=== PATIENT | female | born 1955 | race American Indian/Alaskan Native ===

== ENCOUNTER 2017-07-04 07:31 | Day surgery (SDC) | payer MEDICARE, OTHER ==
[2017-06-14 10:50] VITALS: BMI 24.9
[2017-07-04] MEDS ORDERED: Lidocaine 2% Inj (20ml) ONE (07:50)
[2017-07-04] MEDS ORDERED: Midazolam 2 MG/2 ML VIAL ONE ×2 (07:51→08:19)
[2017-07-04] MEDS ORDERED: Iodixanol 320 MG/ML 100 ML BOTTLE IV ONE (07:52)
[2017-07-04] MEDS ORDERED: Nitroglycerin 50mg in D5W 50 MG/250 ML BOTTLE IV ONE (07:52)
[2017-07-04] MEDS ORDERED: Iodixanol 320 MG/ML 200 ML BOTTLE IV ONE (07:52)
[2017-07-04 08:17] LABS: BASO # 0.03 K/mm3 (0.0-2.0); BASO % 0.8 % (0.0-3.0); EOS # 0.1 (0.0-0.7); GRAN # 2.16 (1.4-6.5); GRAN % 54.8 % (50.0-68.0); HEMOGLOBIN 16.7 g/dL (12.0-16.0); LYMPH # 1.3 (1.2-3.4); LYMPH % 32.5 % (22.0-35.0); MEAN CELL VOLUME 92.2 fl (80.0-105.0); MEAN CORPUSCULAR HGB CONC 33.6 g/dl (31.0-37.0); MEAN PLATELET VOLUME 11.1 fl (7.0-11.0); MONO # 0.4 (0.1-0.6); MONO % 8.9 % (1.0-6.0); RBC 5.39 10^6/uL (3.5-6.1); RED CELL DISTRIBUTION WIDTH 16.1 % (11.5-14.5); WHITE BLOOD COUNT 3.9 10^3/ul (4.5-11.0)
[2017-07-04] MEDS ORDERED: DiphenhydrAMINE 50 mg/ml Inj ONE (08:57)
[2017-07-04] MEDS ORDERED: Famotidine 20mg/50ml 20 MG/50 ML BAG IVPB ONE (08:58)
[2017-07-04 09:09] LABS: CALCIUM 9.9 mg/dL (8.4-10.5); INR 1.37 (0.93-1.08); PARTIAL THROMBOPLASTIN TIME 39.6 Seconds (25.1-36.5); PROTHROMBIN TIME 15.8 SECONDS (9.4-12.5)
[2017-07-04] MEDS ORDERED: Flumazenil 0.1 mg/ml Inj (5ml) IVP ONE (09:29)
[2017-07-04] MEDS ORDERED: Oxycodone/Acetaminophen 5/325 mg Tab PO PRN (10:22)
[2017-07-04 11:38] VITALS: RESP 18; TEMP 97.9
[2017-07-04 13:04] VITALS: O2SAT 92
[2017-07-04 14:11] VITALS: BP 102/68; PULSE 100
--- NOTE | 2017-07-04 18:18 | VASCULAR ---
PROCEDURE: Abdominal aortogram and bilateral lower extremity runoff with right selective views P HISTORY: End-stage renal disease. PVD with ischemic ulceration right lateral heel. HIV positive. PHYSICIAN(S): Richar Morales MD. TECHNIQUE: The relative risks and indications of the procedure were explained to the patient and consent obtained. The patient was placed supine on the arteriogram table and the left groin prepped and draped in the usual sterile fashion. Conscious sedation and monitoring were provided throughout the procedure by a nurse. Via a left common femoral artery approach, a 5 Icelandic sheath was placed in the left groin. Through the sheath and over a guidewire, a 5 Icelandic flush catheter was placed in the abdominal aorta at the level of the renal arteries and a PA DSA abdominal aortogram performed. The catheter was pulled down to the aortic bifurcation and bilateral oblique DSA pelvic arteriograms performed. Overlapping bilateral lower extremity DSA arteriograms were obtained from the inguinal ligaments to the ankles. The 5 [place]ic flush catheter was advanced over the bifurcation and placed in the proximal and mid right SFA. Additional imaging of the distal right lower extremity and lateral view of the foot was obtained. The sheath was removed and hemostasis obtained. The patient tolerated the procedure well. FINDINGS: The abdominal aorta is widely patent. The renal arteries are atretic, consistent with the patient's history for dialysis. Aortic bifurcation is normal. The common and external iliac arteries are normal and patent. An IVC filter is present. The internal iliac arteries are patent bilaterally. Right lower extremity: Smooth diffuse calcification is noted. The right common femoral artery is patent. The right profunda femoral artery is patent. The right superficial femoral artery is patent and continuous without a radiographically significant stenosis. The right popliteal artery and trifurcation are patent. The 3 right tibial vessels are patent and continuous to the foot. There is slow antegrade flow in the foot. The right dorsalis pedis artery and right plantar arch are patent. Left lower extremity: Left common femoral artery is patent. The left profunda femoral artery is patent. The left superficial femoral artery is patent and continuous without a radiographically significant stenosis. The left popliteal artery and trifurcation. The 3 left tibial vessels are patent and continuous to the ankle. IMPRESSION: 1. Calcified vessels. No significant occlusive disease is noted on the right. The ischemic changes are likely related to microvascular disease.
== END 2017-07-04 14:42 | disposition home or self-care (01) ==
LOC: SDSVAS 07:31
PROVIDERS: ATTEND Radiology Vascular & Interventional Radiology
DX: I73.9 Peripheral vascular disease, unspecified (principal); I12.0 Hypertensive chronic kidney disease with stage 5 chronic kidney disease or end stage renal disease; N18.6 End stage renal disease; L97.419 Non-pressure chronic ulcer of right heel and midfoot with unspecified severity; I48.91 Unspecified atrial fibrillation; Z21 Asymptomatic human immunodeficiency virus [HIV] infection status
CPT/HCPCS: 36247; 36415; 75625; 75716; 75774; 80048; 85025; 85610; 85730; 99152; C1760 ×2; C1769 ×2; C1887; C1894; J1200; J1644; J2250; J2405; J2930; J3010; Q9966; Q9967

== ENCOUNTER 2017-07-24 06:22 | Inpatient (IN) | payer MEDICARE, OTHER ==
--- NOTE | 2017-07-24 07:45 | ED PDOC ---
Arrival/HPI - General Historian: Patient - History of Present Illness Symptom Onset: Gradual Quality: Burning Severity Level: 10 <Jose Childers - Last Filed: 07/24/17 10:31> <YovanaLev Martínez - Last Filed: 07/24/17 12:13> - General Chief Complaint: Lower Extremity Problem/Injury Time Seen by Provider: 07/24/17 06:29 - History of Present Illness Narrative History of Present Illness (Text): 07/24/17 07:43 Patient is a 61 year old female with a past medical history of multiple myeloma s/p chemo/radiation, gangrenous cystitis, ESRD on HD, atrial fibrillation on warfarin, who presents to the Emergency department for evaluation and treatment of left lower extremity pain which began on 07/20/2017 with no specific provoking event. It is important to note that she was placed on warfarin within the past 3 weeks. The left lower extremity pain is characterized as being sharp and burning, remains localized to the left foot, and is quantified as a 10/10. Exacerbated with movement. Remits with rest. States similar symptoms were felt on the right lower extremity. States she recently underwent an angiogram for the right lower extremity with IR, Dr. Morales, which revealed no acute findings. PMD: January Bernard 07/24/17 08:25 07/24/17 09:37 (Jose Childers) Past Medical History - Provider Review Nursing Documentation Reviewed: Yes - Infectious Disease Hx of Infectious Diseases: None - Cardiac Hx Pacemaker: No - Neurological Hx Paralysis: No - Renal Hx Dialysis: Yes Type of Dialysis Access: L arm fistula - Hematological/Oncological Hx Blood Transfusions: No - Musculoskeletal/Rheumatological Hx Musculoskeletal Disorders: No - Psychiatric Hx Emotional Abuse: No Hx Physical Abuse: No Hx Substance Use: No - Anesthesia Hx Anesthesia Reactions: Yes (HIGH TOLERANCE) Hx Malignant Hyperthermia: No - Suicidal Assessment Feels Threatened In Home Enviroment: No <Jose Childers - Last Filed: 07/24/17 10:31> Family/Social History - Physician Review Nursing Documentation Reviewed: Yes Family/Social History: Unknown Family HX Smoking Status: Never Smoked Hx Alcohol Use: No Hx Substance Use: No <Jose Childers - Last Filed: 07/24/17 10:31> Allergies/Home Meds <Jose Childers - Last Filed: 07/24/17 10:31> <Lev Yen - Last Filed: 07/24/17 12:13> Allergies/Adverse Reactions: Allergies IV CONTRAST Allergy (Uncoded 07/24/17 07:23) RASH Home Medications: Home Meds Medication Instructions Recorded Confirmed Alendronate [Fosamax] 70 mg PO Q7D 06/14/17 07/04/17 Cinacalcet [Sensipar] 30 mg PO DAILY 06/14/17 07/04/17 Metoprolol Succinate [Toprol XL] 50 mg PO DAILY 06/14/17 07/04/17 Sevelamer Carbonate [Renvela] 4 tab PO ACTID 06/14/17 07/04/17 Warfarin [Coumadin] 2 mg PO DAILY 06/14/17 07/03/17 traMADol [Ultram] 50 mg PO DAILY 06/14/17 07/04/17 Review of Systems - Review of Systems Constitutional: Normal Eyes: Normal Respiratory: Normal Cardiovascular: Normal Gastrointestinal: Normal Skin: Other (left lower extremity discoloratoin) Neurological: Normal Endocrine: Normal Psychiatric: Normal <Jose Childers - Last Filed: 07/24/17 10:31> Physical Exam Temperature: Afebrile Blood Pressure: Normal Pulse: Regular Respiratory Rate: Normal Appearance: Positive for: Well-Appearing, Non-Toxic, Comfortable Pain Distress: None Mental Status: Positive for: Alert and Oriented X 3 - Systems Exam Head: Present: Atraumatic, Normocephalic Pupils: Present: PERRL Extroacular Muscles: Present: EOMI Conjunctiva: Present: Normal Respiratory/Chest: Present: Clear to Auscultation, Good Air Exchange. No: Respiratory Distress, Accessory Muscle Use Cardiovascular: Present: Normal S1, S2 Abdomen: Present: Normal Bowel Sounds. No: Tenderness, Distention, Rebound Lower Extremity: Present: Edema (left lower extremity), Normal ROM, Tenderness ( left lower extremity). No: Normal Inspection, NORMAL PULSES Neurological: Present: GCS=15, CN II-XII Intact, Motor Func Grossly Intact, Normal Sensory Function Skin: Present: Dry, Induration, Other (cool left foot). No: Normal Color Psychiatric: Present: Alert <Jose Childers - Last Filed: 07/24/17 10:31> Vital Signs Temp Pulse Resp BP Pulse Ox 07/24/17 10:10 105 H 20 90/65 L 95 07/24/17 08:00 104 H 20 95/51 L 96 07/24/17 07:36 107 H 07/24/17 07:10 98.7 F 17 97/60 L 98 Medical Decision Making - Lab Interpretations I have reviewed the lab results: Yes - EKG Interpretation Interpreted by ED Physician: Yes Type: 12 lead EKG <Jose Childers - Last Filed: 07/24/17 10:31> <Lev Yen - Last Filed: 07/24/17 12:13> ED Course and Treatment: Patient is a 61 year old female with a past medical history of multiple myeloma s/p chemo/radiation, gangrenous cystitis, ESRD on HD, atrial fibrillation on warfarin, who presents to the Emergency department for evaluation and treatment of left lower extremity pain. Assessments: 1. Left lower extremity pain 2. Atrial fibrillation with RVR 3. Hyperkalemia 4. Supratherapeutic INR 5. Hx of ESRD on HD 6. Hx of Multiple Myeloma Plan: - CBC, CMP, PT- INR, PTT - left foot xray - left lower extremity arterial and venous ultrasound - EKG - blood cultures x 2 - vancomycin x 1, zosyn x 1 both renally dosed - IVF NS 500cc bolus at 75cc/hr - kayexylate 30mg x 1 - no acute signs of bleed- no vitamin K or FFP indicated at this time - podiatry, nephrology, and interventional radiology consults placed - 07/24/17 09:56 podiatry resident arrived to Emergency department, MRI ordered to evaluate for osteomylelitis - 07/24/17 10:30, Dr. Morales contacted- no acute intervention required at this time - 07/24/17 10:[address] Ambrosio's Service who accepted patient to the service for further managment (Jose Childers) A 61 year old male with left lower extremity pain. In agreement with resident note, which includes further HPI details. Patient was seen and evaluated with resident, came up with plan and treatment together. EKG shows atrial fibrillation at [address] changes. Interpreted by me. Patient was seen by Podiatry Resident and consult was placed. Discussed case with Dr. Richar Morales who state she recently did a CT Angio on the right leg but also ran some images on the left. He will follow up with patient on admission for further plan of treatment. Case discussed with Dr. Ambrosio who will admit under her service. Dr. Schrader, renal, was also called to let her know her patient could benefit from dialysis today. Preparations are being made for dialysis. (Lev Yen) - Lab Interpretations Lab Results: 07/24/17 07:55 07/24/17 09:15 Lab Results 07/24/17 09:15: PT 73.2 H, INR 6.13 H*, APTT 63.1 H 07/24/17 09:15: Sodium 135, Potassium 6.3 H* D, Chloride 94 L, Carbon Dioxide 24 , Anion Gap 24 H, BUN 38 H, Creatinine 6.8 H, Est GFR ( Amer) 7, Est GFR (Non-Af Amer) 6, Random Glucose 74, Calcium 9.2, Total Bilirubin 1.5 H, AST 23, ALT 25, Alkaline Phosphatase 214 H, Total Protein 7.8, Albumin 4.2, Globulin 3.6 , Albumin/Globulin Ratio 1.2 07/24/17 07:55: WBC 18.6 H D, RBC 5.14, Hgb 15.9, Hct 47.6, MCV 92.6, MCH 30.9, MCHC 33.4, RDW 15.4 H, Plt Count 95 L, MPV 12.0 H, Gran % 90.0 H, Lymph % (Auto ) 4.8 L, [place] % (Auto) 5.1, Eos % (Auto) 0.0 L, Baso % (Auto) 0.1, Gran # 16.72 H, Lymph # (Auto) 0.9 L, [place] # (Auto) 0.9 H, Eos # (Auto) 0.0, Baso # (Auto) 0.01, Neutrophils % (Manual) 92 H, Lymphocytes % (Manual) 2 L, Monocytes % ( Manual) 6, Platelet Evaluation Low - RAD Interpretation Radiology Orders: 07/24/17 07:49 LOWER EXT ART NON-INV COMPL [US] Stat 07/24/17 07:53 DUPLEX LOWER EXTRM VEIN LEFT [US] Stat 07/24/17 07:56 FOOT LEFT 3 VIEWS ROUTINE [RAD] Stat 07/24/17 10:09 FOOT W/O CONTRAST LEFT [MRI] Routine - Medication Orders Current Medication Orders: Sodium Chloride (Sodium Chloride 0.9%) 500 mls @ 75 mls/hr IV .Q6H40M FINN Last Admin: 07/24/17 10:40 Dose: 75 mls/hr eMAR Start Stop Document 07/24/17 10:40 TYLER (Rec: 07/24/17 10:40 TYLER OLIVEIRA-PC) Intravenous Solution Start Date 07/24/17 Start Time 10:40 Discontinued Medications Vancomycin HCl (Vancomycin 500mg In Ns) 500 mg in 100 mls @ 200 mls/hr IVPB STAT STA PRN Reason: Protocol Stop: 07/24/17 09:41 Last Admin: 07/24/17 10:00 Dose: 200 mls/hr eMAR Start Stop Document 07/24/17 10:00 TYLER (Rec: 07/24/17 10:00 TYLER OLIVEIRA-PC) Intravenous Solution Start Date 07/24/17 Start Time 10:00 End Date 07/24/17 End time 11:00 Total Infusion Time 60 Piperacillin Sod/Tazobactam Sod (Zosyn 2.25 Gm In 0.9% 100 Ml) 2.25 gm in 100 mls @ 100 mls/hr IVPB STAT STA PRN Reason: Protocol Stop: 07/24/17 10:13 Last Admin: 07/24/17 09:28 Dose: 100 mls/hr eMAR Start Stop Document 07/24/17 09:28 TYLER (Rec: 07/24/17 09:30 TYLER OLIVEIRA-PC) Intravenous Solution Start Date 07/24/17 Start Time 09:29 End Date 07/24/17 End time 10:00 Total Infusion Time 31 Morphine Sulfate (Morphine) 2 mg IVP STAT STA Stop: 07/24/17 11:44 Sodium Polystyrene Sulfonate (Kayexalate Susp) 30 gm PO STAT STA Stop: 07/24/17 09:48 Last Admin: 07/24/17 10:01 Dose: 30 gm Tramadol HCl (Ultram) 50 mg PO STAT STA Stop: 07/24/17 09:33 Last Admin: 07/24/17 09:39 Dose: 50 mg MAR Pain Assessment Document 07/24/17 09:39 TYLER (Rec: 07/24/17 09:39 TYLER OLIVEIRA-PC) Pain Reassessment Is this a pain reassessment? No Sleep Is patient sleeping during reassessment? No Presence of Pain Presence of Pain Yes Pain Scale Used Pain Scale Used Numeric Description Description Intermittent Intensity of Pain at present 8 - PA / DISASTER DIRECTOR / Resident Statement MD/DO has reviewed & agrees with the documentation as recorded. /DO has examined the patient and agrees with the treatment plan. <Lev Yen - Last Filed: 07/24/17 12:13> Disposition/Present on Arrival - Present on Arrival Any Indicators Present on Arrival: Yes History of DVT/PE: No History of Uncontrolled Diabetes: No Urinary Catheter: No History of Decub. Ulcer: No History Surgical Site Infection Following: None - Disposition Have Diagnosis and Disposition been Completed?: Yes Disposition Time: 10:43 <Jose Childers - Last Filed: 07/24/17 10:31> - Present on Arrival Any Indicators Present on Arrival: Yes - Disposition Have Diagnosis and Disposition been Completed?: Yes Patient Plan: Admission <Lev Yen - Last Filed: 07/24/17 12:13> - Disposition Diagnosis: Left leg pain Patient Problems: Current Active Problems Problem Status Onset Left leg pain Acute Condition: GUARDED
[2017-07-24 08:15] LABS: BASO # 0.01 K/mm3 (0.0-2.0); BASO % 0.1 % (0.0-3.0); GRAN # 16.72 (1.4-6.5); HEMOGLOBIN 15.9 g/dL (12.0-16.0); LYMPH # 0.9 (1.2-3.4); LYMPH % 4.8 % (22.0-35.0); MEAN CELL VOLUME 92.6 fl (80.0-105.0); MEAN CORPUSCULAR HEMOGLOBIN 30.9 pg (25.0-35.0); MEAN CORPUSCULAR HGB CONC 33.4 g/dl (31.0-37.0); MONO # 0.9 (0.1-0.6); MONO % 5.1 % (1.0-6.0); PLATELET COUNT 95 10^3/uL (120.0-450.0); RBC 5.14 10^6/uL (3.5-6.1); RED CELL DISTRIBUTION WIDTH 15.4 % (11.5-14.5); WHITE BLOOD COUNT 18.6 10^3/ul (4.5-11.0)
[2017-07-24 09:04] LABS: LYMPHOCYTE 2 % (22.0-35.0); MONOCYTE 6 % (1.0-6.0); NEUTROPHIL 92 % (50.0-70.0); PLATELET ESTIMATE LOW (NORMAL)
[2017-07-24] MEDS ORDERED: Vancomycin 500mg in NS 500 MG/100 ML BAG IVPB STA (09:12)
[2017-07-24] MEDS ORDERED: Piperacillin/Tazobact 2.25gm 2.25 GM/100 ML BAG IVPB STA (09:14)
--- NOTE | 2017-07-24 09:39 | US ---
PROCEDURE: Lower extremity GRIS exam HISTORY: Peripheral vascular disease with ischemic pain left lower extremity. PHYSICIAN(S): Richar Morales MD. FINDINGS: The resting GRIS's inaccurate due to calcification. The resting ABIs are not obtainable. The brachial systolic pressures are symmetric. The high thigh pressures noncompressible. The high thigh PVR waveforms are relatively normal and symmetric. The calf PVR waveforms do not augment. This is consistent with bilateral SFA occlusive disease. The ankle and metatarsal waveforms severely blunted and nearly flat. This is consistent with bilateral popliteal, trifurcation, and/ or tibial disease. IMPRESSION: 1. Limited exam due to calcified vessels. 2. Bilateral SFA disease. 3. Bilateral popliteal, trifurcation, and/ or tibial disease. 4. If clinically indicated, further evaluation with MRA with gadolinium runoff, CTA runoff, or conventional arteriogram can be considered
--- NOTE | 2017-07-24 09:40 | US ---
PROCEDURE: Left lower extremity venous US HISTORY: Leg pain and swelling. Evaluate for DVT. PHYSICIAN(S): Richar Morales MD. TECHNIQUE: Duplex sonography and color-flow Doppler with graded compression were used to evaluate the deep venous system of the left lower extremity. The exam is limited by edema. FINDINGS: The visualized deep venous system of the left lower extremity is sonographically normal and compressible. Normal wave forms and augmentation are seen. There is no sonographic evidence for deep venous thrombosis in the visualized segments of the left lower extremity. IMPRESSION: 1. No sonographic evidence for deep venous thrombosis in the visualized segments of the left lower extremity.
[2017-07-24 09:44] LABS: PARTIAL THROMBOPLASTIN TIME 63.1 Seconds (25.1-36.5); PROTHROMBIN TIME 73.2 SECONDS (9.4-12.5)
[2017-07-24 09:45] LABS: ALB/GLOB RATIO 1.2 (1.1-1.8); ALBUMIN 4.2 g/dL (3.0-4.8); CALCIUM 9.2 mg/dL (8.4-10.5); INR 6.13 (0.93-1.08)
[2017-07-24] MEDS ORDERED: Sod Polystyrene Sulf 15 gm/60 ml Susp PO STA (09:47)
[2017-07-24] MEDS ORDERED: Sodium Chloride 0.9% 500 ML IV SCH ×2 (10:15→22:14)
--- NOTE | 2017-07-24 10:55 | RAD ---
PROCEDURE: Left Foot Radiographs. HISTORY: left lower extremity pain COMPARISON: None. FINDINGS: BONES: There is a well-defined cortical defect in the proximal 5th metatarsal that is most consistent with an old fracture. There is also periosteal thickening in the 3rd and 4th metatarsal JOINTS: Normal. SOFT TISSUES: Normal. OTHER FINDINGS: None. IMPRESSION: There is a well-defined cortical defect in the proximal 5th metatarsal that is most consistent with an old fracture. There is also periosteal thickening in the 3rd and 4th metatarsal
--- NOTE | 2017-07-24 11:33 | CP.PCM.CON ---
<Tab Seo - Last Filed: 07/24/17 11:41> History of Present Illness - History of Present Illness History of Present Illness: Podiatry Consult Note for Attending Dr. Love 61F with PMHx multiple myeloma s/p chemo/radiation, gangrenous cystitis, ESRD on HD, atrial fibrillation on warfarin seen in ED accompanied by her daughter complaining of new onset, diffuse pain to left foot. Patient states that she sees Dr. Love every in the wound care center for a small, uninfected ulceration on her right foot as well as a small ulceration to the nail bed of her left hallux. She states that last evening she began experiencing increased pain and swelling to her left foot and leg that got progressively worse as the weekend went on, prompting her to come to the ED. She can not pinpoint exactly where the pain is worst. She denies any new trauma to the foot. She also states that last week she was seen by Dr. Richar Morales. It was determined at that time that she has severe pedal disease but no occlusions to the left LE and no vascular intervention could be performed or recommended. Patient is AAO x 3 and NAD throughout the entirety of her examination. She denies any further pedal complaints at this time. Denies any recent N/V/F/C/CP/ SOB/D/posterior calf pain when squeezed. Meds: See MAR All: IV Contrast FHx: Non contributory Review of Systems - Review of Systems All systems: reviewed and no additional remarkable complaints except Review of Systems: as per HPI Past Patient History - Infectious Disease Hx of Infectious Diseases: None - Past Social History Smoking Status: Never Smoked - CARDIAC Hx Pacemaker: No - NEUROLOGICAL Hx Paralysis: No - RENAL Type of Dialysis Access: L arm fistula - HEMATOLOGICAL/ONCOLOGICAL Hx Blood Transfusions: No - MUSCULOSKELETAL/RHEUMATOLOGICAL Hx Musculoskeletal Disorders: No - PSYCHIATRIC Hx Emotional Abuse: No Hx Physical Abuse: No Hx Substance Use: No - SURGICAL HISTORY Hx Surgeries: Yes - ANESTHESIA Hx Anesthesia Reactions: Yes (HIGH TOLERANCE) Hx Malignant Hyperthermia: No Meds Allergies/Adverse Reactions: Allergies Allergy/AdvReac Type Severity Reaction Status Date / Time IV CONTRAST Allergy RASH Uncoded 07/24/17 07:23 - Medications Medications: Current Medications Sodium Chloride (Sodium Chloride 0.9%) 500 mls @ 75 mls/hr IV .Q6H40M [facility] Last Admin: 07/24/17 10:40 Dose: 75 mls/hr Physical Exam - Constitutional Appears: Well, Non-toxic, No Acute Distress - Head Exam Head Exam: ATRAUMATIC, NORMOCEPHALIC - Eye Exam Eye Exam: EOMI, PERRL - ENT Exam ENT Exam: Mucous Membranes Moist, Normal Exam - Neck Exam Neck exam: Positive for: Full Rom. Negative for: Tenderness - Respiratory Exam Respiratory Exam: NORMAL BREATHING PATTERN. absent: Respiratory Distress - Extremities Exam Additional comments: B/l LE focused exam Vasc: DP/PT pulses faintly palpable to b/l LE. CFT < 3 seconds to right digits; > 3 seconds to left digits secondary to 1+ pitting edema of entire LLE. Skin temperature warm to warm WNL of left LE an increased to RLE Neuro: Epicritic and protective sensation grossly intact b/l Derm: RLE - Approximately 0.2 cm x 0.2 cm x 0.1 cm ulceration noted to right lateral heel. Base mostly fibrotic. No erythema, malodor, drainage, probe to bone, tracking, tunneling or undermining noted. No other clinical signs of infection noted LLE- Approximately 2 cm x 1 cm bullae noted to left dorsal foot, most likely from surgical shoe that patient has been wearing. Hallux nail plate noted to be missing from digit with underlying laceration. Dried blood noted to base. MSK: Diffuse pain noted to left foot and leg with palpation, especially at site of blister and left hallux. No POP to right foot ulceration. No other gross deformities noted b/l - Neurological Exam Neurological exam: Alert, Oriented x3 - Psychiatric Exam Psychiatric exam: Normal Affect, Normal Mood - Skin Skin Exam: Normal Color, Warm Results - Vital Signs Recent Vital Signs: Last Vital Signs Temp 98.7 F 07/24/17 07:10 Pulse 105 H 07/24/17 10:10 Resp 20 07/24/17 10:10 BP 90/65 L 07/24/17 10:10 Pulse Ox 95 07/24/17 10:10 - Labs Result Diagrams: 07/24/17 07:55 07/24/17 09:15 Assessment & Plan - Assessment and Plan (Free Text) Assessment: 61F seen in ED for new onset, diffuse pain to left foot and leg Plan: Patient seen and evaluated Plan discussed with attending Dr. Love Afebrile WBC 18.6 LE arterial duplex: 1. Limited exam due to calcified vessels 2. B/l SFA disease 3. B/l popliteal, trifurcation, and/or tibial disease 4. If clinically indicated , further evaluation with MRA with gadolinium runoff, CTA runoff or conventional arteriogram can be considered LE venous duplex: No sonographic evidence of DVT L foot xray: There is a well defined cortical defect in the proximal fifth metatarsal that is most consistent with an old fracture. There is also periosteal thickening in the third and fourth metatarsal ID consult placed, Dr. Ochoa - corey appreciated MRI foot w/o contrast ordered; r/o OM Wound culture of left hallux wound taken; f/u results PT eval placed; patient to remain NWB to left side Dressing to right foot wound reapplied Left foot wound dressed with DSD Bullae left intact Patient to be admitted to floors No plan for surgical intervention at this time Podiatry will continue to follow while patient in house - Date & Time Date: 07/24/17 Time: 12:37 <Leesa Love - Last Filed: 07/30/17 20:17> Results - Vital Signs Recent Vital Signs: Last Vital Signs Temp 96.0 F L 07/28/17 06:00 Pulse 84 07/28/17 10:00 Resp 18 07/28/17 06:00 BP 87/41 L 07/28/17 06:00 Pulse Ox 89 L 07/28/17 06:00 - Labs Result Diagrams: 07/28/17 06:30 07/28/17 15:10 Attending/Attestation - Attestation I have personally seen and examined this patient.: Yes I have fully participated in the care of the patient.: Yes I have reviewed all pertinent clinical information: Yes
[2017-07-24] MEDS ORDERED: Morphine 4 mg/ml ISec IVP STA (11:43)
[2017-07-24] MEDS ORDERED: Barium Sulfate Susp 2.1% w/v, 2.0% w/w 450 mL Bottle PO ONE (12:20)
--- NOTE | 2017-07-24 12:48 | CARD ---
APPROVED REPORT EKG Measurement Heart [id number] <Conclusion> ARon Lim. RVCD ASMI, age unknown Low voltage NSSTW changes
--- NOTE | 2017-07-24 15:14 | CT ---
PROCEDURE: CT Abdomen and Pelvis without intravenous contrast HISTORY: weight loss, lack of appetite COMPARISON: None. TECHNIQUE: Without contrast. Contrast dose: Radiation dose: Total exam DLP = 505 mGy-cm. This CT exam was performed using one or more of the following dose reduction techniques: Automated exposure control, adjustment of the mA and/or kV according to patient size, and/or use of iterative reconstruction technique. FINDINGS: LOWER THORAX: Small right-sided pleural effusion LIVER: Unremarkable. No gross lesion or ductal dilatation. GALLBLADDER AND BILE DUCTS: Gallbladder removed PANCREAS: Unremarkable. No gross lesion or ductal dilatation. SPLEEN: Unremarkable. ADRENALS: Unremarkable. No mass. KIDNEYS AND URETERS: Kidneys are atrophic and contain multiple cysts. VASCULATURE: Caval filter. Multiple vascular calcifications BOWEL: Unremarkable. No obstruction. No gross mural thickening. There is absence of abdominal fat. There is also anasarca with subcutaneous edema and mesenteric edema. This makes it difficult to exclude inflammatory changes. APPENDIX: Unremarkable. Normal appendix. PERITONEUM: Unremarkable. No free fluid. No free air. LYMPH NODES: Unremarkable. No enlarged lymph nodes. BLADDER: Unremarkable. REPRODUCTIVE: Unremarkable. BONES: Surgical hardware in the lower thoracic spine OTHER FINDINGS: None. IMPRESSION: Anasarca with subcutaneous and mesenteric edema. Minimal abdominal fat. No evidence of malignancy.
[2017-07-24] MEDS ORDERED: DiphenhydrAMINE 50 mg/ml Inj IVP STA (15:57)
--- NOTE | 2017-07-24 21:05 | CON ---
DATE: 07/24/2017 REASON FOR CONSULTATION: Hyperkalemia, need for dialysis. HISTORY OF PRESENTING ILLNESS: A 61-year-old lady known to me from outpatient hemodialysis. The patient presented to the emergency room with complaints of pain in her left lower extremity. She is complaining of pain in her left foot. She reports that she has been having pain in her extremities. The pain in the left foot got worse over the last 1 week. She denies any fall. She denies any gait disturbance. She also reports that her appetite is very poor. She has lost a lot of weight. She denies any fevers, chills. She denies any nausea, vomiting or diarrhea. She denies any urinary complaints. PAST MEDICAL AND SURGICAL HISTORY: Multiple myeloma diagnosed in 2003, status post radiation, status post chemotherapy, ESRD, atrial fibrillation, peripheral vascular disease, anemia of chronic kidney disease, recent significant weight loss, history of cholecystectomy, left AV fistula. FAMILY HISTORY: Noncontributory. SOCIAL HISTORY: No smoking, no alcohol use, no IV drug abuse. ALLERGIES: IV CONTRAST. MEDICATIONS AT HOME: Tramadol, Coumadin, Renvela, Toprol-XL 50, cinacalcet 30, Fosamax. REVIEW OF SYSTEMS: All systems are reviewed, pertinent positives as mentioned in history of presenting illness, rest unremarkable. PHYSICAL EXAMINATION: GENERAL: Elderly lady lying in bed, with bitemporal wasting. VITAL SIGNS: Blood pressure 96/65, heart rate 108, respiratory rate 20, temperature 98.7. HEENT: Normocephalic, atraumatic, positive pallor. NECK: Supple, no JVD. LUNGS: Bilateral equal air entry, bilateral equal expansion. CARDIAC: S1 and S2, regular rate and rhythm, no murmur, no rub. ABDOMEN: Soft, nondistended, nontender, bowel sounds present. EXTREMITIES: Dressing of the left foot, no edema of the right foot. LABORATORY DATA: WBC 18.6, hemoglobin 15.9, hematocrit 47.6, platelets 95. Sodium 135, potassium 6.3, chloride 94, CO2 24, BUN 38, creatinine 6.8, glucose 74, calcium 9.2. Total bili 1.5, AST 23, ALT 25, albumin 4.2. Lower extremity Doppler, bilateral SFA disease. No DVT. X-ray of the foot, old fracture of the fifth metatarsal of the left foot. ASSESSMENT: 1. Hyperkalemia. 2. Ulcer left foot. 3. History of multiple myeloma. 4. Atrial fibrillation. 5. Recent history of significant weight loss and poor appetite. PLAN: 1. Urgent dialysis with a potassium [address] scan of the abdomen with p.o. contrast to evaluate for weight loss. 3. Multiple myeloma appears to be in remission, normal albumin, normal hemoglobin, normal calcium. 4. (?) [employer] evaluation. Breana Schrader MD
[2017-07-24] MEDS ORDERED: TraMADol/Apap 37.5/325 mg Tab PO PRN (22:12)
[2017-07-24 22:20] VITALS: BMI 22.7
[2017-07-24] MEDS ORDERED: Pneumococcal 23-Valent Vaccine IM ONE (22:21)
--- NOTE | 2017-07-24 22:49 | HP ---
HISTORY OF PRESENT ILLNESS: The patient is a 61-year-old, came to the emergency room because of left foot pain. The patient was accompanied by the daughter, states pain is diffuse and unbearable. The patient has been following with Dr. [facility] every Monday for ulcer that she has on her right foot as well as a small ulcer on to the nail bed of her left big toe. The patient states that she started to have left foot pain since last week but got worse, so she came to the emergency room for further evaluation. Denies any trauma to the foot. Denies any fever or chills. The patient was also evaluated by Dr. Richar Morales who evaluated her vascular status and no intervention was needed because she has small vessel disease. PAST MEDICAL HISTORY: She has significant past medical history for: 1. Multiple myelomas. She is on chemotherapy. 2. History of gangrenous cystitis. 3. End-stage renal disease, on hemodialysis. 4. Chronic AFib, on Coumadin. ALLERGIES: SHE IS ALLERGIC TO IV CONTRAST DYE. MEDICATION AT HOME: She is on tramadol 50 mg t.i.d. p.r.n., Coumadin 2 mg daily, Renvela 4 tablets before each meal, metoprolol 50 mg daily, Sensipar 30 mg daily, and Fosamax 70 mg once a week. SOCIAL HISTORY: Denies smoking, drinking, or alcohol use. PHYSICAL EXAMINATION: GENERAL: She is awake, alert, oriented, and communicative. VITAL SIGNS: She is afebrile, pulse 108, respirations 17, blood pressure 96/56. LUNGS: Bilateral fair air flow. No rhonchi or crackles. HEART: S1 and S2 audible. ABDOMEN: Soft, nontender. No rebound, no guarding. NEUROLOGICAL: She is awake, alert, oriented, able to communicative. EXTREMITIES: Right lower extremity, she has a small ulceration to the right lateral aspect of the heel. No erythema or discharge noted. Left lower extremity, she has small blisters to the left dorsal foot. LABORATORY DATA: X-ray of the foot shows well-defined cortical defect in the proximal 5th metatarsal that is most consistent with old fracture. There is also periosteal thickening in the 3rd and the 5th metatarsal. The patient had venous Doppler done that is negative for DVT. On 07/04/2017, she had angiography done, shows calcified vessel, significant occlusive disease on the right side. ASSESSMENT: 1. Left foot pain with bilateral foot ulcers. 2. Peripheral vascular disease, status post angiography showing calcification of vessels. 3. Chronic atrial fibrillation. 4. Hypertension. 5. End-stage renal disease, on hemodialysis. PLAN: The patient has been started on IV fluid. We will give her analgesic, IV antibiotics. Dr. Love for consult, Dr. Ochoa for consult, and Dr. Chang will be consulted also. Local wound care will be done by podiatry team. We will follow up the patient in a.m. Jessica Ambrosio MD
[2017-07-24] MEDS ORDERED: Sodium Chloride 0.9% 250 ML IV STA (22:58)
--- NOTE | 2017-07-24 23:59 | CP.PCM.PN ---
Subjective - Date & Time of Evaluation Date of Evaluation: 07/24/17 Time of Evaluation: 23:55 - Subjective Subjective: Nurse calls and tells that morphine is due for pain, she does not want to give morphine because systolic blood pressure is 84. Patient was seen at bedside. Complains of pain in left foot. Has no other complaints now. She had dialysis today, not known how much fluid was taken out. Medical record was reviewed. This 61 year old woman is admitted with left foot pain, ulcer. Has PMH of ESRD, on HD, multiple myeloma, HTN, chronic fibrillation, feet ulcers ,PVD, gangrenous cystitis. Objective - Vital Signs/Intake and Output Vital Signs (last 24 hours): Temp Pulse Resp BP Pulse Ox 98.2 F 106 H 20 97/56 L 97 07/24/17 22:01 07/24/17 22:01 07/24/17 22:01 07/24/17 22:01 07/24/17 14:30 Intake and Output: 07/24/17 07/25/17 18:59 06:59 Intake Total 240 Output Total 0 Balance 240 - Medications Medications: Current Medications Acetaminophen (Tylenol 325mg Tab) 650 mg PO Q6H PRN PRN Reason: Fever >100.4 F Cinacalcet (Sensipar) 30 mg PO DAILY [facility] Sodium Chloride (Sodium Chloride 0.9%) 500 mls @ 40 mls/hr IV .[id number] [facility] Last Admin: 07/24/17 23:12 Dose: 40 mls/hr Piperacillin Sod/Tazobactam Sod (Zosyn 2.25 Gm In 0.9% 100 Ml) 2.25 gm in 100 mls @ 100 mls/hr IVPB Q8 FINN PRN Reason: Protocol Stop: 08/01/17 06:01 Metoprolol Succinate (Toprol Xl) 50 mg PO DAILY [facility] Morphine Sulfate (Morphine) 2 mg IVP Q4H PRN PRN Reason: Pain, moderate (4-7) Non-Formulary Medication (Sevelamer Carbonate [Renvela]) 4 tab PO ACTID [facility] Ondansetron HCl (Zofran Inj) 4 mg IVP Q6H PRN PRN Reason: Nausea/Vomiting Tramadol/Acetaminophen (Ultracet 37.5/325 Mg) 1 tab PO Q6H PRN PRN Reason: Pain, Mild (1-3) - Labs Labs: PT 73.2 SECONDS (9.4-12.5) H 07/24/17 09:15 INR 6.13 (0.93-1.08) H* 07/24/17 09:15 APTT 63.1 Seconds (25.1-36.5) H 07/24/17 09:15 Micro Results 07/24/17 11:34 Toe Gram Stain - Final Most Recent Lab Values WBC 18.6 10^3/ul (4.5-11.0) H D 07/24/17 07:55 RBC 5.14 10^6/uL (3.5-6.1) 07/24/17 07:55 Hgb 15.9 g/dL (12.0-16.0) 07/24/17 07:55 Hct 47.6 % (36.0-48.0) 07/24/17 07:55 MCV 92.6 fl (80.0-105.0) 07/24/17 07:55 MCH 30.9 pg (25.0-35.0) 07/24/17 07:55 MCHC 33.4 g/dl (31.0-37.0) 07/24/17 07:55 RDW 15.4 % (11.5-14.5) H 07/24/17 07:55 Plt Count 95 10^3/uL (120.0-450.0) L 07/24/17 07:55 MPV 12.0 fl (7.0-11.0) H 07/24/17 07:55 Gran % 90.0 % (50.0-68.0) H 07/24/17 07:55 Lymph % (Auto) 4.8 % (22.0-35.0) L 07/24/17 07:55 Rankin % (Auto) 5.1 % (1.0-6.0) 07/24/17 07:55 Eos % (Auto) 0.0 % (1.5-5.0) L 07/24/17 07:55 Baso % (Auto) 0.1 % (0.0-3.0) 07/24/17 07:55 Gran # 16.72 (1.4-6.5) H 06/04/18 07:55 Lymph # (Auto) 0.9 (1.2-3.4) L 07/24/17 07:55 Rankin # (Auto) 0.9 (0.1-0.6) H 07/24/17 07:55 Eos # (Auto) 0.0 (0.0-0.7) 07/24/17 07:55 Baso # (Auto) 0.01 K/mm3 (0.0-2.0) 07/24/17 07:55 Neutrophils % (Manual) 92 % (50.0-70.0) H 07/24/17 07:55 Lymphocytes % (Manual) 2 % (22.0-35.0) L 07/24/17 07:55 Monocytes % (Manual) 6 % (1.0-6.0) 07/24/17 07:55 Platelet Evaluation Low (NORMAL) 07/24/17 07:55 PT 73.2 SECONDS (9.4-12.5) H 07/24/17 09:15 INR 6.13 (0.93-1.08) H* 07/24/17 09:15 APTT 63.1 Seconds (25.1-36.5) H 07/24/17 09:15 Sodium 135 mmol/L (132-148) 07/24/17 09:15 Potassium 6.3 mmol/L (3.6-5.0) H* D 07/24/17 09:15 Chloride 94 mmol/L (98-107) L 07/24/17 09:15 Carbon Dioxide 24 mmol/L (21-33) 07/24/17 09:15 Anion Gap 24 (10-20) H 07/24/17 09:15 BUN 38 mg/dL (7-21) H 07/24/17 09:15 Creatinine 6.8 mg/dl (0.7-1.2) H 07/24/17 09:15 Est GFR ( Amer) 7 07/24/17 09:15 Est GFR (Non-Af Amer) 6 07/24/17 09:15 Random Glucose 74 mg/dL (70-110) 07/24/17 09:15 Calcium 9.2 mg/dL (8.4-10.5) 07/24/17 09:15 Phosphorus 4.4 mg/dL (2.5-4.5) 07/24/17 09:15 Magnesium 2.1 mg/dL (1.7-2.2) 07/24/17 09:15 Total Bilirubin 1.5 mg/dL (0.2-1.3) H 07/24/17 09:15 AST 23 U/L (14-36) 07/24/17 09:15 ALT 25 U/L (7-56) 07/24/17 09:15 Alkaline Phosphatase 214 U/L (38-126) H 07/24/17 09:15 Total Protein 7.8 g/dL (5.8-8.3) 07/24/17 09:15 Albumin 4.2 g/dL (3.0-4.8) 07/24/17 09:15 Globulin 3.6 gm/dL 07/24/17 09:15 Albumin/Globulin Ratio 1.2 (1.1-1.8) 07/24/17 09:15 - Constitutional Appears: Well - Head Exam Head Exam: ATRAUMATIC, NORMAL INSPECTION, NORMOCEPHALIC - Eye Exam Eye Exam: Normal appearance - ENT Exam ENT Exam: Normal External Ear Exam - Neck Exam Neck Exam: Normal Inspection - Respiratory Exam Respiratory Exam: NORMAL BREATHING PATTERN - Cardiovascular Exam Cardiovascular Exam: absent: JVD - GI/Abdominal Exam GI & Abdominal Exam: absent: Distended - Rectal Exam Rectal Exam: Deferred - Exam Additional comments: Deferred. - Extremities Exam Additional comments: Left foot dressing dry. - Back Exam Back Exam: NORMAL INSPECTION - Neurological Exam Neurological Exam: Alert, Awake, Oriented x3 - Psychiatric Exam Psychiatric exam: Normal Affect, Normal Mood - Skin Skin Exam: Normal Color Assessment and Plan - Assessment and Plan (Free Text) Assessment: Low BP. Left foot pain. ESRD, S/P dialysis today. HTN. Chronic atrial fibrillation. Multiple myeloma. Plan: Toradol 30 mg IV x 1. Normal saline 250 CC IV x 1.
[2017-07-25] MEDS ORDERED: Sodium Chloride 0.9% 1,000 ML IV STA (00:43)
[2017-07-25 01:14] LABS: ARTERIAL BLOOD GAS HCO3 29.2 mmol/L (21-28); ARTERIAL BLOOD GAS HEMOGLOBIN 14.2 g/dL (11.7-17.4); ARTERIAL BLOOD GAS O2 CAPACITY 19.1 mL/dl (16-24); ARTERIAL BLOOD GAS O2 CONTENT 17.4 ML/dl (15-23); ARTERIAL BLOOD GAS O2 SAT 91.1 % (95-98); ARTERIAL BLOOD GAS PCO2 45 mm/Hg (35-45); ARTERIAL BLOOD GAS PH 7.42 (7.35-7.45); ARTERIAL BLOOD GAS TCO2 30.6 mmol.L (22-28)
--- NOTE | 2017-07-25 01:38 | CON ---
DATE: REASON FOR CONSULTATION: Left foot pain. HISTORY OF PRESENT ILLNESS: The patient is a 61-year-old woman who presented with left foot pain since last which is 5 days duration. The history is significant for the fact that the patient had multiple myeloma in 2003 resulting in chronic renal failure requiring dialysis. She also had a history of peripheral vascular disease. She had an angiogram on 07/04/2017 of the right foot for a heel ulcer by Dr. Morales which was shown to have no occlusion. No significant vascular disease. She also has a history of atrial fibrillation and is on anticoagulation. She denied any history of trauma. Five days ago, after dialysis, she experienced left foot pain which has increased in severity and today that she has to cancel her dialysis she presented at the emergency room with the above complaint. PAST MEDICAL HISTORY: Significant for multiple myeloma resulting in chronic renal failure requiring dialysis. She also had atrial fibrillation. SOCIAL HISTORY: She is a nonsmoker. REVIEW OF SYSTEMS: The rest of the review of systems other than what is stated in the past medical history is unremarkable. PHYSICAL EXAMINATION: GENERAL: Shows a slender woman in no distress. HEENT: Within normal limits. LUNGS: Clear. CARDIAC EXAM: Heart rate is irregularly irregular. There is no murmur. ABDOMEN: Soft. EXTREMITIES: Examination of the lower extremities revealed bilateral femoral and popliteal pulses. There is no palpable pedal pulses. The right foot has a 2 x 2 x 1 mm ulcer in the heel which is nontender on the left foot. There is a blister on the dorsum between the fourth and fifth toes. There is also was a missing nail in the first toe. The left foot was warm, swollen and tender in the dorsum. There is no palpable pulses. LABORATORY DATA: Reveals a WBC of 18.6, hemoglobin of 15.9. Chemistry is significant for a potassium of 6.3 which was hemolyzed. BUN of 38 and a creatinine of 6.8. The patient did admit to missing today's dialysis because she was in severe pain. IMPRESSION: The patient has cellulitis of the left foot with an old fracture in that foot. She is to be started on antibiotics. She does fail to improve, she might need an angiogram of the left leg. Chika Chang MD [facility] # [id number]
[2017-07-25] MEDS ORDERED: Sodium Chloride 0.9% 500 ML IV STA (02:20)
--- NOTE | 2017-07-25 04:40 | CP.PCM.CON ---
<Kan Arias - Last Filed: 07/25/17 05:21> History of Present Illness - History of Present Illness History of Present Illness: Critical Care Consult Note for Dr. Christopher Clemons Reason for consult: Hypotension This is a 61 year old female with PMHx multiple myeloma s/p chemotherapy, ESRD on HD, A-fib on Coumadin who had presented to the hospital with left foot pain. This was ongoing since the week prior to her admission. Patient was seen overnight by the house doctor as she was complaining of foot pain. Her opiate was held due to hypotension at the time. She received received dialysis yesterday. Blood pressure at the time of encounter was in the high 70s systolic. Patient states that her pressure fluctuates and that her baseline systolic BP is in the 90s. Patient denies any complaints at this time including subjective fever, chills, chest pain, abdominal pain, flank pain. Patient has history of multiple myeloma that was diagnosed in 2005 for which she had completed chemotherapy treatments many years ago. Patient states that she suffers from memory issues that began after chemotherapy treatments. PMHx: Multiple myeloma s/p chemotherapy and radiation treatments, ESRD on HD MWF , A-fib on Coumadin PSHx: portacath placement, AV fistula Allergies: IV contrast Social: Denies tobacco, alcohol, drugs. Family Hx: Non-contributory PMD: Dr. Wagner Atwood meds: reviewed as per [facility] Review of Systems - Constitutional Constitutional: absent: Chills, Fever - EENT Eyes: absent: Change in Vision Ears: absent: Decreased Hearing Nose/Mouth/Throat: absent: Nasal Congestion - Cardiovascular Cardiovascular: absent: Chest Pain - Respiratory Respiratory: absent: Cough, Dyspnea, Wheezing - Gastrointestinal Gastrointestinal: absent: Abdominal Pain, Nausea, Vomiting - Genitourinary Genitourinary: absent: Flank Pain - Musculoskeletal Musculoskeletal: absent: Back Pain - Integumentary Integumentary: absent: Rash - Neurological Neurological: absent: Weakness - Psychiatric Psychiatric: absent: Anxiety - Endocrine Endocrine: absent: Palpitations Past Patient History - Infectious Disease Hx of Infectious Diseases: None - Past Social History Smoking Status: Never Smoked - CARDIAC Hx Pacemaker: No Hx Peripheral Edema: Yes (ble +1 pitting dry leathery skin) Hx Peripheral Vascular Disease: Yes Other/Comment: left foot cool to touch - PULMONARY Other/Comment: pt had sleep study and was dx with sleep apnea by dr noel, could not tolerate cpap at home needs to follow up with dr noel but has not been feeling well - NEUROLOGICAL Hx Neurological Disorder: No - RENAL Date of Last Dialysis Treatment: 07/24/17 - ENDOCRINE/METABOLIC Hx Endocrine Disorders: No - HEMATOLOGICAL/ONCOLOGICAL Hx Cancer: Yes (multiple myeloma dx 2003) Hx Chemotherapy: Yes (and radiation currently in remission) Hx Human Immunodeficiency Virus (HIV): No (hiv history as per pt) - INTEGUMENTARY Hx Dermatological Problems: Yes Other/Comment: ble discolored +1 pitting edema leathery skin, generalized dry flakey skin over body, dry skin to buttocks no openings, left foot toes ardry flakey skin both feete dry hard 1/2 nail missing from great toe, closed blister to top of foot, ischemic ulceration to left foot, painful, dry skin and toes r ft - MUSCULOSKELETAL/RHEUMATOLOGICAL Hx Falls: No - GASTROINTESTINAL Hx Gastrointestinal Disorders: Yes (weight loss poor appetite) - GENITOURINARY/GYNECOLOGICAL Hx Genitourinary Disorders: Yes (gangrenous cystitis) - PSYCHIATRIC Hx Substance Use: No - SURGICAL HISTORY Hx Surgeries: Yes Hx Cholecystectomy: Yes (2007) Other/Comment: left arm av fistula, r arm port in and out post chemo when dx with multiple myeloma, angiogram rle 07/04/17 dr vale barakat, fistulagram - ANESTHESIA Hx Anesthesia Reactions: Yes (HIGH TOLERANCE) Hx Malignant Hyperthermia: No Meds Allergies/Adverse Reactions: Allergies Allergy/AdvReac Type Severity Reaction Status Date / Time IV CONTRAST Allergy RASH Uncoded 07/24/17 07:23 - Medications Medications: Current Medications Acetaminophen (Tylenol 325mg Tab) 650 mg PO Q6H PRN PRN Reason: Fever >100.4 F Cinacalcet (Sensipar) 30 mg PO DAILY [facility] Sodium Chloride (Sodium Chloride 0.9%) 500 mls @ 40 mls/hr IV .[id number] [facility] Last Admin: 07/24/17 23:12 Dose: 40 mls/hr Piperacillin Sod/Tazobactam Sod (Zosyn 2.25 Gm In 0.9% 100 Ml) 2.25 gm in 100 mls @ 100 mls/hr IVPB Q8 [facility] PRN Reason: Protocol Stop: 08/01/17 06:01 Metoprolol Succinate (Toprol Xl) 50 mg PO DAILY [facility] Morphine Sulfate (Morphine) 2 mg IVP Q4H PRN PRN Reason: Pain, moderate (4-7) Non-Formulary Medication (Sevelamer Carbonate [Renvela]) 4 tab PO ACTID [facility] Ondansetron HCl (Zofran Inj) 4 mg IVP Q6H PRN PRN Reason: Nausea/Vomiting Tramadol/Acetaminophen (Ultracet 37.5/325 Mg) 1 tab PO Q6H PRN PRN Reason: Pain, Mild (1-3) Physical Exam - Constitutional Appears: No Acute Distress - Head Exam Head Exam: ATRAUMATIC, NORMOCEPHALIC - Eye Exam Eye Exam: EOMI, PERRL - ENT Exam ENT Exam: Mucous Membranes Dry - Respiratory Exam Respiratory Exam: Rales (right lower lung field), NORMAL BREATHING PATTERN. absent: Rhonchi, Wheezes - Cardiovascular Exam Cardiovascular Exam: Tachycardia, +S1, +S2 - GI/Abdominal Exam GI & Abdominal Exam: Normal Bowel Sounds, Soft. absent: Distended, Tenderness - Extremities Exam Additional comments: AV fistula on left arm with bruits Right foot heel ulcer Left foot cellulitic changes and hallux ulceration - Neurological Exam Neurological exam: Alert, CN II-XII Intact, Oriented x3 - Psychiatric Exam Psychiatric exam: Normal Affect, Normal Mood - Skin Skin Exam: Dry, Warm Results - Vital Signs Recent Vital Signs: Last Vital Signs Temp 100.6 F H 07/25/17 00:30 Pulse 113 H 07/25/17 03:00 Resp 18 07/25/17 03:00 BP 88/52 L 07/25/17 03:00 Pulse Ox 95 07/25/17 03:00 - Labs Result Diagrams: 07/24/17 07:55 07/24/17 09:15 Labs: Laboratory Results - last 24 hr 07/25/17 07/25/17 01:08 01:40 pCO2 45 pO2 51.0 L HCO3 29.2 H ABG pH 7.42 ABG Total CO2 30.6 H ABG O2 Saturation 91.1 L ABG O2 Content 17.4 ABG Base Excess 4.0 H ABG Hemoglobin 14.2 ABG Carboxyhemoglobin 2.7 H POC ABG HHb (Measured) 8.6 H ABG Methemoglobin 1.2 ABG O2 Capacity 19.1 Hgb O2 Saturation 87.5 L FiO2 21.0 Lactic Acid 2.5 H Assessment & Plan - Assessment and Plan (Free Text) Assessment: This is a 61 year old female with PMHx multiple myeloma s/p chemotherapy, ESRD on HD, A-fib on Coumadin who had presented to the hospital with left foot pain. Critical care consulted for hypotension. Patient asymptomatic at this time. Plan: Labs and echocardiogram ordered. At this time, patient may remain in the current setting as she is currently asymptomatic. Continue IV antibiotics. Continue to monitor blood pressure. Please re-consult as needed. Discussed with Dr. Christopher Arias PGY-1 <Christopher Clemons N - Last Filed: 07/28/17 05:24> Meds - Medications Medications: Current Medications Acetaminophen (Tylenol 325mg Tab) 650 mg PO Q6H PRN PRN Reason: Fever >100.4 F Aspirin (Ecotrin) 81 mg PO DAILY [facility] Last Admin: 07/27/17 09:55 Dose: 81 mg Cinacalcet (Sensipar) 30 mg PO DAILY [facility] Last Admin: 07/27/17 09:55 Dose: 30 mg Digoxin (Digoxin) 0.125 mg PO 1400 [facility] Cefepime HCl (Maxipime 1gm) 1 gm in 100 mls @ 100 mls/hr IVPB Q24H [facility] PRN Reason: Protocol Last Admin: 07/27/17 13:13 Dose: 100 mls/hr Sodium Chloride (Sodium Chloride 0.9%) 250 mls @ 250 mls/hr IV .Q1H [facility] Sodium Chloride (Sodium Chloride 0.9%) 1,000 mls @ 60 mls/hr IV .[id number] [facility] Last Admin: 07/27/17 22:59 Dose: 60 mls/hr Midodrine (Proamatine) 5 mg PO TID [facility] Last Admin: 07/27/17 17:02 Dose: 5 mg Morphine Sulfate (Morphine) 2 mg IVP Q4H PRN PRN Reason: Pain, moderate (4-7) Last Admin: 07/27/17 13:54 Dose: 2 mg Sevelamer Carbonate ([Renvela]) 4 tab PO ACTID [facility] Last Admin: 07/27/17 16:31 Dose: Not Given Ondansetron HCl (Zofran Inj) 4 mg IVP Q6H PRN PRN Reason: Nausea/Vomiting Tramadol/Acetaminophen (Ultracet 37.5/325 Mg) 1 tab PO Q6H PRN PRN Reason: Pain, Mild (1-3) Verapamil HCl (Verapamil Inj) 2.5 mg IVP Q6 PRN PRN Reason: Heart rate Last Admin: 07/26/17 23:28 Dose: 2.5 mg Verapamil HCl (Calan Tab) 40 mg PO TID [facility] Last Admin: 07/27/17 17:03 Dose: 40 mg Results - Vital Signs Recent Vital Signs: Last Vital Signs Temp 97.3 F L 07/27/17 18:00 Pulse 58 L 07/27/17 22:00 Resp 18 07/27/17 18:00 BP 62/48 L 07/27/17 18:00 Pulse Ox 99 07/27/17 18:00 - Labs Result Diagrams: 07/27/17 06:00 07/27/17 22:56 Labs: Laboratory Results - last 24 hr 07/26/17 07/27/17 07/27/17 15:30 06:00 06:00 WBC 12.4 H RBC 5.36 Hgb 16.2 H Hct 49.2 H MCV 91.8 MCH 30.2 MCHC 32.9 RDW 15.6 H Plt Count 120 MPV 11.6 H Gran % 87.9 H Lymph % (Auto) 5.4 L [place] % (Auto) 4.3 Eos % (Auto) 2.2 Baso % (Auto) 0.2 Gran # 10.94 H Lymph # (Auto) 0.7 L [place] # (Auto) 0.5 Eos # (Auto) 0.3 Baso # (Auto) 0.02 PT 28.5 H INR 2.43 H Sodium Potassium Chloride Carbon Dioxide Anion Gap BUN Creatinine Est GFR ( Amer) Est GFR (Non-Af Amer) POC Glucose (mg/dL) Random Glucose Hemoglobin A1c Calcium Phosphorus Magnesium Total Bilirubin AST ALT Alkaline Phosphatase Total Protein Albumin Globulin Albumin/Globulin Ratio Triglycerides Cholesterol LDL Cholesterol Direct HDL Cholesterol CA 19-9 Antigen < 1.4 CA 125 Antigen 47.1 H TSH 3rd Generation Digoxin 07/27/17 07/27/17 07/27/17 06:00 06:00 06:30 WBC RBC Hgb Hct MCV MCH MCHC RDW Plt Count MPV Gran % Lymph % (Auto) [place] % (Auto) Eos % (Auto) Baso % (Auto) Gran # Lymph # (Auto) [place] # (Auto) Eos # (Auto) Baso # (Auto) PT INR Sodium 141 Potassium 4.4 Chloride 97 L Carbon Dioxide 26 Anion Gap 22 H BUN 33 H Creatinine 4.5 H Est GFR ( Amer) 12 Est GFR (Non-Af Amer) 10 POC Glucose (mg/dL) Random Glucose 43 L* D Hemoglobin A1c 5.2 Calcium 8.5 Phosphorus 4.7 H Magnesium 2.0 Total Bilirubin 1.6 H AST 169 H D ALT 88 H Alkaline Phosphatase 207 H Total Protein 6.7 Albumin 3.3 Globulin 3.4 Albumin/Globulin Ratio 1.0 L Triglycerides 111 Cholesterol 118 L LDL Cholesterol Direct < 30 HDL Cholesterol 47 CA 19-9 Antigen CA 125 Antigen TSH 3rd Generation 6.88 H Digoxin 07/27/17 07/27/17 07/27/17 07:29 16:06 21:52 WBC RBC Hgb Hct MCV MCH MCHC RDW Plt Count MPV Gran % Lymph % (Auto) [place] % (Auto) Eos % (Auto) Baso % (Auto) Gran # Lymph # (Auto) [place] # (Auto) Eos # (Auto) Baso # (Auto) PT INR Sodium Potassium Chloride Carbon Dioxide Anion Gap BUN Creatinine Est GFR ( Amer) Est GFR (Non-Af Amer) POC Glucose (mg/dL) 61 L 94 99 Random Glucose Hemoglobin A1c Calcium Phosphorus Magnesium Total Bilirubin AST ALT Alkaline Phosphatase Total Protein Albumin Globulin Albumin/Globulin Ratio Triglycerides Cholesterol LDL Cholesterol Direct HDL Cholesterol CA 19-9 Antigen CA 125 Antigen TSH 3rd Generation Digoxin 07/27/17 07/27/17 22:56 22:56 WBC RBC Hgb Hct MCV MCH MCHC RDW Plt Count MPV Gran % Lymph % (Auto) [place] % (Auto) Eos % (Auto) Baso % (Auto) Gran # Lymph # (Auto) [place] # (Auto) Eos # (Auto) Baso # (Auto) PT INR Sodium 139 Potassium 4.1 Chloride 97 L Carbon Dioxide 28 Anion Gap 18 BUN 44 H Creatinine 5.0 H Est GFR ( Amer) 11 Est GFR (Non-Af Amer) 9 POC Glucose (mg/dL) Random Glucose 97 Hemoglobin A1c Calcium 7.7 L Phosphorus Magnesium 2.1 Total Bilirubin AST ALT Alkaline Phosphatase Total Protein Albumin Globulin Albumin/Globulin Ratio Triglycerides Cholesterol LDL Cholesterol Direct HDL Cholesterol CA 19-9 Antigen CA 125 Antigen TSH 3rd Generation Digoxin 1.2
[2017-07-25 04:56] LABS: BASO # 0.02 K/mm3 (0.0-2.0); BASO % 0.1 % (0.0-3.0); GRAN # 14.93 (1.4-6.5); GRAN % 89.6 % (50.0-68.0); LYMPH # 0.5 (1.2-3.4); LYMPH % 3.2 % (22.0-35.0); MEAN CELL VOLUME 92.7 fl (80.0-105.0); MEAN CORPUSCULAR HEMOGLOBIN 30.2 pg (25.0-35.0); MEAN CORPUSCULAR HGB CONC 32.6 g/dl (31.0-37.0); MEAN PLATELET VOLUME 11.5 fl (7.0-11.0); MONO # 1.2 (0.1-0.6); MONO % 7.1 % (1.0-6.0); RBC 4.63 10^6/uL (3.5-6.1); RED CELL DISTRIBUTION WIDTH 15.8 % (11.5-14.5); WHITE BLOOD COUNT 16.7 10^3/ul (4.5-11.0)
[2017-07-25 05:02] LABS: INR 10.04 (0.93-1.08)
[2017-07-25 05:05] LABS: TROPONIN I 0.08 ng/mL
[2017-07-25] MEDS ORDERED: Phytonadione 5 MG in Sodium Chloride 0.9% 50 ML IV ONE (05:21)
[2017-07-25 05:23] LABS: ALBUMIN 3.6 g/dL (3.0-4.8); CALCIUM 8.5 mg/dL (8.4-10.5)
[2017-07-25] MEDS ORDERED: Dextrose 50% SYRINGE Inj (50 ml) IVP ONE (05:25)
[2017-07-25] MEDS: Piperacillin/Tazobact 2.25gm 2.25 GM/100 ML BAG IVPB SCH ×3 (05:26→21:38)
--- NOTE | 2017-07-25 07:52 | RAD ---
HISTORY: low oxygen saturation COMPARISON: 12/02/2015 FINDINGS: LUNGS: There is chronic calcification and scarring in the right lung apex. There is also scarring in the right middle lobe. Findings are unchanged. There is widening of the mediastinum. This is a new finding. A mediastinal mass cannot be excluded. CT is recommended PLEURA: No significant pleural effusion identified, no pneumothorax apparent. CARDIOVASCULAR: Normal. OSSEOUS STRUCTURES: No significant abnormalities. VISUALIZED UPPER ABDOMEN: Normal. OTHER FINDINGS: None. IMPRESSION: There is chronic calcification and scarring in the right lung apex. There is also scarring in the right middle lobe. Findings are unchanged. There is widening of the mediastinum. This is a new finding. A mediastinal mass cannot be excluded. CT is recommended
[2017-07-25] MEDS: SEVELAMER CARBONATE PO SCH ×3 (08:00→16:24)
[2017-07-25] MEDS ORDERED: Piperacillin/Tazobact 2.25gm 2.25 GM/100 ML BAG IVPB SCH (10:00)
[2017-07-25] MEDS: Metoprolol Succinate 50 mg XL Tab PO SCH (11:05)
[2017-07-25] MEDS: Morphine 2 mg/2 mL syringe IVP PRN (12:38)
--- NOTE | 2017-07-25 13:31 | PN ---
DATE: 07/25/2017 SUBJECTIVE: The patient is 61 years old, seen and examined, looks better than yesterday. More awake and alert. Last night, she has episode of hypotension. She was given fluid bolus with some improvement. The patient states her blood pressure is always chronically low, it runs between 85 to 90 since she is on dialysis. Denies any nausea or vomiting. No diarrhea. PHYSICAL EXAMINATION: VITAL SIGNS: She is afebrile, pulse 116, respirations 18, blood pressure 88/52. LUNGS: Bilateral fair airflow. No rhonchi or crackle. HEART: S1 and S2 audible. ABDOMEN: Soft. Nontender. No rebound. No guarding. NEUROLOGIC: She is awake, alert, oriented, communicative. EXTREMITIES: Bilateral legs, no edema. LABORATORY EXAM: WBC is 16.7, hemoglobin 14, hematocrit 42, platelet 109. PT is 120, INR 10.04. Chemistry: Sodium 142, potassium 4.6, chloride 97, CO2 of 28, BUN 26, creatinine 4.8, blood sugar of 90. Her toe cultures are growing gram-negative chyna. Blood cultures are negative. CT scan of the abdomen and pelvis was done that is unremarkable other than mesenteric edema. ASSESSMENT: 1. Left foot painful ulcer. 2. Peripheral vascular disease, status post angiography by Dr. Richar Morales and heavy calcification of peripheral blood vessels. 3. Chronic atrial fibrillation. 4. Hypertension. 5. Hypotension. 6. End-stage renal disease, on hemodialysis. 7. Leukocytosis. 8. Supratherapeutic Coumadin level. PLAN: She was given vitamin K 5 mg this morning. The patient is on Lidoderm. We will continue on Sensipar, Sevelamer. She is on IV fluid, we will continue that also. Continue her on metoprolol and she is on vancomycin and Zosyn. We will follow up CBC, CMP and PT/INR in the a.m. Jessica Ambrosio MD
--- NOTE | 2017-07-25 15:07 | CP.PCM.CON ---
History of Present Illness - History of Present Illness History of Present Illness: 61 year old female with PMH of ESRD on HD, multiple myeloma S/P chemotherapy and radiation therapy, atrial fibrillation on anticoagulation came in to [facility] because of worsening pain in the left foot which started about 4-5 days ago. She has had a small ulceration on her left hallux since last year and has been seeing a Overhead Distribution Engineer for this. She does not recall specific trauma to the foot, denies animal contacts, no soaking of feet in water. She denies fever or chills , no nausea or vomiting, no headache or dizziness, no sore throat, no cough or rhinorrhea, no abdominal pain, no diarrhea, no dysuria, no chest pain, no SOB. Xray of the left foot shows possible fracture. Infectious Diseases consult is requested to see if the patient has a foot infection. Review of Systems - Review of Systems All systems: reviewed and no additional remarkable complaints except Past Patient History - Infectious Disease Hx of Infectious Diseases: None - Past Social History Smoking Status: Never Smoked - CARDIAC Hx Pacemaker: No Hx Peripheral Edema: Yes (ble +1 pitting dry leathery skin) Hx Peripheral Vascular Disease: Yes Other/Comment: left foot cool to touch - PULMONARY Other/Comment: pt had sleep study and was dx with sleep apnea by dr noel, could not tolerate cpap at home needs to follow up with dr noel but has not been feeling well - NEUROLOGICAL Hx Neurological Disorder: No - RENAL Date of Last Dialysis Treatment: 07/24/17 - ENDOCRINE/METABOLIC Hx Endocrine Disorders: No - HEMATOLOGICAL/ONCOLOGICAL Hx Cancer: Yes (multiple myeloma dx 2003) Hx Chemotherapy: Yes (and radiation currently in remission) Hx Human Immunodeficiency Virus (HIV): No (hiv history as per pt) - INTEGUMENTARY Hx Dermatological Problems: Yes Other/Comment: ble discolored +1 pitting edema leathery skin, generalized dry flakey skin over body, dry skin to buttocks no openings, left foot toes ardry flakey skin both feete dry hard 1/2 nail missing from great toe, closed blister to top of foot, ischemic ulceration to left foot, painful, dry skin and toes r ft - MUSCULOSKELETAL/RHEUMATOLOGICAL Hx Falls: No - GASTROINTESTINAL Hx Gastrointestinal Disorders: Yes (weight loss poor appetite) - GENITOURINARY/GYNECOLOGICAL Hx Genitourinary Disorders: Yes (gangrenous cystitis) - PSYCHIATRIC Hx Substance Use: No - SURGICAL HISTORY Hx Surgeries: Yes Hx Cholecystectomy: Yes (2007) Other/Comment: left arm av fistula, r arm port in and out post chemo when dx with multiple myeloma, angiogram rle 07/04/17 dr vale barakat, fistulagram - ANESTHESIA Hx Anesthesia Reactions: Yes (HIGH TOLERANCE) Hx Malignant Hyperthermia: No Meds Allergies/Adverse Reactions: Allergies Allergy/AdvReac Type Severity Reaction Status Date / Time IV CONTRAST Allergy RASH Uncoded 07/24/17 07:23 - Medications Medications: Current Medications Acetaminophen (Tylenol 325mg Tab) 650 mg PO Q6H PRN PRN Reason: Fever >100.4 F Cinacalcet (Sensipar) 30 mg PO DAILY [facility] Piperacillin Sod/Tazobactam Sod (Zosyn 2.25 Gm In 0.9% 100 Ml) 2.25 gm in 100 mls @ 100 mls/hr IVPB Q12 [facility] PRN Reason: Protocol Stop: 07/25/17 22:59 Sodium Chloride (Sodium Chloride 0.9%) 500 mls @ 40 mls/hr IV .[id number] [facility] Metoprolol Succinate (Toprol Xl) 50 mg PO DAILY [facility] Morphine Sulfate (Morphine) 2 mg IVP Q4H PRN PRN Reason: Pain, moderate (4-7) Non-Formulary Medication (Sevelamer Carbonate [Renvela]) 4 tab PO ACTID [facility] Ondansetron HCl (Zofran Inj) 4 mg IVP Q6H PRN PRN Reason: Nausea/Vomiting Tramadol/Acetaminophen (Ultracet 37.5/325 Mg) 1 tab PO Q6H PRN PRN Reason: Pain, Mild (1-3) Physical Exam - Constitutional Appears: Non-toxic, Chronically Ill - Head Exam Head Exam: NORMAL INSPECTION - ENT Exam ENT Exam: Mucous Membranes Moist - Neck Exam Neck exam: Negative for: Lymphadenopathy, Meningismus - Respiratory Exam Respiratory Exam: Decreased Breath Sounds - Cardiovascular Exam Cardiovascular Exam: +S1, +S2 - GI/Abdominal Exam GI & Abdominal Exam: Soft. absent: Tenderness - Extremities Exam Additional comments: left foot with dressings in place Results - Vital Signs Recent Vital Signs: Last Vital Signs Temp 98.2 F 07/24/17 22:01 Pulse 106 H 07/24/17 22:01 Resp 20 07/24/17 22:01 BP 97/56 L 07/24/17 22:01 Pulse Ox 97 07/24/17 14:30 - Labs Result Diagrams: 07/25/17 04:35 07/25/17 04:35 Assessment & Plan - Assessment and Plan (Free Text) Plan: Assessment Consider left hallux infected ulcer with skin and skin structure infection in a patient with left foot fracture, R/O osteomyelitis ESRD on HD multiple myeloma S/P chemotherapy and radiation therapy atrial fibrillation on anticoagulation Plan Started the patient on a dose of IV Vancomycin and started cefepime pending wound cx; follow up MRI of the left foot follow up further Podiatry recommendations will monitor clinically
--- NOTE | 2017-07-25 15:20 | CP.PCM.PN ---
<Tab Seo - Last Filed: 07/25/17 15:14> Subjective - Date & Time of Evaluation Date of Evaluation: 07/25/17 Time of Evaluation: 15:14 - Subjective Subjective: Podiatry Progress Note for Dr. Saunders 61F seen at bedside for wound to right lateral heel, left hallux wound and left foot blister as well as chronic Calles fracture of left foot. Patient is AAO x 3 and NAD, resting comfortably in bed. Denies any acute overnight events. States that pain is improved over yesterday. Denies any recent N/V/F/C/CP/SOB/D Objective - Vital Signs/Intake and Output Vital Signs (last 24 hours): Temp Pulse Resp BP Pulse Ox 98.1 F 116 H 20 88/52 L 97 07/25/17 08:32 07/25/17 08:32 07/25/17 08:32 07/25/17 03:00 07/25/17 08:32 Intake and Output: 07/25/17 07/25/17 06:59 18:59 Intake Total 240 2600 Output Total 0 300 Balance 240 2300 - Medications Medications: Current Medications Acetaminophen (Tylenol 325mg Tab) 650 mg PO Q6H PRN PRN Reason: Fever >100.4 F Cinacalcet (Sensipar) 30 mg PO DAILY [facility] Last Admin: 07/25/17 12:38 Dose: 30 mg Sodium Chloride (Sodium Chloride 0.9%) 500 mls @ 40 mls/hr IV .[id number] [facility] Last Admin: 07/24/17 23:12 Dose: 40 mls/hr Piperacillin Sod/Tazobactam Sod (Zosyn 2.25 Gm In 0.9% 100 Ml) 2.25 gm in 100 mls @ 100 mls/hr IVPB Q8 [facility] PRN Reason: Protocol Stop: 08/01/17 06:01 Last Admin: 07/25/17 13:52 Dose: 100 mls/hr Metoprolol Succinate (Toprol Xl) 50 mg PO DAILY [facility] Last Admin: 07/25/17 11:05 Dose: Not Given Morphine Sulfate (Morphine) 2 mg IVP Q4H PRN PRN Reason: Pain, moderate (4-7) Last Admin: 07/25/17 12:38 Dose: 2 mg Sevelamer Carbonate ([Renvela]) 4 tab PO ACTID [facility] Last Admin: 07/25/17 11:44 Dose: Not Given Ondansetron HCl (Zofran Inj) 4 mg IVP Q6H PRN PRN Reason: Nausea/Vomiting Tramadol/Acetaminophen (Ultracet 37.5/325 Mg) 1 tab PO Q6H PRN PRN Reason: Pain, Mild (1-3) - Labs Labs: 07/25/17 04:35 07/25/17 04:35 PT 120.0 SECONDS (9.4-12.5) H 07/25/17 04:35 INR 10.04 (0.93-1.08) H* 07/25/17 04:35 APTT 63.1 Seconds (25.1-36.5) H 07/24/17 09:15 - Constitutional Appears: Well, Non-toxic, No Acute Distress - Head Exam Head Exam: ATRAUMATIC, NORMOCEPHALIC - Extremities Exam Additional comments: B/l LE focused exam Vasc: DP/PT pulses faintly palpable to b/l LE. CFT < 3 seconds to right digits; > 3 seconds to left digits secondary to 1+ pitting edema of entire LLE. Skin temperature warm to warm WNL of left LE and increased to RLE, improved over yesterday Neuro: Epicritic and protective sensation grossly intact b/l Derm: RLE - Approximately 0.2 cm x 0.2 cm x 0.1 cm ulceration noted to right lateral heel. Base mostly fibrotic. No erythema, malodor, drainage, probe to bone, tracking, tunneling or undermining noted. No other clinical signs of infection noted LLE- Approximately 2 cm x 1 cm bullae noted to left dorsal foot, most likely from surgical shoe that patient has been wearing. Hallux nail plate noted to be missing from digit with underlying laceration. Dried blood noted to base. MSK: Diffuse pain noted to left foot and leg with palpation, especially at site of blister and left hallux, improved since yesterday. No POP to right foot ulceration. No other gross deformities noted b/l - Neurological Exam Neurological Exam: Alert, Awake, Oriented x3 - Psychiatric Exam Psychiatric exam: Normal Affect, Normal Mood Assessment and Plan - Assessment and Plan (Free Text) Assessment: 61F seen at bedside for wound to right lateral heel, left hallux wound and left foot blister as well as chronic Calles fracture of left foot Plan: Patient seen and evaluated with attending Dr. Saunders Afebrile WBC 16.7 from 18.6 yesterday Continue IV abx and pain meds Wound cx left hallux prelim - GNR LE arterial duplex: 1. Limited exam due to calcified vessels 2. B/l SFA disease 3. B/l popliteal, trifurcation, and/or tibial disease 4. If clinically indicated , further evaluation with MRA with gadolinium runoff, CTA runoff or conventional arteriogram can be considered LE venous duplex: No sonographic evidence of DVT L foot xray: There is a well defined cortical defect in the proximal fifth metatarsal that is most consistent with an old fracture. There is also periosteal thickening in the third and fourth metatarsal F/u MRI results PT ordered with walker for gait training NWB to left foot B/l wounds dressed with hydrogel, xeroform, DSD No plan for surgical intervention at this time Podiatry will continue to follow while patient in house <Mukesh Saunders - Last Filed: 07/25/17 15:37> Objective - Vital Signs/Intake and Output Vital Signs (last 24 hours): Temp Pulse Resp BP Pulse Ox 98.1 F 116 H 20 88/52 L 97 07/25/17 08:32 07/25/17 08:32 07/25/17 08:32 07/25/17 03:00 07/25/17 08:32 Intake and Output: 07/25/17 07/25/17 06:59 18:59 Intake Total 240 2600 Output Total 0 300 Balance 240 2300 - Medications Medications: Current Medications Acetaminophen (Tylenol 325mg Tab) 650 mg PO Q6H PRN PRN Reason: Fever >100.4 F Cinacalcet (Sensipar) 30 mg PO DAILY [facility] Last Admin: 07/25/17 12:38 Dose: 30 mg Sodium Chloride (Sodium Chloride 0.9%) 500 mls @ 40 mls/hr IV .[id number] [facility] Last Admin: 07/24/17 23:12 Dose: 40 mls/hr Piperacillin Sod/Tazobactam Sod (Zosyn 2.25 Gm In 0.9% 100 Ml) 2.25 gm in 100 mls @ 100 mls/hr IVPB Q8 FINN PRN Reason: Protocol Stop: 08/01/17 06:01 Last Admin: 07/25/17 13:52 Dose: 100 mls/hr Metoprolol Succinate (Toprol Xl) 50 mg PO DAILY [facility] Last Admin: 07/25/17 11:05 Dose: Not Given Morphine Sulfate (Morphine) 2 mg IVP Q4H PRN PRN Reason: Pain, moderate (4-7) Last Admin: 07/25/17 12:38 Dose: 2 mg Sevelamer Carbonate ([Renvela]) 4 tab PO ACTID [facility] Last Admin: 07/25/17 11:44 Dose: Not Given Ondansetron HCl (Zofran Inj) 4 mg IVP Q6H PRN PRN Reason: Nausea/Vomiting Tramadol/Acetaminophen (Ultracet 37.5/325 Mg) 1 tab PO Q6H PRN PRN Reason: Pain, Mild (1-3) - Labs Labs: 07/25/17 04:35 07/25/17 04:35 PT 120.0 SECONDS (9.4-12.5) H 07/25/17 04:35 INR 10.04 (0.93-1.08) H* 07/25/17 04:35 APTT 63.1 Seconds (25.1-36.5) H 07/24/17 09:15 Attending/Attestation - Attestation I have personally seen and examined this patient.: Yes I have fully participated in the care of the patient.: Yes I have reviewed all pertinent clinical information, including history, physical exam and plan: Yes
--- NOTE | 2017-07-25 19:03 | CARD ---
APPROVED REPORT EXAM: Two-dimensional and M-mode echocardiogram with Doppler and color Doppler. INDICATION LV Function:SystolicDiastolic 2D DIMENSIONS Left Atrium (2D)3.7 (1.6-4.0cm)IVSd1.5 (0.7-1.1cm) LVDd3.3 (3.9-5.9cm)PWd1.4 (0.7-1.1cm) LVDs2.1 (2.5-4.0cm)FS (%) 37.3 % LVEF (%)68.5 (>50%) M-Mode DIMENSIONS Aortic Root2.70 (2.2-3.7cm)Aortic Cusp Exc.1.70 (1.5-2.0cm) Aortic Valve AoV Peak [id number]/Caryn Peak GR.4mmHg Mitral Valve E/A ratio0.0 TDI E/Lateral E'0.0E/Medial E'0.0 Tricuspid Valve TR Peak [id number] [id number] Peak Gr.29mmHg [id number] LEFT VENTRICLE The left ventricle is normal size. There is mild concentric left ventricular hypertrophy. The left ventricular function is normal. The left ventricular ejection fraction is within the normal range. Paradoxic septum consistent right ventricle volume overload. RIGHT VENTRICLE The right ventricle is moderately dilated. Systolic function is moderately reduced. ATRIA The left atrium size is normal. The right atrium is moderately dilated. The interatrial septum is intact with no evidence for an atrial septal defect. AORTIC VALVE The aortic valve is normal in structure. No aortic regurgitation is present. There is no aortic valvular stenosis. MITRAL VALVE The mitral valve is normal in structure. Mitral regurgitation is trace. TRICUSPID VALVE The tricuspid valve leaflets are thickened , but open well. There is severe tricuspid regurgitation. There is moderate pulmonary hypertension. GREAT VESSELS The aortic root is normal in size. Dilated IVC with poor inspiration collapse is consistent with elevated right atrial pressure. PERICARDIAL EFFUSION There is no pleural effusion. There is no pericardial effusion. <Conclusion> Dilated RV and RA. Normal LV size and systolic function. Paradoxical septal motion consistent with RV volume overload. Mild concentric LVH. Severe tricuspid regurgitation. Moderate pulmonary hypertension.
--- NOTE | 2017-07-25 21:15 | PN ---
DATE: 07/25/2017 SUBJECTIVE: The patient is currently seen lying comfortable in bed on 3R. She has bandages over both feet. She is being treated for a left foot blister and ulcer. She is going to be going down for an MRI to rule out osteomyelitis. She does have an old left foot fracture. The patient had an uneventful dialysis yesterday and is scheduled for dialysis tomorrow. MEDICATIONS: List reviewed. The patient is on morphine p.r.n., Sensipar, Renvela, normal saline which will be discontinued, Toprol, Tylenol p.r.n., Ultracet, Zofran p.r.n., and Zosyn. PHYSICAL EXAMINATION: INTAKE/OUTPUT: Intake 2600, output 300 mL urine plus dialysis. VITAL SIGNS: Blood pressure is 88/52, pulse 116, temperature is 98.1, respiratory rate is 20. Oxygen saturation is 97%. HEENT: Shows her to be normocephalic, atraumatic. Conjunctivae are pink. Sclerae are nonicteric. NECK: Supple. No neck vein distention. CHEST: Clear to auscultation and percussion with no rales, rhonchi, or wheezing. CARDIOVASCULAR: Shows an irregular S1, S2. No S3. No S4. No audible murmurs. No rub. ABDOMEN: Soft. Bowel sounds normal. No rebound. No guarding. No masses. EXTREMITIES: Show bilateral dressings over her feet. No lower extremity edema. Diminished lower extremity pulses bilaterally. Positive left upper extremity AV fistula. Positive thrill. Positive bruit. LABORATORY DATA AND IMAGING STUDIES: CBC: White blood cell count down to 16.7 from 18.6, hemoglobin 14 with a platelet count of 109,000. Coag showed a PT of 120 with an INR of 10.04. Coumadin is on hold. PTT was 63.1. Chemistries show a potassium which has fallen to 4.6 from 6.3, BUN 26 with creatinine of 4.8 on the day post dialysis. Last glucose level was 90. Calcium 8.5, phosphorus 4.4 with a magnesium level of 2.1. Liver enzymes are normal. Mild elevation of alkaline phosphatase of 186. Albumin level is 3.6. Microbiology: Toe culture positive for gram-negative rods. Blood cultures are negative at 24 hours. MRI of her left foot is pending to rule out osteomyelitis. Echocardiogram was done, results are pending. ASSESSMENT: 1. End-stage renal disease with hyperkalemia. The patient will continue Monday, Monday, and Monday dialysis. The patient will eventually return back to [facility] in [place] for outpatient dialysis. 2. History of blister an ulcer of her left foot. MRI is pending to rule out osteomyelitis. She remains on IV antibiotic therapy. Local wound care through podiatry. 3. History of multiple myeloma, in remission. 4. History of atrial fibrillation. The patient had been on Coumadin therapy. This is now on hold because of an elevated PT/INR. 5. History of recent weight loss and poor appetite. Abdominopelvic CT scan is negative for malignancy. 6. History of peripheral vascular disease of lower extremity, stable. 7. Secondary hyperparathyroidism. Phosphorus level is controlled. The patient will continue binder therapy and Sensipar along with vitamin D supplements. PLAN: 1. Continue Monday, Monday, and Monday dialysis. 2. Continue local podiatric wound care. 3. Await results of MRI of her left foot. 4. May discontinue IV fluid hydration in light of the fact that she has end-stage renal disease. Her blood pressure in present range is close to her baseline levels. Bharathi Sloan MD
[2017-07-26] MEDS: Digoxin 500 mcg/2ml (0.5 mg/2ml) Inj IVP ONE ×2 (02:30→03:26)
[2017-07-26] MEDS ORDERED: Digoxin 500 mcg/2ml (0.5 mg/2ml) Inj IVP ONE ×2 (03:13→18:00)
[2017-07-26] MEDS: Piperacillin/Tazobact 2.25gm 2.25 GM/100 ML BAG IVPB SCH (05:35)
[2017-07-26] MEDS: SEVELAMER CARBONATE PO SCH ×3 (07:47→15:59)
[2017-07-26] MEDS: Metoprolol Succinate 50 mg XL Tab PO SCH (09:04)
--- NOTE | 2017-07-26 11:47 | MRI ---
PROCEDURE: MRI of the left foot without contrast HISTORY: r/o OM left hallux COMPARISON: Plain film dated 07/24/2017 TECHNIQUE: MRI of the left foot was performed in multiple planes using multiple pulse sequences. FINDINGS: There is some increased marrow signal intensity in all of the toes on fat-suppressed T2 imaging. It is unlikely that this represents osteomyelitis in each of the toes and is most likely artifactual. There is slightly more marrow edema in the 1st distal phalanx which correlates with the clinical history of suspected osteomyelitis. There also appears to be a cortical defect as seen on image 10 series 3. There is a chronic nonunion transverse fracture of the proximal 5th metatarsal seen best on image 21 series 2. There is diffuse subcutaneous edema over the dorsum of the foot IMPRESSION: Probable osteomyelitis of the 1st distal phalanx. See comments
[2017-07-26] MEDS: Morphine 2 mg/2 mL syringe IVP PRN (12:01)
[2017-07-26] MEDS: Cefepime 1gm in NS 100ml 1 GM/100 ML BAG IVPB SCH (13:05)
[2017-07-26] MEDS ORDERED: DiphenhydrAMINE 50 mg/ml Inj IVP ONE (14:22)
[2017-07-26 14:38] LABS: BASO # 0.02 K/mm3 (0.0-2.0); BASO % 0.1 % (0.0-3.0); EOS # 0.1 (0.0-0.7); EOS % 0.9 % (1.5-5.0); GRAN # 13.41 (1.4-6.5); GRAN % 90.4 % (50.0-68.0); HEMOGLOBIN 14.8 g/dL (12.0-16.0); LYMPH # 0.6 (1.2-3.4); LYMPH % 4.1 % (22.0-35.0); MEAN CELL VOLUME 90.6 fl (80.0-105.0); MEAN CORPUSCULAR HEMOGLOBIN 30.8 pg (25.0-35.0); MEAN PLATELET VOLUME 11.4 fl (7.0-11.0); MONO # 0.7 (0.1-0.6); MONO % 4.5 % (1.0-6.0); RBC 4.8 10^6/uL (3.5-6.1); RED CELL DISTRIBUTION WIDTH 15.2 % (11.5-14.5); WHITE BLOOD COUNT 14.8 10^3/ul (4.5-11.0)
[2017-07-26 14:52] LABS: ALB/GLOB RATIO 0.9 (1.1-1.8); ALBUMIN 3.3 g/dL (3.0-4.8); CALCIUM 8.5 mg/dL (8.4-10.5)
[2017-07-26 15:02] LABS: INR 1.98 (0.93-1.08); PROTHROMBIN TIME 22.9 SECONDS (9.4-12.5)
--- NOTE | 2017-07-26 16:34 | PN ---
DATE: 07/26/2017 SUBJECTIVE: The patient is 61 years old, seen and examined, was admitted because of worsening of her left foot wound. Just went for MRI; when came back, she is complaining of pain in her foot. She seems to be tachycardic. No chest pain. Mild shortness of breath. OBJECTIVE: VITAL SIGNS: She is afebrile, pulse 132, respirations 18, blood pressure 80/51. LUNGS: Bilateral fair airflow. No rhonchi or crackle. HEART: S1 and S2, audible. ABDOMEN: Soft, nontender. No rebound, no guarding. NEUROLOGIC: The patient is awake, alert, oriented, communicative. LABORATORY EXAM: Troponin is 0.18. Toe is having Serratia marcescens. ASSESSMENT: 1. Left foot ulcer. 2. Peripheral vascular disease. 3. History of atrial fibrillation. 4. Leukocytosis. 5. Hypotension. 6. Chronic atrial fibrillation. 7. Supra-therapeutic Coumadin level. PLAN: We will start her on atenolol. Get Cardiology consult by Dr. Martin and start her on baby aspirin and start her on midodrine since she has been running hypotensive. We will give her extra dose of metoprolol. We will follow up MRI. Jessica Ambrosio MD
--- NOTE | 2017-07-26 16:44 | PN ---
DATE: 07/26/2017 SUBJECTIVE: The patient is seen in the dialysis unit. She is awake, she is alert. She is in better spirits. She complains of some pain in her foot. PHYSICAL EXAMINATION: GENERAL: Elderly lady lying in bed in the dialysis unit. VITAL SIGNS: Blood pressure 80/51, heart rate 118, respiratory rate 18, temperature 97.8. HEENT: Normocephalic, atraumatic, positive pallor. NECK: Supple, no JVD. LUNGS: Bilateral equal air entry, bilateral equal expansion, no rales. CARDIAC: S1 and S2, regular rate and rhythm, no murmur, no rub. ABDOMEN: Obese, distended, soft, bowel sounds present. EXTREMITIES: Dressing of the left foot. INTAKE AND OUTPUT: Not charted. LABORATORY DATA: WBC 14.8, hemoglobin 14.8, hematocrit 43.5, platelets 112. Sodium 139, potassium 4.6, chloride 97, CO2 of 23, BUN 45, creatinine 6.1, glucose 77, calcium 8.5, phosphorus 5.3, magnesium 2. Total bilirubin 1.7. Troponin 0.1, second set 0.18. Albumin 3.3. Wound cultures, Serratia. Blood cultures, no growth. MRI of the foot: Probable osteomyelitis of the first distal pharynx, chronic nonunion transverse fracture of the proximal fifth metatarsal. CURRENT MEDICATIONS: Ecotrin, cefepime 1 g daily, morphine, ProAmatine, Sensipar 30, Renvela, Toprol-XL, Tylenol, Ultram, verapamil, and Zofran. ASSESSMENT: 1. Hyperkalemia, resolved. 2. Osteomyelitis of the distal first phalanx. 3. Non-healed fracture of the fifth metatarsal. 4. Atrial fibrillation. 5. End-stage renal disease. 6. Multiple myeloma, in remission. 7. Peripheral vascular disease. 8. Secondary hyperparathyroidism. PLAN: 1. Continue dialysis, stable treatment today. 2. Local wound care with podiatry. 3. Duration of antibiotics to be determined by ID. 4. Continue phosphate binder and Sensipar. 5. Outpatient evaluation. Breana Schrader MD [facility] # [id number]
--- NOTE | 2017-07-26 16:57 | CP.PCM.PN ---
Subjective - Date & Time of Evaluation Date of Evaluation: 07/26/17 Time of Evaluation: 11:45 - Subjective Subjective: Still with some pain in the left foot, no fevers. Objective - Vital Signs/Intake and Output Vital Signs (last 24 hours): Temp Pulse Resp BP Pulse Ox 97.8 F 125 H 18 80/51 L 95 07/26/17 06:00 07/26/17 10:00 07/26/17 06:00 07/26/17 06:00 07/26/17 06:00 Intake and Output: 07/26/17 07/26/17 06:59 18:59 Intake Total 560 240 Balance 560 240 - Medications Medications: Current Medications Acetaminophen (Tylenol 325mg Tab) 650 mg PO Q6H PRN PRN Reason: Fever >100.4 F Cinacalcet (Sensipar) 30 mg PO DAILY [facility] Last Admin: 07/25/17 12:38 Dose: 30 mg Cefepime HCl (Maxipime 1gm) 1 gm in 100 mls @ 100 mls/hr IVPB Q24H [facility] PRN Reason: Protocol Metoprolol Succinate (Toprol Xl) 50 mg PO DAILY [facility] Last Admin: 07/26/17 09:04 Dose: Not Given Morphine Sulfate (Morphine) 2 mg IVP Q4H PRN PRN Reason: Pain, moderate (4-7) Last Admin: 07/25/17 12:38 Dose: 2 mg Sevelamer Carbonate ([Renvela]) 4 tab PO ACTID [facility] Last Admin: 07/26/17 11:32 Dose: Not Given Ondansetron HCl (Zofran Inj) 4 mg IVP Q6H PRN PRN Reason: Nausea/Vomiting Tramadol/Acetaminophen (Ultracet 37.5/325 Mg) 1 tab PO Q6H PRN PRN Reason: Pain, Mild (1-3) Verapamil HCl (Verapamil Inj) 2.5 mg IVP Q6 PRN PRN Reason: Heart rate - Labs Labs: 07/25/17 04:35 07/25/17 04:35 PT 120.0 SECONDS (9.4-12.5) H 07/25/17 04:35 INR 10.04 (0.93-1.08) H* 07/25/17 04:35 APTT 63.1 Seconds (25.1-36.5) H 07/24/17 09:15 - Constitutional Appears: Non-toxic, Chronically Ill - Head Exam Head Exam: NORMAL INSPECTION - Respiratory Exam Respiratory Exam: Decreased Breath Sounds - Cardiovascular Exam Cardiovascular Exam: +S1, +S2 - GI/Abdominal Exam GI & Abdominal Exam: Soft. absent: Tenderness Assessment and Plan - Assessment and Plan (Free Text) Plan: Assessment Consider left hallux infected ulcer with skin and skin structure infection with osteomyelitis, growing Serratia from the wound ESRD on HD multiple myeloma S/P chemotherapy and radiation therapy atrial fibrillation on anticoagulation Plan continue cefepime; reviewed MRI of the foot- would recommend 4-6 weeks of antibiotics with weekly ESR, CRP, CBC, CMP while on antibiotics with outpatient follow up with Podiatry
[2017-07-27] MEDS ORDERED: Digoxin 500 mcg/2ml (0.5 mg/2ml) Inj IVP ONE (03:45)
--- NOTE | 2017-07-27 03:48 | CP.PCM.PN ---
Subjective - Date & Time of Evaluation Date of Evaluation: 07/27/17 Time of Evaluation: 03:45 Objective - Vital Signs/Intake and Output Vital Signs (last 24 hours): Temp Pulse Resp BP Pulse Ox 97.8 F 140 H 18 83/51 L 95 07/26/17 06:00 07/27/17 02:00 07/26/17 06:00 07/26/17 23:28 07/26/17 06:00 Intake and Output: 07/26/17 07/27/17 18:59 06:59 Intake Total 840 360 Output Total 0 Balance 840 360 - Medications Medications: Current Medications Acetaminophen (Tylenol 325mg Tab) 650 mg PO Q6H PRN PRN Reason: Fever >100.4 F Aspirin (Ecotrin) 81 mg PO DAILY [facility] Last Admin: 07/26/17 18:27 Dose: 81 mg Cinacalcet (Sensipar) 30 mg PO DAILY [facility] Last Admin: 07/26/17 18:26 Dose: 30 mg Digoxin (Lanoxin) 0.25 mg IVP ONCE ONE Stop: 07/27/17 03:46 Cefepime HCl (Maxipime 1gm) 1 gm in 100 mls @ 100 mls/hr IVPB Q24H [facility] PRN Reason: Protocol Last Admin: 07/26/17 13:05 Dose: Not Given Midodrine (Proamatine) 5 mg PO TID [facility] Last Admin: 07/26/17 18:27 Dose: 5 mg Morphine Sulfate (Morphine) 2 mg IVP Q4H PRN PRN Reason: Pain, moderate (4-7) Last Admin: 07/26/17 12:01 Dose: 2 mg Sevelamer Carbonate ([Renvela]) 4 tab PO ACTID [facility] Last Admin: 07/26/17 15:59 Dose: Not Given Ondansetron HCl (Zofran Inj) 4 mg IVP Q6H PRN PRN Reason: Nausea/Vomiting Tramadol/Acetaminophen (Ultracet 37.5/325 Mg) 1 tab PO Q6H PRN PRN Reason: Pain, Mild (1-3) Verapamil HCl (Verapamil Inj) 2.5 mg IVP Q6 PRN PRN Reason: Heart rate Last Admin: 07/26/17 23:28 Dose: 2.5 mg Verapamil HCl (Calan Tab) 40 mg PO TID [facility] Last Admin: 07/26/17 18:26 Dose: 40 mg - Labs Labs: 07/26/17 14:10 07/26/17 14:10 PT 22.9 SECONDS (9.4-12.5) H 07/26/17 14:10 INR 1.98 (0.93-1.08) H 07/26/17 14:10 APTT 63.1 Seconds (25.1-36.5) H 07/24/17 09:15
--- NOTE | 2017-07-27 03:52 | CON ---
DATE: REASON FOR CONSULTATION: Cardiac evaluation, history of chronic atrial fibrillation, now patient is in AFib with rapid ventricular rate, sepsis. BRIEF CLINICAL HISTORY: This is a 61-year-old female with past medical history significant for end-stage renal disease on dialysis, history of chronic atrial fibrillation on anticoagulation, history of multiple myeloma on chemotherapy leading to kidney failure on dialysis. Patient used to be in [place] and recently, a year or two years ago, moved to [place]. 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 Denies any chest pain, shortness of breath, any palpitation. Admitted with cellulitis of lower extremity. Being evaluated by intervention radiologist, and medical treatment recommended because of small vessel disease of the foot. Was this morning with AFib with rapid ventricular rate, heart rate 110, and Cardiology consult was called. Patient denies any chest pain, shortness of breath, or any palpitation. PAST MEDICAL HISTORY: Significant for chronic atrial fibrillation for more than 5 years on anticoagulation, history of end-stage renal disease on 2001 secondary to multiple myeloma, history of gangrenous cystitis, history of peripheral arterial disease. SOCIAL HISTORY: Denies any smoking. Denies any history of alcohol abuse. CURRENT MEDICATIONS: Patient is taking tramadol, Coumadin 2 mg daily, Renagel 4 tablets daily, metoprolol 50 mg daily, Sensipar 30 mg daily, and Fosamax 70 mg once a week. ALLERGIES: TO IV CONTRAST, GETS PEELING OF THE SKIN OF THE HAND. REVIEW OF SYSTEMS: Rest of the review of systems as per HPI. PHYSICAL EXAMINATION: As follows; VITAL SIGNS: Height of the patient 5 feet 8 inch, weight of the patient is 149, body mass index 24 kg/m2. Rest of the examination as follows; temperature afebrile, heart rate 130, blood pressure 80/51. HEENT: PERRLA. Extraocular muscles intact. NECK: Supple. No carotid bruit or thyromegaly. CHEST: Clear to auscultation. HEART: S1 and S2 regular. ABDOMEN: Soft. EXTREMITIES: Clubbing and cyanosis negative. LABORATORY DATA: Blood workup as follows; WBC 14.8, hemoglobin 14.8, hematocrit 43.5, platelet count 112. Chemistry shows sodium 139, potassium 4.6, chloride 97, carbon dioxide 23, anion gap of 24, BUN 45, creatinine 6.1. Troponin 0.1. IMPRESSION: History of chronic atrial fibrillation on anticoagulation, admitting INR was supratherapeutic, INR was 10.4, now it is 1.98, history of peripheral arterial disease, history of multiple myeloma, end-stage renal disease secondary to multiple myeloma, on dialysis [id number] since 2001, history of multiple myeloma and chemotherapy, according to patient leads to the kidney failure. Patient being followed by Dr. Jared Villalta. Called Dr. Jared Villalta to see the patient. He wanted me to see the patient till the patient gets discharged. He will follow as outpatient. RECOMMENDATION: We will resume back anticoagulation because of INR subtherapeutic. Verapamil 2.5 mg every 6 hours p.r.n. for heart rate more than 130. We will start low dose of verapamil as well if patient tolerated. We will follow with you. We will get the lipid profile, TSH, hemoglobin A1c, and review if echo is done. If the echo is not done in the last 6 months, we will do the echo. Thank you Dr. Ambrosio, for providing us the opportunity in taking care of patient, Ada Lang. Mile Martin MD
[2017-07-27] MEDS ORDERED: Digoxin 500 mcg/2ml (0.5 mg/2ml) Inj ONE (03:57)
[2017-07-27 04:21] VITALS: PULSE 144
[2017-07-27] MEDS ORDERED: Sodium Chloride 0.9% 1,000 ML IV STA (04:47)
[2017-07-27 07:12] LABS: BASO # 0.02 K/mm3 (0.0-2.0); BASO % 0.2 % (0.0-3.0); EOS # 0.3 (0.0-0.7); EOS % 2.2 % (1.5-5.0); GRAN # 10.94 (1.4-6.5); GRAN % 87.9 % (50.0-68.0); HEMOGLOBIN 16.2 g/dL (12.0-16.0); LYMPH # 0.7 (1.2-3.4); LYMPH % 5.4 % (22.0-35.0); MEAN CELL VOLUME 91.8 fl (80.0-105.0); MEAN CORPUSCULAR HEMOGLOBIN 30.2 pg (25.0-35.0); MEAN CORPUSCULAR HGB CONC 32.9 g/dl (31.0-37.0); MEAN PLATELET VOLUME 11.6 fl (7.0-11.0); MONO # 0.5 (0.1-0.6); MONO % 4.3 % (1.0-6.0); RBC 5.36 10^6/uL (3.5-6.1); RED CELL DISTRIBUTION WIDTH 15.6 % (11.5-14.5); WHITE BLOOD COUNT 12.4 10^3/ul (4.5-11.0)
[2017-07-27 07:24] LABS: INR 2.43 (0.93-1.08); PROTHROMBIN TIME 28.5 SECONDS (9.4-12.5)
[2017-07-27 07:27] LABS: ALBUMIN 3.3 g/dL (3.0-4.8); ALT/SGPT 88 U/L (7-56); AST/SGOT 169 U/L (14-36); BLOOD UREA NITROGEN 33 mg/dL (7-21); CALCIUM 8.5 mg/dL (8.4-10.5); GFR AFRICAN-AMERICAN 12; GFR NON-AFRICAN AMERICAN 10; HDL CHOLESTEROL 47 mg/dL (29-60)
[2017-07-27] MEDS: SEVELAMER CARBONATE PO SCH ×3 (07:48→16:31)
--- NOTE | 2017-07-27 08:21 | CP.PCM.PN ---
Subjective - Date & Time of Evaluation Date of Evaluation: 07/27/17 Time of Evaluation: 06:35 - Subjective Subjective: Awake,lying in bed, denies shortness of breath,denies chest pain, per RN had rapid Afib (telemetry) 140's and 150's. Reason for consultation and follow up: Cardiac evaluation, Rapid atrial fibrillation, on coumadin,history of multiple myeloma s/p chemo/radiation, gangrenous cystitis, ESRD on HD,left foot ulcer Seen and examined by me and Dr. Martin Objective - Vital Signs/Intake and Output Vital Signs (last 24 hours): Temp Pulse Resp BP Pulse Ox 98.0 F 100 H 20 81/45 L 98 07/27/17 06:00 07/27/17 06:00 07/27/17 06:00 07/27/17 06:00 07/27/17 06:00 Intake and Output: 07/27/17 07/27/17 06:59 18:59 Intake Total 480 Output Total 2 Balance 478 - Medications Medications: Current Medications Acetaminophen (Tylenol 325mg Tab) 650 mg PO Q6H PRN PRN Reason: Fever >100.4 F Aspirin (Ecotrin) 81 mg PO DAILY [facility] Last Admin: 07/26/17 18:27 Dose: 81 mg Cinacalcet (Sensipar) 30 mg PO DAILY [facility] Last Admin: 07/26/17 18:26 Dose: 30 mg Cefepime HCl (Maxipime 1gm) 1 gm in 100 mls @ 100 mls/hr IVPB Q24H [facility] PRN Reason: Protocol Last Admin: 07/26/17 13:05 Dose: Not Given Midodrine (Proamatine) 5 mg PO TID [facility] Last Admin: 07/26/17 18:27 Dose: 5 mg Morphine Sulfate (Morphine) 2 mg IVP Q4H PRN PRN Reason: Pain, moderate (4-7) Last Admin: 07/26/17 12:01 Dose: 2 mg Sevelamer Carbonate ([Renvela]) 4 tab PO ACTID [facility] Last Admin: 07/27/17 07:48 Dose: Not Given Ondansetron HCl (Zofran Inj) 4 mg IVP Q6H PRN PRN Reason: Nausea/Vomiting Tramadol/Acetaminophen (Ultracet 37.5/325 Mg) 1 tab PO Q6H PRN PRN Reason: Pain, Mild (1-3) Verapamil HCl (Verapamil Inj) 2.5 mg IVP Q6 PRN PRN Reason: Heart rate Last Admin: 07/26/17 23:28 Dose: 2.5 mg Verapamil HCl (Calan Tab) 40 mg PO TID [facility] Last Admin: 07/26/17 18:26 Dose: 40 mg - Labs Labs: 07/27/17 06:00 07/27/17 06:00 PT 28.5 SECONDS (9.4-12.5) H 07/27/17 06:00 INR 2.43 (0.93-1.08) H 07/27/17 06:00 APTT 63.1 Seconds (25.1-36.5) H 07/24/17 09:15 - Constitutional Appears: No Acute Distress - Head Exam Head Exam: NORMOCEPHALIC - Eye Exam Eye Exam: Normal appearance - ENT Exam ENT Exam: Mucous Membranes Moist - Respiratory Exam Respiratory Exam: Decreased Breath Sounds, NORMAL BREATHING PATTERN - Cardiovascular Exam Cardiovascular Exam: Irregular Rhythm, +S1, +S2 Additional comments: Telemetry 100-140's Afib - GI/Abdominal Exam GI & Abdominal Exam: Soft, Normal Bowel Sounds - Extremities Exam Additional comments: left foot ulcer - Neurological Exam Neurological Exam: Alert, Awake, Oriented x3 - Psychiatric Exam Psychiatric exam: Normal Affect, Normal Mood - Skin Skin Exam: Normal Color, Warm Assessment and Plan - Assessment and Plan (Free Text) Assessment: A 61 year old female who came in to the ER due to left foot ulcer causin pain and unable to walk.Culture of wound positive for serratia. She had episode of tachycardia/rapid afib thus cardiolofy consulted. History of atrial fibrillation and on coumadin, multiple myeloma s/p chemo/radiation, gangrenous cystitis, ESRD on HD. Plan: Had rapid Afib last night about 140's. PRN Verapamil given and digoxin 0.25 mg given, heart rate holding on about 110-120's Will start Digoxin 0.125 mg 3x a week (MWF) Can not increase Verapamil as she has borderline low BP Antibiotics for foot ulcer, positive for serratia MRI of left foot suggest osteomyelitis Continue current treatment Continue current medications Will follow up Plan and treatment discussed with Dr. Martin
[2017-07-27 09:04] LABS: LDL CHOLESTEROL < 30 mg/dL (0-129)
--- NOTE | 2017-07-27 09:04 | CP.PCM.PN ---
<Tab Seo - Last Filed: 07/27/17 08:50> Subjective - Date & Time of Evaluation Date of Evaluation: 07/27/17 Time of Evaluation: 08:50 - Subjective Subjective: Podiatry Progress Note for Attending, Dr. Love 61F seen at bedside for wound to right lateral heel, left hallux wound and left foot blister as well as chronic Calles fracture of left foot. Patient is AAO x 3 and NAD at time of visit. Patient states that she underwent dialysis yesterday without incident. Denies any acute overnight events or new pedal complaints. States that she is still having pain at the sight of the blister to her left foot. Denies any recent N/V/F/C/CP/SOB/D Objective - Vital Signs/Intake and Output Vital Signs (last 24 hours): Temp Pulse Resp BP Pulse Ox 98.0 F 100 H 20 81/45 L 98 07/27/17 06:00 07/27/17 06:00 07/27/17 06:00 07/27/17 06:00 07/27/17 06:00 Intake and Output: 07/27/17 07/27/17 06:59 18:59 Intake Total 480 Output Total 2 Balance 478 - Medications Medications: Current Medications Acetaminophen (Tylenol 325mg Tab) 650 mg PO Q6H PRN PRN Reason: Fever >100.4 F Aspirin (Ecotrin) 81 mg PO DAILY [facility] Last Admin: 07/26/17 18:27 Dose: 81 mg Cinacalcet (Sensipar) 30 mg PO DAILY [facility] Last Admin: 07/26/17 18:26 Dose: 30 mg Digoxin (Digoxin) 0.125 mg PO 1400 [facility] Cefepime HCl (Maxipime 1gm) 1 gm in 100 mls @ 100 mls/hr IVPB Q24H [facility] PRN Reason: Protocol Last Admin: 07/26/17 13:05 Dose: Not Given Midodrine (Proamatine) 5 mg PO TID [facility] Last Admin: 07/26/17 18:27 Dose: 5 mg Morphine Sulfate (Morphine) 2 mg IVP Q4H PRN PRN Reason: Pain, moderate (4-7) Last Admin: 07/26/17 12:01 Dose: 2 mg Sevelamer Carbonate ([Renvela]) 4 tab PO ACTID [facility] Last Admin: 07/27/17 07:48 Dose: Not Given Ondansetron HCl (Zofran Inj) 4 mg IVP Q6H PRN PRN Reason: Nausea/Vomiting Tramadol/Acetaminophen (Ultracet 37.5/325 Mg) 1 tab PO Q6H PRN PRN Reason: Pain, Mild (1-3) Verapamil HCl (Verapamil Inj) 2.5 mg IVP Q6 PRN PRN Reason: Heart rate Last Admin: 07/26/17 23:28 Dose: 2.5 mg Verapamil HCl (Calan Tab) 40 mg PO TID [facility] Last Admin: 07/26/17 18:26 Dose: 40 mg - Labs Labs: 07/27/17 06:00 07/27/17 06:00 PT 28.5 SECONDS (9.4-12.5) H 07/27/17 06:00 INR 2.43 (0.93-1.08) H 07/27/17 06:00 APTT 63.1 Seconds (25.1-36.5) H 07/24/17 09:15 - Constitutional Appears: Well, Non-toxic, No Acute Distress - Head Exam Head Exam: ATRAUMATIC, NORMOCEPHALIC - Extremities Exam Additional comments: B/l LE focused exam Vasc: DP/PT pulses faintly palpable to b/l LE. CFT < 3 seconds to all digits. Improved left foot pedal edema. Skin temperature warm to warm from proximal to distal WNL b/l Neuro: Epicritic and protective sensation grossly intact b/l Derm: RLE - Approximately 0.2 cm x 0.2 cm x 0.1 cm ulceration noted to right lateral heel. Base fibrogranual and improving. No erythema, malodor, drainage, probe to bone, tracking, tunneling or undermining noted. No other clinical signs of infection noted LLE- Approximately 5 cm x 2 cm bullae noted to left dorsal foot, most likely from surgical shoe that patient was wearing. Hallux nail plate noted to be missing from digit with underlying laceration. Dried blood noted to base with no signs of clinical infection including erythema, malodor, or drainage. MSK: Diffuse pain noted to left foot and leg with palpation, especially at site of blister and left hallux, improved since yesterday. No POP to right foot ulceration. No other gross deformities noted b/l - Neurological Exam Neurological Exam: Alert, Awake, Oriented x3 - Psychiatric Exam Psychiatric exam: Normal Affect, Normal Mood Assessment and Plan - Assessment and Plan (Free Text) Assessment: 61F seen at bedside for wound to right lateral heel, left hallux wound and left foot blister as well as chronic Calles fracture of left foot Plan: Patient seen and evaluated with attending Dr. Love Afebrile WBC 12.4 from 14.8 Wound cx left hallux 06/23/17: Serratia Marcescens Continue IV abx per ID Continue pain medication L foot MRI 07/26: Probable OM of first distal phalanx LE arterial duplex: 1. Limited exam due to calcified vessels 2. B/l SFA disease 3. B/l popliteal, trifurcation, and/or tibial disease 4. If clinically indicated , further evaluation with MRA with gadolinium runoff, CTA runoff or conventional arteriogram can be considered LE venous duplex: No sonographic evidence of DVT L foot xray: There is a well defined cortical defect in the proximal fifth metatarsal that is most consistent with an old fracture. There is also periosteal thickening in the third and fourth metatarsal Continue PT L foot blister lanced but not deroofed using pick-ups and suture removal scissors. Approximately 3 cc of serosanguinous drainage expressed. No malodor, no purulence noted Wound sites to both feet dressed with xeroform, DSD Pt stable from podiatric standpoint for DC home on 4-6 weeks IV abx per ID recs , ideally with dialysis Pt to follow up with Dr. Love in wound care center following discharge Podiatry will continue to follow while patient in house <Leesa Love - Last Filed: 07/30/17 20:19> Objective - Vital Signs/Intake and Output Vital Signs (last 24 hours): Temp Pulse Resp BP Pulse Ox 96.0 F L 84 18 87/41 L 89 L 07/28/17 06:00 07/28/17 10:00 07/28/17 06:00 07/28/17 06:00 07/28/17 06:00 - Labs Labs: 07/28/17 06:30 07/28/17 15:10 PT 40.3 SECONDS (9.4-12.5) H 07/28/17 06:30 INR 3.42 (0.93-1.08) H 07/28/17 06:30 APTT 63.1 Seconds (25.1-36.5) H 07/24/17 09:15 Attending/Attestation - Attestation I have personally seen and examined this patient.: Yes I have fully participated in the care of the patient.: Yes I have reviewed all pertinent clinical information, including history, physical exam and plan: Yes
--- NOTE | 2017-07-27 13:06 | CARD ---
APPROVED REPORT EKG Measurement Heart [id number] <Conclusion> Devon Lim. PRWP ASMI, age unknown Low voltage NSSTW changes No change
[2017-07-27] MEDS: Cefepime 1gm in NS 100ml 1 GM/100 ML BAG IVPB SCH (13:13)
[2017-07-27] MEDS: Morphine 2 mg/2 mL syringe IVP PRN (13:54)
--- NOTE | 2017-07-27 16:17 | CP.PCM.PN ---
Subjective - Date & Time of Evaluation Date of Evaluation: 07/27/17 Time of Evaluation: 10:25 - Subjective Subjective: Less pain in the left foot, no fevers. Objective - Vital Signs/Intake and Output Vital Signs (last 24 hours): Temp Pulse Resp BP Pulse Ox 98.0 F 100 H 20 81/45 L 98 07/27/17 06:00 07/27/17 10:00 07/27/17 06:00 07/27/17 06:00 07/27/17 06:00 Intake and Output: 07/27/17 07/27/17 06:59 18:59 Intake Total 480 480 Output Total 2 Balance 478 480 - Medications Medications: Current Medications Acetaminophen (Tylenol 325mg Tab) 650 mg PO Q6H PRN PRN Reason: Fever >100.4 F Aspirin (Ecotrin) 81 mg PO DAILY [facility] Last Admin: 07/27/17 09:55 Dose: 81 mg Cinacalcet (Sensipar) 30 mg PO DAILY [facility] Last Admin: 07/27/17 09:55 Dose: 30 mg Digoxin (Digoxin) 0.125 mg PO 1400 [facility] Cefepime HCl (Maxipime 1gm) 1 gm in 100 mls @ 100 mls/hr IVPB Q24H [facility] PRN Reason: Protocol Last Admin: 07/27/17 13:13 Dose: 100 mls/hr Midodrine (Proamatine) 5 mg PO TID [facility] Last Admin: 07/27/17 13:12 Dose: 5 mg Morphine Sulfate (Morphine) 2 mg IVP Q4H PRN PRN Reason: Pain, moderate (4-7) Last Admin: 07/27/17 13:54 Dose: 2 mg Sevelamer Carbonate ([Renvela]) 4 tab PO ACTID [facility] Last Admin: 07/27/17 11:38 Dose: Not Given Ondansetron HCl (Zofran Inj) 4 mg IVP Q6H PRN PRN Reason: Nausea/Vomiting Tramadol/Acetaminophen (Ultracet 37.5/325 Mg) 1 tab PO Q6H PRN PRN Reason: Pain, Mild (1-3) Verapamil HCl (Verapamil Inj) 2.5 mg IVP Q6 PRN PRN Reason: Heart rate Last Admin: 07/26/17 23:28 Dose: 2.5 mg Verapamil HCl (Calan Tab) 40 mg PO TID [facility] Last Admin: 07/27/17 13:12 Dose: 40 mg - Labs Labs: 07/27/17 06:00 07/27/17 06:00 PT 28.5 SECONDS (9.4-12.5) H 07/27/17 06:00 INR 2.43 (0.93-1.08) H 07/27/17 06:00 APTT 63.1 Seconds (25.1-36.5) H 07/24/17 09:15 - Constitutional Appears: Chronically Ill - Head Exam Head Exam: NORMAL INSPECTION - Respiratory Exam Respiratory Exam: Decreased Breath Sounds - Cardiovascular Exam Cardiovascular Exam: +S1, +S2 - GI/Abdominal Exam GI & Abdominal Exam: Soft. absent: Tenderness - Extremities Exam Additional comments: left foot with dressings in place Assessment and Plan - Assessment and Plan (Free Text) Plan: Assessment Consider left hallux infected ulcer with skin and skin structure infection with osteomyelitis, growing Serratia from the wound ESRD on HD multiple myeloma S/P chemotherapy and radiation therapy atrial fibrillation on anticoagulation Plan continue cefepime; reviewed MRI of the foot- would recommend 4-6 weeks of antibiotics with weekly ESR, CRP, CBC, CMP while on antibiotics with outpatient follow up with Podiatry
--- NOTE | 2017-07-27 16:56 | PN ---
DATE: 07/27/2017 SUBJECTIVE: Patient is 61 years old, seen and examined, lying in bed, seems to be comfortable. Just had dressing down on her left foot, blister was drained by Podiatry team. No nausea or vomiting. PHYSICAL EXAMINATION VITAL SIGNS: She is afebrile, pulse 100, respirations 20, blood pressure . LUNGS: Bilateral fair air flow. No rhonchi or crackle. HEART: S1 and S2 audible. ABDOMEN: Soft, nontender. No rebound, no guarding. NEUROLOGICAL: Patient is awake, alert, oriented, communicative, LABORATORY DATA: WBC 12.4, hemoglobin 16, hematocrit 49, platelet 120. PT 28.5, INR 2.43. Chemistry: Sodium 141, potassium 4.4, chloride 97, CO2 26, BUN 33, creatinine 4.5, blood sugar of 43. Total bilirubin 1.6, AST 169, ALT 88, alkaline phosphatase is 207. TSH is 6.88, CEA is 4.8. Toe culture is positive for Serratia marcescens. Had MRI of the left foot done shows probable osteomyelitis of the first distal phalanx. ASSESSMENT AND PLAN: 1. Left foot diabetic ulcer. 2. Right heel ulcer. 3. Possible osteomyelitis of first distal phalanx. 4. Hypotension. 5. Tachycardia, multifactorial. 6. Chronic atrial fibrillation. PLAN: We will continue verapamil 40 mg 3 times, digoxin 0.125 daily, aspirin 81 daily, Maxipime 1 g every 24 hour. We will continue on midodrine, continue on Sensipar. Probably she is going to need PICC line to complete her course of antibiotics for osteomyelitis. We will discuss with ID. Jessica Ambrosio MD
[2017-07-27] MEDS ORDERED: Sodium Chloride 0.9% 250 ML IV SCH (17:45)
[2017-07-27 19:43] VITALS: RESP 18
[2017-07-27] MEDS: Sodium Chloride 0.9% 1,000 ML IV SCH (22:59)
[2017-07-27 23:13] LABS: CALCIUM 7.7 mg/dL (8.4-10.5)
--- NOTE | 2017-07-28 01:43 | PN ---
DATE: 07/27/2017 SUBJECTIVE: The patient is seen lying in bed. She is awake; she is alert. She reports she is feeling better. She denies any nausea, vomiting. She still has pain in her left foot. She reports that her blister on the left foot was drained. PHYSICAL EXAMINATION: GENERAL: An elderly lady lying in bed. VITAL SIGNS: Blood pressure 85/50, heart rate 68, respiratory rate 18, temperature 97.3. HEENT: Normocephalic, atraumatic, positive pallor. NECK: Supple, no JVD. LUNGS: Bilateral equal air entry, bilateral equal expansion. CARDIAC: S1, S2. Regular rate and rhythm. No murmur, no rub. ABDOMEN: Obese, distended, soft, nontender, bowel sounds present. EXTREMITIES: No lower extremity edema. INTAKE AND OUTPUT: Not charted. LABORATORY DATA: WBC 12.4, hemoglobin 16, hematocrit 49 and platelets 120. Sodium 141, potassium 4.4, chloride 97, CO2 of 26, BUN 33, creatinine 4.5, glucose 43. Hemoglobin A1c 5.2. Calcium 8.5, phosphorus 4.7, magnesium 2. AST 169, ALT 88. Albumin 3.3, globulin 3.4. Total cholesterol 118, LDL less than 30. CA 125 CEA 4.8. CURRENT MEDICATIONS: Calan 40 mg t.i.d., digoxin 0.125, aspirin 81, cefepime 1 g daily, morphine 2 p.r.n., ProAmatine 5 t.i.d., cinacalcet 30 mg daily, sevelamer, sodium chloride, Tylenol, tramadol, verapamil, Zofran. ASSESSMENT: 1. Osteomyelitis of the left foot. 2. History of multiple myeloma. 3. Severe hypotension. 4. Weight loss. 5. End-stage renal disease. PLAN: 1. Hematology/Onychology evaluation. 2. Continue antibiotics for osteomyelitis. 3. Continue ProAmatine. 4. Start normal saline at 60. 5. Next dialysis tomorrow. Breana Schrader MD
[2017-07-28 07:07] LABS: HEMOGLOBIN 15.1 g/dL (12.0-16.0); MEAN CELL VOLUME 93.5 fl (80.0-105.0); MEAN CORPUSCULAR HEMOGLOBIN 29.9 pg (25.0-35.0); MEAN PLATELET VOLUME 10.7 fl (7.0-11.0); RBC 5.05 10^6/uL (3.5-6.1); RED CELL DISTRIBUTION WIDTH 15.9 % (11.5-14.5); WHITE BLOOD COUNT 14.1 10^3/ul (4.5-11.0)
[2017-07-28 07:19] LABS: INR 3.42 (0.93-1.08); PROTHROMBIN TIME 40.3 SECONDS (9.4-12.5)
[2017-07-28] MEDS: SEVELAMER CARBONATE PO SCH ×3 (07:20→16:40)
--- NOTE | 2017-07-28 07:29 | CP.PCM.PN ---
Subjective - Date & Time of Evaluation Date of Evaluation: 07/28/17 Time of Evaluation: 06:30 - Subjective Subjective: Awake,lying in bed, denies shortness of breath,denies chest pain, per RN had rapid Afib (telemetry) 140's and 150's. Reason for consultation and follow up: Cardiac evaluation, Rapid atrial fibrillation, on coumadin,history of multiple myeloma s/p chemo/radiation, gangrenous cystitis, ESRD on HD,left foot ulcer Seen and examined by me and Dr. Martin Objective - Vital Signs/Intake and Output Vital Signs (last 24 hours): Temp Pulse Resp BP Pulse Ox 97.3 F L 79 18 62/48 L 99 07/27/17 18:00 07/28/17 06:00 07/27/17 18:00 07/27/17 18:00 07/27/17 18:00 Intake and Output: 07/28/17 07/28/17 06:59 18:59 Intake Total 720 120 Balance 720 120 - Medications Medications: Current Medications Acetaminophen (Tylenol 325mg Tab) 650 mg PO Q6H PRN PRN Reason: Fever >100.4 F Aspirin (Ecotrin) 81 mg PO DAILY [facility] Last Admin: 07/27/17 09:55 Dose: 81 mg Cinacalcet (Sensipar) 30 mg PO DAILY [facility] Last Admin: 07/27/17 09:55 Dose: 30 mg Digoxin (Digoxin) 0.125 mg PO 1400 [facility] Cefepime HCl (Maxipime 1gm) 1 gm in 100 mls @ 100 mls/hr IVPB Q24H [facility] PRN Reason: Protocol Last Admin: 07/27/17 13:13 Dose: 100 mls/hr Sodium Chloride (Sodium Chloride 0.9%) 1,000 mls @ 60 mls/hr IV .[id number] [facility] Last Admin: 07/27/17 22:59 Dose: 60 mls/hr Midodrine (Proamatine) 5 mg PO TID [facility] Last Admin: 07/27/17 17:02 Dose: 5 mg Morphine Sulfate (Morphine) 2 mg IVP Q4H PRN PRN Reason: Pain, moderate (4-7) Last Admin: 07/27/17 13:54 Dose: 2 mg Sevelamer Carbonate ([Renvela]) 4 tab PO ACTID [facility] Last Admin: 07/28/17 07:20 Dose: Not Given Ondansetron HCl (Zofran Inj) 4 mg IVP Q6H PRN PRN Reason: Nausea/Vomiting Tramadol/Acetaminophen (Ultracet 37.5/325 Mg) 1 tab PO Q6H PRN PRN Reason: Pain, Mild (1-3) Verapamil HCl (Verapamil Inj) 2.5 mg IVP Q6 PRN PRN Reason: Heart rate Last Admin: 07/26/17 23:28 Dose: 2.5 mg Verapamil HCl (Calan Tab) 40 mg PO TID [facility] Last Admin: 07/27/17 17:03 Dose: 40 mg - Labs Labs: 07/28/17 06:30 07/27/17 22:56 PT 40.3 SECONDS (9.4-12.5) H 07/28/17 06:30 INR 3.42 (0.93-1.08) H 07/28/17 06:30 APTT 63.1 Seconds (25.1-36.5) H 07/24/17 09:15 - Constitutional Appears: No Acute Distress - Head Exam Head Exam: NORMOCEPHALIC - Eye Exam Eye Exam: Normal appearance - ENT Exam ENT Exam: Mucous Membranes Moist - Respiratory Exam Respiratory Exam: Decreased Breath Sounds, NORMAL BREATHING PATTERN - Cardiovascular Exam Cardiovascular Exam: Irregular Rhythm, +S1, +S2 Additional comments: Afib 70's - GI/Abdominal Exam GI & Abdominal Exam: Soft, Normal Bowel Sounds - Extremities Exam Extremities Exam: Normal Capillary Refill Additional comments: Left AV shunt +bruit/thrill left foot ulcer - Neurological Exam Neurological Exam: Alert, Awake, Oriented x3 - Psychiatric Exam Psychiatric exam: Normal Affect, Normal Mood - Skin Skin Exam: Intact, Normal Color, Warm Assessment and Plan - Assessment and Plan (Free Text) Assessment: A 61 year old female who came in to the ER due to left foot ulcer causin pain and unable to walk.Culture of wound positive for serratia. She had episode of tachycardia/rapid afib thus cardiolofy consulted. History of atrial fibrillation and on coumadin, multiple myeloma s/p chemo/radiation, gangrenous cystitis, ESRD on HD. Plan: Verbalized feels better Controlled heart rate Afib, started on Digoxin yesterday Digoxin 0.125 mg 3x a week (MWF) On ASA 81 mg daily,Midodrine 5 mg TID, Calan 40 mg TID Had hemodialysis yesterday Antibiotics for foot ulcer, positive for serratia MRI of left foot suggest osteomyelitis Continue current treatment Continue current medications Will follow up Plan and treatment discussed with Dr. Martin
[2017-07-28 07:34] VITALS: BP 87/41; TEMP 96; O2SAT 89
[2017-07-28 10:42] VITALS: PULSE 84
--- NOTE | 2017-07-28 13:02 | CP.PCM.PN ---
<Tab Seo - Last Filed: 07/28/17 12:58> Subjective - Date & Time of Evaluation Date of Evaluation: 07/28/17 Time of Evaluation: 12:58 - Subjective Subjective: Podiatry Progress Note for Dr. Saunders 61F seen at bedside for wound to right lateral heel, left hallux wound and lanced left foot blister as well as chronic Calles fracture of left foot. Patient is AAO x 3 and NAD at time of visit. Patient states that she has not yet received her dialysis today. States that the pain to her left foot is drastically improved since yesterday. Also states that she has noticed some bloody drainage from the lanced blister site draining through her bandage. Denies any acute overnight events or new pedal complaints. Denies any recent N/V /F/C/CP/SOB/D Objective - Vital Signs/Intake and Output Vital Signs (last 24 hours): Temp Pulse Resp BP Pulse Ox 96.0 F L 84 18 87/41 L 89 L 07/28/17 06:00 07/28/17 10:00 07/28/17 06:00 07/28/17 06:00 07/28/17 06:00 Intake and Output: 07/28/17 07/28/17 06:59 18:59 Intake Total 720 120 Balance 720 120 - Medications Medications: Current Medications Acetaminophen (Tylenol 325mg Tab) 650 mg PO Q6H PRN PRN Reason: Fever >100.4 F Aspirin (Ecotrin) 81 mg PO DAILY [facility] Last Admin: 07/27/17 09:55 Dose: 81 mg Cinacalcet (Sensipar) 30 mg PO DAILY [facility] Last Admin: 07/27/17 09:55 Dose: 30 mg Digoxin (Digoxin) 0.125 mg PO 1400 [facility] Cefepime HCl (Maxipime 1gm) 1 gm in 100 mls @ 100 mls/hr IVPB Q24H FINN PRN Reason: Protocol Last Admin: 07/27/17 13:13 Dose: 100 mls/hr Sodium Chloride (Sodium Chloride 0.9%) 1,000 mls @ 60 mls/hr IV .[id number] [facility] Last Admin: 07/27/17 22:59 Dose: 60 mls/hr Levothyroxine Sodium (Synthroid) 25 mcg PO 0600 [facility] Midodrine (Proamatine) 5 mg PO TID [facility] Last Admin: 07/28/17 09:58 Dose: Not Given Morphine Sulfate (Morphine) 2 mg IVP Q4H PRN PRN Reason: Pain, moderate (4-7) Last Admin: 07/27/17 13:54 Dose: 2 mg Sevelamer Carbonate ([Renvela]) 4 tab PO ACTID [facility] Last Admin: 07/28/17 11:30 Dose: Not Given Ondansetron HCl (Zofran Inj) 4 mg IVP Q6H PRN PRN Reason: Nausea/Vomiting Tramadol/Acetaminophen (Ultracet 37.5/325 Mg) 1 tab PO Q6H PRN PRN Reason: Pain, Mild (1-3) Verapamil HCl (Verapamil Inj) 2.5 mg IVP Q6 PRN PRN Reason: Heart rate Last Admin: 07/26/17 23:28 Dose: 2.5 mg Verapamil HCl (Calan Tab) 40 mg PO TID [facility] Last Admin: 07/28/17 09:58 Dose: Not Given - Labs Labs: 07/28/17 06:30 07/27/17 22:56 PT 40.3 SECONDS (9.4-12.5) H 07/28/17 06:30 INR 3.42 (0.93-1.08) H 07/28/17 06:30 APTT 63.1 Seconds (25.1-36.5) H 07/24/17 09:15 - Constitutional Appears: Well, Non-toxic, No Acute Distress - Head Exam Head Exam: ATRAUMATIC, NORMOCEPHALIC - Extremities Exam Additional comments: B/l LE focused exam Vasc: DP/PT pulses faintly palpable to b/l LE. CFT < 3 seconds to all digits. Improved left foot pedal edema. Skin temperature warm to warm from proximal to distal WNL b/l Neuro: Epicritic and protective sensation grossly intact b/l Derm: RLE - Approximately 0.2 cm x 0.2 cm x 0.1 cm ulceration noted to right lateral heel. Base fibrogranular and improving. No erythema, malodor, drainage, probe to bone, tracking, tunneling or undermining noted. No other clinical signs of infection noted LLE- Small incision site of lanced bullae noted with no active drainage, malodor , erythema or other clinical signs of infection. No signs of recurrence of blister. Hallux nail plate noted to be missing from digit with underlying laceration. Dried blood noted to base with no signs of clinical infection including erythema, malodor, or drainage. MSK: Diffuse pain noted to left foot and leg with palpation, especially at site of blister and left hallux, improved since yesterday. No POP to right foot ulceration. No other gross deformities noted b/l - Neurological Exam Neurological Exam: Alert, Awake, Oriented x3 - Psychiatric Exam Psychiatric exam: Normal Affect, Normal Mood Assessment and Plan - Assessment and Plan (Free Text) Assessment: 61F seen at bedside for wound to right lateral heel, left hallux wound and lanced left foot blister as well as chronic Calles fracture of left foot Plan: Patient seen and evaluated at bedside Plan discussed with attending Dr. Saunders Afebrile, WBC 14.1 from 12. 4 yesterday 07/24/17 Wound Cx left toe: Serratia Marcescens Continue IV abx per ID Continue pain meds L foot MRI 07/26: Probable OM of first distal phalanx LE arterial duplex: 1. Limited exam due to calcified vessels 2. B/l SFA disease 3. B/l popliteal, trifurcation, and/or tibial disease 4. If clinically indicated , further evaluation with MRA with gadolinium runoff, CTA runoff or conventional arteriogram can be considered LE venous duplex: No sonographic evidence of DVT L foot xray: There is a well defined cortical defect in the proximal fifth metatarsal that is most consistent with an old fracture. There is also periosteal thickening in the third and fourth metatarsal Right foot ulceration dressed with xeroform, Optifoam Left foot lanced blister site dressed with ABD, DSD. Left hallux wound site dressed with xeroform, DSD No plan for surgical intervention at this time; 4-6 weeks IV abx per ID recs Podiatry will continue to follow while patient in house Patient to remain NWB to left foot due to chronic Calles fracture Upon discharge, patient to follow up in wound care center <Mukesh Saunders - Last Filed: 07/28/17 16:22> Objective - Vital Signs/Intake and Output Vital Signs (last 24 hours): Temp Pulse Resp BP Pulse Ox 96.0 F L 84 18 87/41 L 89 L 07/28/17 06:00 07/28/17 10:00 07/28/17 06:00 07/28/17 06:00 07/28/17 06:00 Intake and Output: 07/28/17 07/28/17 06:59 18:59 Intake Total 720 660 Output Total 0 Balance 720 660 - Medications Medications: Current Medications Acetaminophen (Tylenol 325mg Tab) 650 mg PO Q6H PRN PRN Reason: Fever >100.4 F Aspirin (Ecotrin) 81 mg PO DAILY [facility] Last Admin: 07/27/17 09:55 Dose: 81 mg Digoxin (Digoxin) 0.125 mg PO 1400 [facility] Last Admin: 07/28/17 15:17 Dose: Not Given Diphenhydramine HCl (Benadryl) 25 mg IVP MOWEFR [facility] Last Admin: 07/28/17 15:59 Dose: 25 mg Cefepime HCl (Maxipime 1gm) 1 gm in 100 mls @ 100 mls/hr IVPB Q24H FINN PRN Reason: Protocol Last Admin: 07/27/17 13:13 Dose: 100 mls/hr Sodium Chloride (Sodium Chloride 0.9%) 1,000 mls @ 60 mls/hr IV .[id number] [facility] Last Admin: 07/27/17 22:59 Dose: 60 mls/hr Levothyroxine Sodium (Synthroid) 25 mcg PO 0600 [facility] Midodrine (Proamatine) 10 mg PO TID [facility] Morphine Sulfate (Morphine) 2 mg IVP Q4H PRN PRN Reason: Pain, moderate (4-7) Last Admin: 07/27/17 13:54 Dose: 2 mg Sevelamer Carbonate ([Renvela]) 4 tab PO ACTID [facility] Last Admin: 07/28/17 11:30 Dose: Not Given Ondansetron HCl (Zofran Inj) 4 mg IVP Q6H PRN PRN Reason: Nausea/Vomiting Tramadol/Acetaminophen (Ultracet 37.5/325 Mg) 1 tab PO Q6H PRN PRN Reason: Pain, Mild (1-3) Verapamil HCl (Verapamil Inj) 2.5 mg IVP Q6 PRN PRN Reason: Heart rate Last Admin: 07/26/17 23:28 Dose: 2.5 mg Verapamil HCl (Calan Tab) 40 mg PO TID [facility] Last Admin: 07/28/17 15:17 Dose: Not Given - Labs Labs: 07/28/17 06:30 07/28/17 15:10 PT 40.3 SECONDS (9.4-12.5) H 07/28/17 06:30 INR 3.42 (0.93-1.08) H 07/28/17 06:30 APTT 63.1 Seconds (25.1-36.5) H 07/24/17 09:15 Attending/Attestation - Attestation I have personally seen and examined this patient.: Yes I have fully participated in the care of the patient.: Yes I have reviewed all pertinent clinical information, including history, physical exam and plan: Yes
--- NOTE | 2017-07-28 13:58 | CP.PCM.PN ---
Subjective - Date & Time of Evaluation Date of Evaluation: 07/28/17 Time of Evaluation: 11:20 - Subjective Subjective: Comfortable in bed, no fevers. Objective - Vital Signs/Intake and Output Vital Signs (last 24 hours): Temp Pulse Resp BP Pulse Ox 96.0 F L 84 18 87/41 L 89 L 07/28/17 06:00 07/28/17 10:00 07/28/17 06:00 07/28/17 06:00 07/28/17 06:00 Intake and Output: 07/28/17 07/28/17 06:59 18:59 Intake Total 720 120 Balance 720 120 - Medications Medications: Current Medications Acetaminophen (Tylenol 325mg Tab) 650 mg PO Q6H PRN PRN Reason: Fever >100.4 F Aspirin (Ecotrin) 81 mg PO DAILY [facility] Last Admin: 07/27/17 09:55 Dose: 81 mg Cinacalcet (Sensipar) 30 mg PO DAILY [facility] Last Admin: 07/27/17 09:55 Dose: 30 mg Digoxin (Digoxin) 0.125 mg PO 1400 [facility] Cefepime HCl (Maxipime 1gm) 1 gm in 100 mls @ 100 mls/hr IVPB Q24H [facility] PRN Reason: Protocol Last Admin: 07/27/17 13:13 Dose: 100 mls/hr Sodium Chloride (Sodium Chloride 0.9%) 1,000 mls @ 60 mls/hr IV .[id number] [facility] Last Admin: 07/27/17 22:59 Dose: 60 mls/hr Levothyroxine Sodium (Synthroid) 25 mcg PO 0600 [facility] Midodrine (Proamatine) 5 mg PO TID [facility] Last Admin: 07/28/17 09:58 Dose: Not Given Morphine Sulfate (Morphine) 2 mg IVP Q4H PRN PRN Reason: Pain, moderate (4-7) Last Admin: 07/27/17 13:54 Dose: 2 mg Sevelamer Carbonate ([Renvela]) 4 tab PO ACTID [facility] Last Admin: 07/28/17 11:30 Dose: Not Given Ondansetron HCl (Zofran Inj) 4 mg IVP Q6H PRN PRN Reason: Nausea/Vomiting Tramadol/Acetaminophen (Ultracet 37.5/325 Mg) 1 tab PO Q6H PRN PRN Reason: Pain, Mild (1-3) Verapamil HCl (Verapamil Inj) 2.5 mg IVP Q6 PRN PRN Reason: Heart rate Last Admin: 07/26/17 23:28 Dose: 2.5 mg Verapamil HCl (Calan Tab) 40 mg PO TID [facility] Last Admin: 07/28/17 09:58 Dose: Not Given - Labs Labs: 07/28/17 06:30 07/27/17 22:56 PT 40.3 SECONDS (9.4-12.5) H 07/28/17 06:30 INR 3.42 (0.93-1.08) H 07/28/17 06:30 APTT 63.1 Seconds (25.1-36.5) H 07/24/17 09:15 - Constitutional Appears: Chronically Ill - Head Exam Head Exam: NORMAL INSPECTION - ENT Exam ENT Exam: Mucous Membranes Moist - Neck Exam Neck Exam: absent: Meningismus - Respiratory Exam Respiratory Exam: Decreased Breath Sounds - Cardiovascular Exam Cardiovascular Exam: +S1, +S2 - GI/Abdominal Exam GI & Abdominal Exam: Soft. absent: Tenderness - Extremities Exam Additional comments: left foot with dressings in place Assessment and Plan - Assessment and Plan (Free Text) Plan: Assessment Consider left hallux infected ulcer with skin and skin structure infection with osteomyelitis, growing Serratia from the wound ESRD on HD multiple myeloma S/P chemotherapy and radiation therapy atrial fibrillation on anticoagulation Plan continue cefepime; reviewed MRI of the foot- recommend 4-6 weeks of antibiotics with weekly ESR, CRP, CBC, CMP while on antibiotics with outpatient follow up with Podiatry
[2017-07-28] MEDS ORDERED: Digoxin 125 mcg (0.125 mg) Tab PO SCH (14:00)
--- NOTE | 2017-07-28 15:17 | PN ---
DATE: 07/28/2017 SUBJECTIVE: The patient is seen lying in bed. She is awake. She is alert. She is comfortable. She denies any pain at present. PHYSICAL EXAMINATION: GENERAL: Elderly lady, lying in bed. VITAL SIGNS: Blood pressure 87/41, heart rate 82, respiratory rate 18, temperature 96. HEENT: Normocephalic, atraumatic, positive pallor. NECK: Supple. No JVD. LUNGS: Bilateral equal air entry, bilateral equal expansion, no rales. CARDIAC: S1 and S2, regular rate and rhythm, no murmur, no rub. ABDOMEN: Soft, nondistended, nontender, bowel sounds present. EXTREMITIES: Dressing of the left foot, dressing of the right heel. INTAKE AND OUTPUT: 1200/not charted. LABORATORY DATA: WBC 14, hemoglobin 15, hematocrit 47, platelets 93. Sodium 139, potassium 4.1, chloride 97, CO2 of 28, BUN 44, creatinine 5, glucose 97, calcium 7.7, albumin 3.3. Corrected calcium is 8.2. Digoxin 1.2. Wound culture, Serratia. CURRENT MEDICATIONS: Verapamil 40 t.i.d., digoxin 0.125, aspirin 81, cefepime 1 g every 24, morphine, midodrine 5 t.i.d., cinacalcet 30 mg daily, sevelamer, normal saline at 60, Synthroid, Tylenol, Zofran. ASSESSMENT: 1. Osteomyelitis of the left foot. 2. Severe hypotension. 3. Atrial fibrillation. 4. History of multiple myeloma. 5. Severe secondary hyperparathyroidism, but now hypocalcemic. 6. End-stage renal disease. 7. Weight loss, failure to thrive. PLAN: 1. Continue low-dose IV fluids. 2. Hold Sensipar. 3. Increase ProAmatine to 10 t.i.d. 4. Hematology evaluation. Breana Schrader MD
[2017-07-28] MEDS ORDERED: DiphenhydrAMINE 50 mg/ml Inj IVP SCH (15:30)
[2017-07-28 16:01] LABS: ALB/GLOB RATIO 0.9 (1.1-1.8); CALCIUM 7.9 mg/dL (8.4-10.5)
[2017-07-28] MEDS: Sodium Chloride 0.9% 1,000 ML IV SCH (18:47)
[2017-07-28 21:41] LABS: HEPATITIS B SURFACE AG Negative (NEGATIVE)
[2017-07-28 21:47] LABS: HEPATITIS A IGM NEGATIVE (NEGATIVE); HEPATITIS B CORE AB NEGATIVE (NEGATIVE)
[2017-07-28 21:59] LABS: HEPATITIS C ANTIBODY NEGATIVE (NEGATIVE)
[2017-07-29] MEDS ORDERED: Levothyroxine 25 MCG TAB PO SCH (06:00)
--- NOTE | 2017-07-29 10:52 | DS ---
HISTORY OF PRESENT ILLNESS: The patient is a 61-year-old, seen and examined, lying in bed, seems to be comfortable. Denies any nausea or vomiting. Had dressing done. Went for dialysis and states she needs left foot dressing to be changed. The patient was admitted. She was seen in wound center by Dr. Love because of increasing left foot pain, so she was referred to emergency room for further evaluation. Patient was evaluated by Dr. Chang and states she has angiogram done earlier by Dr. Richar Morales and revealed heavy calcifications of her distal blood vessel. After the evaluation by Dr. Chang, she is not a candidate for any bypass surgery. Patient underwent MRI of left foot that shows possible osteomyelitis of first distal phalanx. She also has blood culture done that was negative. Wound culture shows Serratia marcescens. So, patient is being transferred to [facility] for local wound care and continuation of her antibiotics. PAST MEDICAL HISTORY: Significant for: 1. Multiple myeloma status post chemotherapy. 2. Chronic AFib. 3. End-stage renal disease, on hemodialysis. 4. Hypertension. PHYSICAL EXAMINATION: GENERAL: Today, she is awake, alert, oriented, and communicative. VITAL SIGNS: She is afebrile, pulse 82, respirations 18, and blood pressure 97/41. LUNGS: Bilateral good airflow. No rhonchi or crackles. HEART: S1 and S2 audible. No murmur. ABDOMEN: Soft, nontender. No rebound. No guarding. NEUROLOGIC: She is awake, alert, oriented, communicative. EXTREMITIES: Left foot is in the dressing. Right heel is also in the dressing. LABORATORY EXAM: WBC is 14.1, hemoglobin 15, hematocrit 47, platelets are 93. PT 40.3, INR 3.42. Chemistry: Sodium 139, potassium 3.9, chloride 97, CO2 of 27, BUN 51, creatinine 5.5, blood sugar of 101. Wound culture positive for Serratia marcescens. ASSESSMENT: 1. Left foot osteomyelitis. 2. Severe peripheral vascular disease. 3. End-stage renal disease on hemodialysis. 4. Hypotension. 5. Hypothyroidism. PLAN: Patient is being transferred to [facility]. She will be discharged on verapamil 40 mg three times a day, digoxin 0.125 on Monday, Monday and Monday. Patient will also continue cefepime for 4 to 6 weeks and we will continue her on midodrine since her blood pressure is running low. Continue her tramadol as needed. Patient will be followed by Dr. Saunders and [facility] doctors upon arrival to [facility]. Jessica Ambrosio MD
== END 2017-07-28 20:19 | DRG 592 ==
LOC: ED 06:22 → ERH 10:36 → 3RSO 19:12
PROVIDERS: ADMIT Internal Medicine; ATTEND Internal Medicine
PROC: 5A1D70Z Performance of Urinary Filtration, Intermittent, Less than 6 Hours Per Day (ICD-10-PCS; principal; 2017-07-24)
PROC: 5A1D70Z Performance of Urinary Filtration, Intermittent, Less than 6 Hours Per Day (ICD-10-PCS; 2017-07-26)
PROC: 5A1D70Z Performance of Urinary Filtration, Intermittent, Less than 6 Hours Per Day (ICD-10-PCS; 2017-07-28)
DX: L97.529 Non-pressure chronic ulcer of other part of left foot with unspecified severity (principal); N18.6 End stage renal disease; M86.9 Osteomyelitis, unspecified; C90.01 Multiple myeloma in remission; I12.0 Hypertensive chronic kidney disease with stage 5 chronic kidney disease or end stage renal disease; L03.116 Cellulitis of left lower limb; N25.81 Secondary hyperparathyroidism of renal origin; I48.2 Chronic atrial fibrillation; E03.9 Hypothyroidism, unspecified; D63.1 Anemia in chronic kidney disease; E87.5 Hyperkalemia; S90.822A Blister (nonthermal), left foot, initial encounter; R62.7 Adult failure to thrive; I73.9 Peripheral vascular disease, unspecified; L97.419 Non-pressure chronic ulcer of right heel and midfoot with unspecified severity; Z99.2 Dependence on renal dialysis; Z79.01 Long term (current) use of anticoagulants; Z92.21 Personal history of antineoplastic chemotherapy; Z92.3 Personal history of irradiation

== ENCOUNTER 2017-08-02 17:01 | Inpatient (IN) | payer MEDICARE, OTHER ==
[2017-08-02 17:01] VITALS: PULSE 144; BMI 22.7
[2017-08-02 18:38] LABS: VENOUS BLOOD GAS BASE EXCESS -1.4 mmol/L (0.0-2.0); VENOUS BLOOD GAS PO2 89 mm/Hg (30-55)
[2017-08-02 18:44] LABS: BASO # 0.06 K/mm3 (0.0-2.0); BASO % 0.4 % (0.0-3.0); EOS # 0.2 (0.0-0.7); EOS % 1.3 % (1.5-5.0); GRAN # 11.65 (1.4-6.5); GRAN % 79.6 % (50.0-68.0); HEMOGLOBIN 8.7 g/dL (12.0-16.0); LYMPH # 2.2 (1.2-3.4); LYMPH % 14.9 % (22.0-35.0); MEAN CELL VOLUME 93.9 fl (80.0-105.0); MEAN CORPUSCULAR HEMOGLOBIN 29.7 pg (25.0-35.0); MEAN CORPUSCULAR HGB CONC 31.6 g/dl (31.0-37.0); MEAN PLATELET VOLUME 11.7 fl (7.0-11.0); MONO # 0.6 (0.1-0.6); MONO % 3.8 % (1.0-6.0); RBC 2.93 10^6/uL (3.5-6.1); RED CELL DISTRIBUTION WIDTH 15.7 % (11.5-14.5); WHITE BLOOD COUNT 14.6 10^3/ul (4.5-11.0)
--- NOTE | 2017-08-02 18:49 | ED PDOC ---
Arrival/HPI - General Chief Complaint: GI Problem Time Seen by Provider: 08/02/17 17:07 Historian: Patient, Family, Other - History of Present Illness Narrative History of Present Illness (Text): 08/02/17 18:42 Patient is a 61 yo female, past medical history of osteomyelitis, past medical history of ESRD on dialysis Monday, Monday, Monday, hx of atrial fibrillation on Coumadin, history of multiple myeloma with PAST chemotherapy and radiation, presents to the Emergency Department from [facility] with history of "high INR" and "vomiting blood and bloody bowel movements". Patient states that she has had one episode of vomiting today, reported as bloody. Nursing staff also reported single bloody bowel movement earlier today as well. Patient reports feeling weak for several days and short of breath for past two days. She has persistent discomfort to left foot with dressing changes. Past Medical History - Infectious Disease Hx of Infectious Diseases: None - Reproductive Menopause: Yes - Cardiac Hx Atrial Fibrillation: Yes Hx Pacemaker: No Hx Peripheral Edema: Yes (ble +1 pitting dry leathery skin) Hx Peripheral Vascular Disease: Yes Other/Comment: left foot cool to touch - Pulmonary Other/Comment: pt had sleep study and was dx with sleep apnea by dr noel, could not tolerate cpap at home needs to follow up with dr noel but has not been feeling well - Neurological Hx Neurological Disorder: No - Renal Date of Last Dialysis Treatment: 08/01/17 Hx Renal Failure: Yes - Endocrine/Metabolic Hx Endocrine Disorders: No - Hematological/Oncological Hx Cancer: Yes Other/Comment: myeloma, osteomyelitis - Integumentary Hx Dermatological Disorder: Yes Other/Comment: ble discolored +1 pitting edema leathery skin, generalized dry flakey skin over body, dry skin to buttocks no openings, left foot toes ardry flakey skin both feete dry hard 1/2 nail missing from great toe, closed blister to top of foot, ischemic ulceration to left foot, painful, dry skin and toes r ft - Musculoskeletal/Rheumatological Hx Falls: No - Gastrointestinal Hx Gastrointestinal Disorders: Yes (weight loss poor appetite) - Genitourinary/Gynecological Hx Genitourinary Disorders: Yes (gangrenous cystitis) - Psychiatric Hx Anxiety: Yes Hx Emotional Abuse: No Hx Physical Abuse: No Hx Substance Use: No - Surgical History Hx Cholecystectomy: Yes (2007) Other/Comment: left arm av fistula, r arm port in and out post chemo when dx with multiple myeloma, angiogram rle 07/04/17 dr vale barakat, fistulagram - Anesthesia Hx Anesthesia Reactions: Yes (HIGH TOLERANCE) Hx Malignant Hyperthermia: No - Suicidal Assessment Feels Threatened In Home Enviroment: No Family/Social History Family/Social History: Unknown Family HX Smoking Status: Never Smoked Hx Alcohol Use: No Hx Substance Use: No Allergies/Home Meds Allergies/Adverse Reactions: Allergies IV CONTRAST Allergy (Uncoded 07/24/17 07:23) RASH Home Medications: Home Meds Medication Instructions Recorded Confirmed Cinacalcet [Sensipar] 30 mg PO DAILY 06/14/17 08/02/17 Sevelamer Carbonate [Renvela] 4 tab PO ACTID 06/14/17 08/02/17 Amino Acid/Protein/Vit C/Zinc 30 ml PO BID 08/02/17 08/02/17 [Prosource Tyshawn Protein Liquid] Midodrine [Proamatine] 5 mg PO TID 08/02/17 08/02/17 Silver Sulfadiazine 1% [Silver 1 appl TP DAILY 08/02/17 08/02/17 Sulfadiazine] Vitamin B Complex/Vit C/Folic 1 tab PO DAILY 08/02/17 08/02/17 [Nephro-Heraclio] traMADol [Ultram] 50 mg PO PRN PRN 08/02/17 08/02/17 Review of Systems - Review of Systems Constitutional: Fatigue. absent: Fevers Eyes: absent: Vision Changes ENT: absent: Hearing Changes Respiratory: SOB. absent: Cough, Sputum, Wheezing Cardiovascular: ST, Orthopnea. absent: Chest Pain, Syncope Gastrointestinal: Vomiting, Hematochezia, Hematemesis. absent: Abdominal Pain, Diarrhea, Nausea Genitourinary Female: absent: Vaginal Bleeding Musculoskeletal: Other (left foot pain, buttock sacral pain). absent: Back Pain Skin: Skin Lesions Neurological: absent: Dizziness, Focal Weakness Hemo/Lymphatic: Easy Bleeding Psychiatric: absent: Depression Physical Exam Vital Signs Reviewed: Yes Vital Signs Temp Pulse Resp BP Pulse Ox 08/02/17 20:44 98 F 91 H 19 95/51 L 08/02/17 20:23 97.5 F L 100 H 22 70/31 L 08/02/17 20:01 102 H 21 74/41 L 95 08/02/17 19:52 98 H 22 80/41 L 96 08/02/17 19:39 95 H 20 80/43 L 97 08/02/17 19:24 100 H 23 79/32 L 97 08/02/17 19:14 90 19 88/48 L 98 08/02/17 17:54 72 20 97 08/02/17 17:41 98.1 F 99 H 22 96 08/02/17 17:12 98 H 20 116/47 L 98 Temperature: Afebrile Blood Pressure: Hypotensive Pulse: Irregular Respiratory Rate: Tachypneic Appearance: Positive for: Ill-Appearing Pain Distress: Mild Mental Status: Positive for: Alert and Oriented X 3 - Systems Exam Head: Present: Atraumatic Pupils: Present: PERRL Conjunctiva: Present: Other (pale) Mouth: Present: Dry, Other (dried blood in oropharynx, no lacerations or lesions noted) Pharnyx: No: ERYTHEMA, Strider Nose (Internal): Present: No Active Bleeding Neck: Present: Normal Range of Motion. No: Meningeal Signs Respiratory/Chest: Present: Rales. No: Respiratory Distress, Accessory Muscle Use Cardiovascular: Present: Murmurs, Irregular Rhythm Abdomen: No: Tenderness, Distention Rectal: Present: Occult Blood. No: Gross Blood, Melena Back: Present: Decubitus Ulcer Upper Extremity: Present: NORMAL PULSES, Other (dialysis site to left upper extremity clean and intact). No: Edema Lower Extremity: Present: Edema (edema noted to left foot, pulses not palpable, there is serosanguionuos drainage from dorsum of foot), Other Neurological: Present: Motor Func Grossly Intact, Normal Sensory Function Skin: Present: Erythematous (to left foot as noted above) Psychiatric: Present: Alert Medical Decision Making ED Course and Treatment: 08/02/17 18:59 Patient is a 61 yo female presents from [facility] with history of elevated INR and vomiting blood (single episode). She also reported has large bloody bowel movement this morning. Patient on exam has SBP 86. Heart rate afib controlled rate of 90. Patient also noted to have left foot pain and swelling, has prior history of osteomyelitis reportedly [facility] at [facility]. Patient reportedly given Vitamin K at [facility] for elevated INR of 6 prior to arrival. Labs drawn here. IV established. Will administer protonix. Plan to transfuse prbc given hx of elevated INR and gastrointestinal bleeding. FFP ordered as well. I communicated with patient's PMD Dr. Branham, who supplements history from [facility]. I have also communicated with nephrology consult Dr. Barbosa, who will be consulted from nephrology standpoint pending disposition and possible transfer for dialysis needs when deemed stable. Family updated with current treatment plan. Patient endorsed to Dr. Lambert pending labs and final dispostion. Hgb noted to be significantly lower than recent discharge labs. At 18:45 patient noted to have large bowel movement, melena. Blood pressure 84/40. Heart rate irregular 90. No respiratory distress. Based on active bleeding, have obtained consent from patient with explanation of risks/benefits and indications for transfusion. Patient also requires further follow-up of lactate, abx treatment for osteomyelitis. I have updated patient's daughter via phone of current treatment plan, critical nature of patient's condition, and endorsement of care handed off to Dr. Lambert at 1900. At time of handoff, K pending, further consultations endorsed to oncoming physician, management of blood transfusions and reassessment and disposition endorsed. - Critical Care Critical Care Minutes: 45 minutes - Lab Interpretations Lab Results: 08/02/17 18:12 08/02/17 18:12 Lab Results 08/02/17 19:00: Blood Type O POSITIVE, Antibody Screen Negative, Crossmatch See Detail, BBK History Checked No verified bt 08/02/17 18:12: Digoxin 1.3 08/02/17 18:12: Sodium 142, Chloride 99, Potassium 5.5 H, Carbon Dioxide 28, Anion Gap 21 H, BUN 117 H, Creatinine 4.4 H, Est GFR ( Amer) 12, Est GFR (Non-Af Amer) 10, Random Glucose 81, Calcium 8.0 L, Magnesium 2.1, Total Bilirubin 1.0, AST 31, ALT 45, Alkaline Phosphatase 122, Lactate Dehydrogenase 543, Total Creatine Kinase 48, Troponin I 0.14 H* D, NT-Pro-B Natriuret Pep 407000 H, Total Protein 5.6 L, Albumin 2.5 L, Globulin 3.0, Albumin/Globulin Ratio 0.8 L 08/02/17 18:12: PT 21.9 H, INR 1.90 H, APTT 45.1 H 08/02/17 18:12: WBC 14.6 H, RBC 2.93 L, Hgb 8.7 L D, Hct 27.5 L, MCV 93.9, MCH 29.7, MCHC 31.6, RDW 15.7 H, Plt Count 103 L, MPV 11.7 H, Gran % 79.6 H, Lymph % (Auto) 14.9 L, Divide % (Auto) 3.8, Eos % (Auto) 1.3 L, Baso % (Auto) 0.4, Gran # 11.65 H, Lymph # (Auto) 2.2, Divide # (Auto) 0.6, Eos # (Auto) 0.2, Baso # (Auto ) 0.06 08/02/17 18:12: pO2 89 H, VBG pH 7.20 L, VBG pCO2 73.0 H*, VBG HCO3 28.5 H, VBG Total CO2 30.7 H, VBG O2 Sat (Calc) 98.4 H, VBG Base Excess -1.4 L, VBG Potassium 9.3 H*, Sodium 133.0, Chloride 104.0, Glucose 80, Lactate 2.7 H, FiO2 21.0, Venous Blood Potassium 9.3 H* - RAD Interpretation Radiology Orders: 08/02/17 17:27 CHEST PORTABLE [RAD] Stat - EKG Interpretation EKG Interpretation (Text): 08/02/17 18:58 EKG at 17:22 atrial fibrillation rate of 98 with low voltage qrs, septal infarct , age undetermined, lateral infarct, age undetermined. Interpreted by ED Physician: Yes Type: 12 lead EKG - Medication Orders Current Medication Orders: Digoxin (Digoxin) 0.125 mg PO 1400 FINN Pantoprazole Sodium (Protonix 40mg Ivpb) 40 mg in 100 mls @ 20 mls/hr IVPB .Q5H FINN Last Admin: 08/02/17 19:54 Dose: 20 mls/hr eMAR Start Stop Document 08/02/17 19:54 RD (Rec: 08/02/17 19:54 RD [id number]) Intravenous Solution Start Date 08/02/17 Start Time 19:54 Norepinephrine Bitartrate 8 mg (/ Sodium Chloride) 508 mls @ 15.24 mls/hr IV .Q24H PRN; Protocol; 4 MCG/MIN PRN Reason: TITRATE PER MD ORDER Last Admin: 08/02/17 20:20 Dose: 4 mcg/min, 15.24 mls/hr eMAR Start Stop Document 08/02/17 20:20 RD (Rec: 08/02/17 20:44 RD [id number]) Intravenous Solution Start Date 08/02/17 Start Time 20:20 Titration Intervention Document 08/02/17 20:20 RD (Rec: 08/02/17 20:44 RD [id number]) Titration Intake Waste Amount 0 Container Volume 508 Titration Dosing Titration Dose 4 IV Rate 15.24 Intake/Decrease Started Midodrine (Proamatine) 5 mg PO TID FINN Discontinued Medications Sodium Chloride 1,000 ml/ IV (SUPPLIES) 1,000 mls @ 4,202.1 mls/hr IV ONCE ONE PRN Reason: 60 ML/KG/HR Stop: 08/02/17 19:31 Last Admin: 08/02/17 19:30 Dose: 4,202.1 mls/hr eMAR Start Stop Document 08/02/17 19:30 RD (Rec: 08/02/17 19:47 RD [id number]) Intravenous Solution Start Date 08/02/17 Start Time 19:30 End Date 08/02/17 End time 20:00 Total Infusion Time 30 Vancomycin HCl (Vancomycin 1gm) 1 gm in 250 mls @ 167 mls/hr IVPB STAT STA PRN Reason: Protocol Stop: 08/02/17 21:12 NOREPINEPHRINE BIT/0.9 % NACL (Levophed 4 Mg/ 250 Ml Ns Premixed) 4 mg in 250 mls @ 15 mls/hr IV .[id number] PRN; Protocol; 4 MCG/MIN PRN Reason: TITRATE PER MD ORDER Phytonadione 10 mg/ Sodium (Chloride) 51 mls @ 100 mls/hr IV ONCE ONE Stop: 08/02/17 20:35 Pantoprazole Sodium (Protonix Inj) 40 mg IVP ONCE STA Stop: 08/02/17 19:06 Last Admin: 08/02/17 19:46 Dose: 40 mg IVP Administration Document 08/02/17 19:46 RD (Rec: 08/02/17 19:46 RD [id number]) Charges for Administration # of IVP Administrations 1 Sodium Polystyrene Sulfonate (Kayexalate Susp) 30 gm PO STAT STA Stop: 08/02/17 20:05 Last Admin: 08/02/17 20:47 Dose: 30 gm Disposition/Present on Arrival - Present on Arrival Any Indicators Present on Arrival: Yes History of DVT/PE: No History of Uncontrolled Diabetes: No Urinary Catheter: No History of Decub. Ulcer: Yes History Surgical Site Infection Following: None - Disposition Have Diagnosis and Disposition been Completed?: Yes Diagnosis: GI bleed, ESRD (end stage renal disease), Hx of osteomyelitis, Anemia, Elevated INR Disposition: HOSPITALIZED Disposition Time: 19:00 Patient Plan: Admission Patient Problems: Current Active Problems Problem Status Onset GI bleed Acute Condition: CRITICAL
[2017-08-02 18:55] LABS: INR 1.9 (0.93-1.08); PARTIAL THROMBOPLASTIN TIME 45.1 Seconds (25.1-36.5); PROTHROMBIN TIME 21.9 SECONDS (9.4-12.5)
[2017-08-02 19:04] LABS: ALB/GLOB RATIO 0.8 (1.1-1.8); ALBUMIN 2.5 g/dL (3.0-4.8)
[2017-08-02 19:33] LABS: TROPONIN I 0.14 ng/mL
[2017-08-02] MEDS ORDERED: Vancomycin 1gm in NS 250ml 1 GM/250 ML BAG IVPB STA (19:43)
--- NOTE | 2017-08-02 19:44 | ED PDOC ---
Physical Exam Vital Signs Temp Pulse Resp BP Pulse Ox 08/02/17 20:44 98 F 91 H 19 95/51 L 08/02/17 20:23 97.5 F L 100 H 22 70/31 L 08/02/17 20:01 102 H 21 74/41 L 95 08/02/17 19:52 98 H 22 80/41 L 96 08/02/17 19:39 95 H 20 80/43 L 97 08/02/17 19:24 100 H 23 79/32 L 97 08/02/17 19:14 90 19 88/48 L 98 08/02/17 17:54 72 20 97 08/02/17 17:41 98.1 F 99 H 22 96 08/02/17 17:12 98 H 20 116/47 L 98 Medical Decision Making ED Course and Treatment: 08/02/17 19:33 Case endorsed to me by . Patient has a history of ESRD, atrial fibrillation, and multiple myeloma. Patient also has history of high INR and recent vomiting of blood and bloody bowel movement. Patient has elevated INR here in the emergency department with low hemoglobin. She is hypotensive requiring blood transfusion, and correction of INR with FFP. Patient also noted to be possibly septic.Pt.given IV fluids,iv antibiotics,pressors in addition to stabilize. It was decided that patient will be admitted to ICU until patient is stable enough for transfer to [facility] for D when needed. 08/02/17 19:33 Code Sepsis called. 08/02/17 19:37 Case discussed with (laborer syrup machine), who accepts the patient to the intensive care unit. 08/02/17 20:14 Discussed case with , who accepts the patient to her service. Requests and for consult. 08/02/17 21:45 Discussed case with (electron beam welding machine operator), who agrees with the aforementioned treatment and states that he will consult with the laborer syrup machine . - Critical Care Critical Care Minutes: 30 minutes - Lab Interpretations Lab Results: 08/02/17 18:12 08/02/17 18:12 Lab Results 08/02/17 19:00: Blood Type O POSITIVE, Antibody Screen Negative, Crossmatch See Detail, BBK History Checked No verified bt 08/02/17 18:12: Digoxin 1.3 08/02/17 18:12: Sodium 142, Chloride 99, Potassium 5.5 H, Carbon Dioxide 28, Anion Gap 21 H, BUN 117 H, Creatinine 4.4 H, Est GFR ( Amer) 12, Est GFR (Non-Af Amer) 10, Random Glucose 81, Calcium 8.0 L, Magnesium 2.1, Total Bilirubin 1.0, AST 31, ALT 45, Alkaline Phosphatase 122, Lactate Dehydrogenase 543, Total Creatine Kinase 48, Troponin I 0.14 H* D, NT-Pro-B Natriuret Pep 695153 H, Total Protein 5.6 L, Albumin 2.5 L, Globulin 3.0, Albumin/Globulin Ratio 0.8 L 08/02/17 18:12: PT 21.9 H, INR 1.90 H, APTT 45.1 H 08/02/17 18:12: WBC 14.6 H, RBC 2.93 L, Hgb 8.7 L D, Hct 27.5 L, MCV 93.9, MCH 29.7, MCHC 31.6, RDW 15.7 H, Plt Count 103 L, MPV 11.7 H, Gran % 79.6 H, Lymph % (Auto) 14.9 L, Bond % (Auto) 3.8, Eos % (Auto) 1.3 L, Baso % (Auto) 0.4, Gran # 11.65 H, Lymph # (Auto) 2.2, Bond # (Auto) 0.6, Eos # (Auto) 0.2, Baso # (Auto ) 0.06 08/02/17 18:12: pO2 89 H, VBG pH 7.20 L, VBG pCO2 73.0 H*, VBG HCO3 28.5 H, VBG Total CO2 30.7 H, VBG O2 Sat (Calc) 98.4 H, VBG Base Excess -1.4 L, VBG Potassium 9.3 H*, Sodium 133.0, Chloride 104.0, Glucose 80, Lactate 2.7 H, FiO2 21.0, Venous Blood Potassium 9.3 H* - RAD Interpretation Radiology Orders: 08/02/17 17:27 CHEST PORTABLE [RAD] Stat - Medication Orders Current Medication Orders: Digoxin (Digoxin) 0.125 mg PO 1400 FINN Pantoprazole Sodium (Protonix 40mg Ivpb) 40 mg in 100 mls @ 20 mls/hr IVPB .Q5H FINN Last Admin: 08/02/17 19:54 Dose: 20 mls/hr eMAR Start Stop Document 08/02/17 19:54 RD (Rec: 08/02/17 19:54 RD [id number]) Intravenous Solution Start Date 08/02/17 Start Time 19:54 Norepinephrine Bitartrate 8 mg (/ Sodium Chloride) 508 mls @ 15.24 mls/hr IV .Q24H PRN; Protocol; 4 MCG/MIN PRN Reason: TITRATE PER MD ORDER Last Admin: 08/02/17 20:20 Dose: 4 mcg/min, 15.24 mls/hr eMAR Start Stop Document 08/02/17 20:20 RD (Rec: 08/02/17 20:44 RD [id number]) Intravenous Solution Start Date 08/02/17 Start Time 20:20 Titration Intervention Document 08/02/17 20:20 RD (Rec: 08/02/17 20:44 RD [id number]) Titration Intake Waste Amount 0 Container Volume 508 Titration Dosing Titration Dose 4 IV Rate 15.24 Intake/Decrease Started Cefepime HCl (Maxipime 1gm) 1 gm in 100 mls @ 100 mls/hr IVPB STAT STA PRN Reason: Protocol Stop: 08/02/17 22:10 Cefepime HCl (Maxipime 1gm) 1 gm in 100 mls @ 100 mls/hr IVPB Q24H FINN PRN Reason: Protocol Midodrine (Proamatine) 5 mg PO TID FINN Discontinued Medications Sodium Chloride 1,000 ml/ IV (SUPPLIES) 1,000 mls @ 4,202.1 mls/hr IV ONCE ONE PRN Reason: 60 ML/KG/HR Stop: 08/02/17 19:31 Last Admin: 08/02/17 19:30 Dose: 4,202.1 mls/hr eMAR Start Stop Document 08/02/17 19:30 RD (Rec: 08/02/17 19:47 RD [id number]) Intravenous Solution Start Date 08/02/17 Start Time 19:30 End Date 08/02/17 End time 20:00 Total Infusion Time 30 Vancomycin HCl (Vancomycin 1gm) 1 gm in 250 mls @ 167 mls/hr IVPB STAT STA PRN Reason: Protocol Stop: 08/02/17 21:12 NOREPINEPHRINE BIT/0.9 % NACL (Levophed 4 Mg/ 250 Ml Ns Premixed) 4 mg in 250 mls @ 15 mls/hr IV .[id number] PRN; Protocol; 4 MCG/MIN PRN Reason: TITRATE PER MD ORDER Phytonadione 10 mg/ Sodium (Chloride) 51 mls @ 100 mls/hr IV ONCE ONE Stop: 08/02/17 20:35 Pantoprazole Sodium (Protonix Inj) 40 mg IVP ONCE STA Stop: 08/02/17 19:06 Last Admin: 08/02/17 19:46 Dose: 40 mg IVP Administration Document 08/02/17 19:46 RD (Rec: 08/02/17 19:46 RD [id number]) Charges for Administration # of IVP Administrations 1 Sodium Polystyrene Sulfonate (Kayexalate Susp) 30 gm PO STAT STA Stop: 08/02/17 20:05 Last Admin: 08/02/17 20:47 Dose: 30 gm - Scribe Statement The provider has reviewed the documentation as recorded by the Shayan Jack Provider Scribe Attestation: All medical record entries made by the Susuibcharisse were at my direction and personally dictated by me. I have reviewed the chart and agree that the record accurately reflects my personal performance of the history, physical exam, medical decision making, and the department course for this patient. I have also personally directed, reviewed, and agree with the discharge instructions and disposition. Disposition/Present on Arrival - Present on Arrival Any Indicators Present on Arrival: Yes History of DVT/PE: No History of Uncontrolled Diabetes: No Urinary Catheter: No History of Decub. Ulcer: Yes History Surgical Site Infection Following: None - Disposition Have Diagnosis and Disposition been Completed?: Yes Diagnosis: GI bleed, ESRD (end stage renal disease), Hx of osteomyelitis, Anemia, Elevated INR Disposition: HOSPITALIZED Disposition Time: 20:00 Patient Plan: Admission Patient Problems: Current Active Problems Problem Status Onset GI bleed Acute Condition: CRITICAL
[2017-08-02] MEDS: Pantoprazole 40mg/100mL NS 40 MG/100 ML BAG IVPB SCH (19:54)
[2017-08-02] MEDS ORDERED: NOREPINEPHRINE BIT/0.9 % NACL 4 MG/250 ML BAG IV PRN (20:02)
[2017-08-02] MEDS ORDERED: Sod Polystyrene Sulf 15 gm/60 ml Susp PO STA (20:04)
[2017-08-02] MEDS ORDERED: Phytonadione 10 MG in Sodium Chloride 0.9% 50 ML IV ONE (20:05)
[2017-08-02] MEDS: Norepinephrine 8 MG in Sodium Chloride 0.9% 500 ML IV PRN (20:20)
[2017-08-02] MEDS ORDERED: Cefepime 1gm in NS 100ml 1 GM/100 ML BAG IVPB STA (21:11)
--- NOTE | 2017-08-02 21:13 | CP.PCM.CON ---
Addendum entered and electronically signed by Kan Arias DO 08/03/17 01:47: Patient has refused further blood draws including CBC, VBG shock panel this morning despite explaining the benefits. Patient currently hemodynamically stable. Will attempt once again later. Original Note: <Kan Arias - Last Filed: 08/02/17 23:23> History of Present Illness - History of Present Illness History of Present Illness: PGY-1 H&P for Dr. Deng This is a 61 year old female with PMHx multiple myeloma s/p chemotherapy and radiation treatments, ESRD on HD TTS, A-fib on Coumadin who presented from the detention with complaint of black tarry stools. The patient was found to have black stools in her bed at the detention today. Per patient, this has never happened before. She denies taking excess aspirin or NSAIDs. She does not have metallic taste in her mouth nor does she experience belching, bloating, or excess gas. Per family, patient happened to also cough up blood on Monday after dialysis. Patient complaining of general lethargy. Patient states that her baseline BP is in the 80s/50s. Denies fever, chills, chest pain, dyspnea, abdominal pain. PMHx: Multiple myeloma s/p chemotherapy and radiation treatments, ESRD on HD TTS , A-fib on Coumadin PSHx: portacath placement, AV fistula Allergies: IV contrast Social: Denies tobacco, alcohol, drugs. Family Hx: denies PMD: Dr. Wagner [place] meds: reviewed as per [facility] Review of Systems - Constitutional Constitutional: absent: Chills, Fever - EENT Eyes: absent: Change in Vision Ears: absent: Decreased Hearing Nose/Mouth/Throat: absent: Nasal Congestion - Cardiovascular Cardiovascular: absent: Chest Pain - Respiratory Respiratory: absent: Dyspnea - Gastrointestinal Gastrointestinal: Melena. absent: Abdominal Pain, Belching, Bloating, Nausea, Vomiting - Genitourinary Genitourinary: absent: Dysuria - Musculoskeletal Musculoskeletal: absent: Back Pain - Integumentary Integumentary: absent: Rash - Neurological Neurological: Weakness - Psychiatric Psychiatric: absent: Anxiety - Endocrine Endocrine: absent: Palpitations Past Patient History - Infectious Disease Hx of Infectious Diseases: None - Past Social History Smoking Status: Never Smoked - CARDIAC Hx Atrial Fibrillation: Yes Hx Pacemaker: No Hx Peripheral Edema: Yes (ble +1 pitting dry leathery skin) Hx Peripheral Vascular Disease: Yes Other/Comment: left foot cool to touch - PULMONARY Other/Comment: pt had sleep study and was dx with sleep apnea by dr noel, could not tolerate cpap at home needs to follow up with dr noel but has not been feeling well - NEUROLOGICAL Hx Neurological Disorder: No - RENAL Date of Last Dialysis Treatment: 08/01/17 Hx Renal Failure: Yes - ENDOCRINE/METABOLIC Hx Endocrine Disorders: No - HEMATOLOGICAL/ONCOLOGICAL Hx Cancer: Yes Other/Comment: myeloma, osteomyelitis - INTEGUMENTARY Hx Dermatological Problems: Yes Other/Comment: ble discolored +1 pitting edema leathery skin, generalized dry flakey skin over body, dry skin to buttocks no openings, left foot toes ardry flakey skin both feete dry hard 1/2 nail missing from great toe, closed blister to top of foot, ischemic ulceration to left foot, painful, dry skin and toes r ft - MUSCULOSKELETAL/RHEUMATOLOGICAL Hx Falls: No - GASTROINTESTINAL Hx Gastrointestinal Disorders: Yes (weight loss poor appetite) - GENITOURINARY/GYNECOLOGICAL Hx Genitourinary Disorders: Yes (gangrenous cystitis) - PSYCHIATRIC Hx Anxiety: Yes Hx Emotional Abuse: No Hx Physical Abuse: No Hx Substance Use: No - SURGICAL HISTORY Hx Cholecystectomy: Yes (2007) Other/Comment: left arm av fistula, r arm port in and out post chemo when dx with multiple myeloma, angiogram rle 07/04/17 dr vale barakat, fistulagram - ANESTHESIA Hx Anesthesia Reactions: Yes (HIGH TOLERANCE) Hx Malignant Hyperthermia: No Meds Allergies/Adverse Reactions: Allergies Allergy/AdvReac Type Severity Reaction Status Date / Time IV CONTRAST Allergy RASH Uncoded 07/24/17 07:23 - Medications Medications: Current Medications Digoxin (Digoxin) 0.125 mg PO 1400 FINN Pantoprazole Sodium (Protonix 40mg Ivpb) 40 mg in 100 mls @ 20 mls/hr IVPB .Q5H FINN Last Admin: 08/02/17 19:54 Dose: 20 mls/hr Norepinephrine Bitartrate 8 mg (/ Sodium Chloride) 508 mls @ 15.24 mls/hr IV .Q24H PRN; Protocol; 4 MCG/MIN PRN Reason: TITRATE PER MD ORDER Last Admin: 08/02/17 20:20 Dose: 4 mcg/min, 15.24 mls/hr Cefepime HCl (Maxipime 1gm) 1 gm in 100 mls @ 100 mls/hr IVPB STAT STA PRN Reason: Protocol Stop: 08/02/17 22:10 Midodrine (Proamatine) 5 mg PO TID FINN Physical Exam - Constitutional Appears: Chronically Ill - Head Exam Head Exam: ATRAUMATIC, NORMOCEPHALIC - Eye Exam Eye Exam: EOMI, PERRL - ENT Exam ENT Exam: Mucous Membranes Dry - Respiratory Exam Respiratory Exam: Rales (bibasilar), NORMAL BREATHING PATTERN. absent: Rhonchi , Wheezes - Cardiovascular Exam Cardiovascular Exam: Irregular Rhythm, +S1, +S2. absent: JVD - GI/Abdominal Exam GI & Abdominal Exam: Normal Bowel Sounds, Soft. absent: Distended, Tenderness - Rectal Exam Additional comments: Diminished rectal tone No gross mass or hemorrhoids appreciated Black stool heme-positive on bedside stool occult card - Extremities Exam Extremities exam: Negative for: pedal edema Additional comments: AV fistula on left arm with bruits Right foot heel ulcer Left foot cellulitic changes and hallux ulceration - Back Exam Additional comments: Stage 1 ulcer superior to gluteal cleft - Neurological Exam Neurological exam: Alert, CN II-XII Intact, Oriented x3 - Psychiatric Exam Additional comments: Lethargic - Skin Skin Exam: Dry, Intact, Warm Results - Vital Signs Recent Vital Signs: Last Vital Signs Temp 98 F 08/02/17 20:44 Pulse 91 H 08/02/17 20:44 Resp 19 08/02/17 20:44 BP 95/51 L 08/02/17 20:44 Pulse Ox 95 08/02/17 20:01 - Labs Result Diagrams: 08/02/17 18:12 08/02/17 18:12 Assessment & Plan - Assessment and Plan (Free Text) Assessment: This is a 61 year old female with PMHx multiple myeloma s/p chemotherapy and radiation treatments, ESRD on HD TTS, A-fib on Coumadin who presented from the detention with complaint of black tarry stools. Patient presented with sepsis (SBP in the 70s and tachycardic with lactate 2.7) and GI bleed. Plan: Neurological -Awake, alert, verbal but lethargic Cardiology -baseline BP 80s/50s -Currently on Levophed drip, will titrate as necessary -Midodrine 5 mg PO TID -Digoxin -Hold BP medications -Elevated troponins likely due to ESRD Pulmonology -Nasal cannula as needed Gastroenterology -GI consulted -Protonix drip -NPO -Monitor H/H Endocrine -Maintain euglycemia Renal -ESRD on HD TTS -Nephrology consulted -Kayexcelate 30 gm given in the ED -Replete electrolytes as needed Infectious Diseases -Given Vancomycin in the ED -Ordered for a dose of Cefepime -ID consulted -Will trend the lactate Heme/Onc -Given Vitamin K in the ED -Transfused 1 unit of blood in the ED -f/u H/H Q6H Prophylaxis -Protonix drip -VTE contraindicated Discussed with Dr. Sowmya Arias PGY-1 <Nicky Deng - Last Filed: 08/03/17 02:59> Meds - Medications Medications: Current Medications Digoxin (Digoxin) 0.125 mg PO 1400 FINN Pantoprazole Sodium (Protonix 40mg Ivpb) 40 mg in 100 mls @ 20 mls/hr IVPB .Q5H FINN Last Admin: 08/03/17 00:50 Dose: 20 mls/hr Norepinephrine Bitartrate 8 mg (/ Sodium Chloride) 508 mls @ 15.24 mls/hr IV .Q24H PRN; Protocol; 4 MCG/MIN PRN Reason: TITRATE PER MD ORDER Last Admin: 08/02/17 20:20 Dose: 4 mcg/min, 15.24 mls/hr Cefepime HCl (Maxipime 1gm) 1 gm in 100 mls @ 100 mls/hr IVPB Q24H FINN PRN Reason: Protocol Midodrine (Proamatine) 5 mg PO TID [facility] Results - Vital Signs Recent Vital Signs: Last Vital Signs Temp 97.8 F 08/03/17 00:00 Pulse 113 H 08/03/17 01:10 Resp 16 08/03/17 01:10 BP 86/44 L 08/03/17 01:01 Pulse Ox 93 L 08/02/17 21:00 - Labs Result Diagrams: 08/02/17 18:12 08/02/17 18:12 Attending/Attestation - Attestation I have personally seen and examined this patient.: Yes I have fully participated in the care of the patient.: Yes I have reviewed all pertinent clinical information: Yes Notes (Text): 08/03/17 02:49 Patient was seen when she was in bed # 2 in the ER. Agree with consult note. This 61 year old AA woman who has history of multiple myeloma, on chemotherapy, chronic atrial fibrillation, gangrenous cystitis, PVD , b/l feet ulcer, ESRD on HD, port-a-cath insertion, AV fistula insertion, admitted from [facility] for low BP,passing black tarry stool, hemetemesis, elevated lactic acid, coagulopathy, elevated BNP,hyperkalemia, received 1 unit PRBC , vit K 10 mg IV, 30 g kayexalate,will continue cefepime, IV protonix,get GI, ID, nephrhology consultation , after stabilization may send to [facility] for dialysis.
--- NOTE | 2017-08-02 23:46 | PCM.SEPTIC ---
<Kan Arias - Last Filed: 08/02/17 23:46> Sepsis Progress Note - Reassessment Type Date of Evaluation: 08/02/17 Time of Evaluation: 11:30 Reassessment Type: Non-invasive reassessment - Non Invasive Reassessment Were the most recent vital sign reviewed: Yes Vital Sign (Latest): Temp Pulse Resp BP Pulse Ox 98 F 112 H 20 74/48 L 93 L 08/02/17 22:23 08/02/17 22:23 08/02/17 22:23 08/02/17 22:23 08/02/17 21:00 Cardiovascular: Yes: Irregularly Irregular. No: JVD, Murmur Respiratory: Yes: Rales (bibasilar) Capillary Refill: Normal (Less than 2 sec) Skin: Warm, Dry <Nicky Deng - Last Filed: 08/03/17 04:05> Sepsis Progress Note - Non Invasive Reassessment Vital Sign (Latest): Temp Pulse Resp BP Pulse Ox 97.8 F 105 H 11 L 85/64 L 91 L 08/03/17 00:00 08/03/17 03:20 08/03/17 03:20 08/03/17 03:01 08/03/17 03:20 Attending/Attestation - Attestation I have personally seen and examined this patient.: Yes I have fully participated in the care of the patient.: Yes I have reviewed all pertinent clinical information, including history, physical exam and plan: Yes Notes (Text): 08/03/17 04:05 Agree with note.
[2017-08-03] MEDS: Pantoprazole 40mg/100mL NS 40 MG/100 ML BAG IVPB SCH ×3 (00:50→14:48)
[2017-08-03 05:22] LABS: INR 1.39 (0.93-1.08); PROTHROMBIN TIME 16.1 SECONDS (9.4-12.5)
[2017-08-03 05:25] LABS: BASO # 0.05 K/mm3 (0.0-2.0); BASO % 0.2 % (0.0-3.0); EOS # 0.1 (0.0-0.7); EOS % 0.5 % (1.5-5.0); GRAN # 18.32 (1.4-6.5); GRAN % 85.9 % (50.0-68.0); HEMOGLOBIN 7.6 g/dL (12.0-16.0); LYMPH # 2.3 (1.2-3.4); LYMPH % 10.6 % (22.0-35.0); MEAN CELL VOLUME 91.2 fl (80.0-105.0); MEAN CORPUSCULAR HEMOGLOBIN 30.5 pg (25.0-35.0); MEAN CORPUSCULAR HGB CONC 33.5 g/dl (31.0-37.0); MEAN PLATELET VOLUME 10.6 fl (7.0-11.0); MONO # 0.6 (0.1-0.6); MONO % 2.8 % (1.0-6.0); RBC 2.49 10^6/uL (3.5-6.1); RED CELL DISTRIBUTION WIDTH 15.2 % (11.5-14.5); WHITE BLOOD COUNT 21.3 10^3/ul (4.5-11.0)
[2017-08-03 05:34] LABS: VENOUS BLOOD GAS BASE EXCESS -1.5 mmol/L (0.0-2.0); VENOUS BLOOD GAS PO2 223 mm/Hg (30-55); VENOUS BLOOD PH 7.35 (7.32-7.43)
--- NOTE | 2017-08-03 06:13 | PCM.PROC ---
<Sugey Beard - Last Filed: 08/03/17 06:12> Procedures Attestation:: I certify that I have explained the specified Operation(s) or Procedure(s), risks, benefits and reasonable alternatives to the Patient and/or other person responsible. The opportunity was given to ask questions and all questions answered - Central Line Placement Right Internal Jugular Triple Lumen Catheter Aseptic technique was employed throughout the procedure: Hand Hygiene done prior to procedure, Full sterile barriers (mask, hair cover, sterile gown, sterile gloves), Full body sterile drape, Chloraprep Antiseptic: 30 second prep for IJ or SC sites, Chloraprep Antiseptic: 2 minute prep for Femoral CVP Time Out Performed: Yes Pt. Placed on Pulse Ox Monitor: Yes Central Line Prep: Chlorhexidine-Alcohol Combination Local Anesthesia Used: Lidocaine 1% Ultrasound Used for Placement: Yes Central Line Lumen Inserted: triple Central Line Length: 16 cm Post Procedure: Sutured in Place, Good Blood Return, All Ports Aspirated, Flushed, Capped, Sterile Dressing Applied Secured by: Suture Post procedure dressing: Chlorhexidine disc (Biopatch) Post Procedure X-Ray: Yes Patient Tolerated Procedure: Well Immediate Complications: None <Nicky Deng - Last Filed: 08/03/17 06:49> Attending/Attestation - Attestation I have personally seen and examined this patient.: Yes I have fully participated in the care of the patient.: Yes I have reviewed all pertinent clinical information, including history, physical exam and plan: Yes
[2017-08-03 06:37] LABS: ALB/GLOB RATIO 0.8 (1.1-1.8); ALBUMIN 2.3 g/dL (3.0-4.8); CALCIUM 7.9 mg/dL (8.4-10.5)
--- NOTE | 2017-08-03 07:37 | CP.PCM.CON ---
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 She reports this has never happened before. She states she has never had an EGD or colonoscopy. Patient denies having any NSAID use, but is on Coumadin. Patient denies having any abdominal pain, nausea/ vomiting/diarrhea, chest pain or shortness of breath, dysuria, hematuria, numbness or tingling. Patient states she had one episode of coughing up blood on Monday during HD. In ED, patient was noted to be hypotensive and anemic. She had 2U PRBC and Hgb dropped from 8.7 to 7.6. Of Note, patient was recently admitted [place] [facility] [place] for osteomyelitis of her L foot and was then sent to [facility] for further rehabilitation. 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 Family history: Denies PMD: Dr. Wagner High Tension Tester: Dr. Alcocer Review of Systems - Review of Systems All systems: reviewed and no additional remarkable complaints except Review of Systems: 12 point ROS reviewed as per HPI and is otherwise negative. Past Patient History - Infectious Disease Hx of Infectious Diseases: None - Past Social History Smoking Status: Never Smoked - CARDIAC Hx Atrial Fibrillation: Yes Hx Pacemaker: No Hx Peripheral Edema: Yes (ble +1 pitting dry leathery skin) Hx Peripheral Vascular Disease: Yes Other/Comment: left foot cool to touch - PULMONARY Other/Comment: pt had sleep study and was dx with sleep apnea by dr noel, could not tolerate cpap at home needs to follow up with dr noel but has not been feeling well - NEUROLOGICAL Hx Neurological Disorder: No - RENAL Date of Last Dialysis Treatment: 08/01/17 Hx Renal Failure: Yes - ENDOCRINE/METABOLIC Hx Endocrine Disorders: No - HEMATOLOGICAL/ONCOLOGICAL Hx Cancer: Yes Other/Comment: myeloma, osteomyelitis - INTEGUMENTARY Hx Dermatological Problems: Yes Other/Comment: ble discolored +1 pitting edema leathery skin, generalized dry flakey skin over body, dry skin to buttocks no openings, left foot toes ardry flakey skin both feete dry hard 1/2 nail missing from great toe, closed blister to top of foot, ischemic ulceration to left foot, painful, dry skin and toes r ft - MUSCULOSKELETAL/RHEUMATOLOGICAL Hx Falls: No - GASTROINTESTINAL Hx Gastrointestinal Disorders: Yes (weight loss poor appetite) - GENITOURINARY/GYNECOLOGICAL Hx Genitourinary Disorders: Yes (gangrenous cystitis) - PSYCHIATRIC Hx Anxiety: Yes Hx Emotional Abuse: No Hx Physical Abuse: No Hx Substance Use: No - SURGICAL HISTORY Hx Cholecystectomy: Yes (2007) Other/Comment: left arm av fistula, r arm port in and out post chemo when dx with multiple myeloma, angiogram rle 07/04/17 dr vale barakat, fistulagram - ANESTHESIA Hx Anesthesia Reactions: Yes (HIGH TOLERANCE) Hx Malignant Hyperthermia: No Meds Allergies/Adverse Reactions: Allergies Allergy/AdvReac Type Severity Reaction Status Date / Time IV CONTRAST Allergy RASH Uncoded 07/24/17 07:23 - Medications Medications: Current Medications Digoxin (Digoxin) 0.125 mg PO 1400 FINN Pantoprazole Sodium (Protonix 40mg Ivpb) 40 mg in 100 mls @ 20 mls/hr IVPB .Q5H [facility] Last Admin: 08/03/17 00:50 Dose: 20 mls/hr Norepinephrine Bitartrate 8 mg (/ Sodium Chloride) 508 mls @ 15.24 mls/hr IV .Q24H PRN; Protocol; 4 MCG/MIN PRN Reason: TITRATE PER MD ORDER Last Admin: 08/02/17 20:20 Dose: 4 mcg/min, 15.24 mls/hr Cefepime HCl (Maxipime 1gm) 1 gm in 100 mls @ 100 mls/hr IVPB Q24H [facility] PRN Reason: Protocol Midodrine (Proamatine) 5 mg PO TID [facility] Physical Exam - Constitutional Appears: Chronically Ill - Head Exam Head Exam: ATRAUMATIC, NORMAL INSPECTION, NORMOCEPHALIC - ENT Exam ENT Exam: Mucous Membranes Dry - Respiratory Exam Respiratory Exam: Clear to Auscultation Bilateral, NORMAL BREATHING PATTERN. absent: Rales, Rhonchi, Wheezes - Cardiovascular Exam Cardiovascular Exam: Tachycardia, Irregular Rhythm, +S1, +S2. absent: Gallop, Rubs, Systolic Murmur - GI/Abdominal Exam GI & Abdominal Exam: Normal Bowel Sounds, Soft. absent: Mass, Rebound, Rigid, Tenderness - Extremities Exam Extremities exam: Negative for: calf tenderness, pedal edema Additional comments: wound on LLE - Neurological Exam Neurological exam: CN II-XII Intact - Skin Skin Exam: Dry, Warm Results - Vital Signs Recent Vital Signs: Last Vital Signs Temp 97.8 F 08/03/17 04:00 Pulse 111 H 08/03/17 06:31 Resp 14 08/03/17 06:31 BP 92/54 L 08/03/17 06:31 Pulse Ox 86 L 08/03/17 06:31 - Labs Result Diagrams: 08/03/17 05:00 08/03/17 05:00 Labs: Laboratory Results - last 24 hr 08/03/17 08/03/17 08/03/17 05:00 05:00 05:00 WBC 21.3 H D RBC 2.49 L Hgb 7.6 L Hct 22.7 L MCV 91.2 MCH 30.5 MCHC 33.5 RDW 15.2 H Plt Count 82 L MPV 10.6 Gran % 85.9 H Lymph % (Auto) 10.6 L Sebastian % (Auto) 2.8 Eos % (Auto) 0.5 L Baso % (Auto) 0.2 Gran # 18.32 H Lymph # (Auto) 2.3 Sebastian # (Auto) 0.6 Eos # (Auto) 0.1 Baso # (Auto) 0.05 PT 16.1 H INR 1.39 H pO2 223 H VBG pH 7.35 VBG pCO2 44.0 VBG HCO3 24.3 VBG Total CO2 25.7 VBG O2 Sat (Calc) 100.3 H VBG Base Excess -1.5 L VBG Potassium 4.8 Sodium 139.0 Chloride 108.0 H Glucose 92 Lactate 2.0 FiO2 21.0 Potassium Carbon Dioxide Anion Gap BUN Creatinine Est GFR ( Amer) Est GFR (Non-Af Amer) Random Glucose Calcium Total Bilirubin AST ALT Alkaline Phosphatase Total Protein Albumin Globulin Albumin/Globulin Ratio Venous Blood Potassium 4.8 08/03/17 05:00 WBC RBC Hgb Hct MCV MCH MCHC RDW Plt Count MPV Gran % Lymph % (Auto) Sebastian % (Auto) Eos % (Auto) Baso % (Auto) Gran # Lymph # (Auto) Sebastian # (Auto) Eos # (Auto) Baso # (Auto) PT INR pO2 VBG pH VBG pCO2 VBG HCO3 VBG Total CO2 VBG O2 Sat (Calc) VBG Base Excess VBG Potassium Sodium 144 Chloride 104 Glucose Lactate FiO2 Potassium 4.7 Carbon Dioxide 24 Anion Gap 21 H BUN 127 H* Creatinine 4.6 H Est GFR ( Amer) 12 Est GFR (Non-Af Amer) 10 Random Glucose 93 Calcium 7.9 L Total Bilirubin 0.9 AST 25 ALT 40 Alkaline Phosphatase 110 Total Protein 5.1 L Albumin 2.3 L Globulin 2.7 Albumin/Globulin Ratio 0.8 L Venous Blood Potassium Assessment & Plan - Assessment and Plan (Free Text) Assessment: This is a 61yo female with past medical history of a.fib (on Coumadin), Multiple myeloma s/p chemo/radiation, ESRD on HD who is admitted for 1. Shock (hemorrhagic v. septic) - Lactate elevated, SIRS 2. Anemia secondary to GI bleed (on coumadin) - s/p 2U PRBC and 1U FFP 3. Osteomyelitis of L distal phalanx 4. ESRD on HD 5. Multiple myeloma s/p chemo/radiation 6. A.fib (was on Coumadin at home) Plan: EGD done today. Showed non-bleeding gastric and esophageal ulcers. No overt signs of bleeding seen on EGD. Will repeat EGD in a couple of days. Recommend 1 more unit of FFP. Patient is coagulopathic. Patient will need a colonoscopy before d/c. Patient is on protonix drip. Monitor H/H. Patient is on IV antibiotics and pressors. HD as per Nephrology. Discussed plan and EGD findings with ICU team. Case seen, reviewed and discussed with Dr. Hebert. Julissa Otriz PGY2 - Date & Time Date: 08/03/17 Time: 08:00
--- NOTE | 2017-08-03 08:25 | RAD ---
HISTORY: check placement of Central line COMPARISON: 08/02/2017 FINDINGS: LUNGS: Right apical opacity, possible pleural fluid or pleural thickening. Cannot rule out neoplasm. Consider evaluation with CT chest. There is some calcification apparently associated with this pleural thickening/ fluid suggesting that this may represent a chronic process. However, it has changed in extent when compared to examination of 12/02/2015 at which time calcification was evident but not significant pleural thickening. PLEURA: No pleural effusion. No pneumothorax. CARDIOVASCULAR: Normal heart size. Right subclavian central venous catheter. OSSEOUS STRUCTURES: Thoracolumbar spinal fixation. VISUALIZED UPPER ABDOMEN: Normal. OTHER FINDINGS: None. IMPRESSION: Pleural thickening right apex. Consider further evaluation with computed tomography to exclude neoplasm. No infiltrate.
[2017-08-03 08:55] LABS: VENOUS BLOOD GAS BASE EXCESS -3.5 mmol/L (0.0-2.0); VENOUS BLOOD GAS PO2 120 mm/Hg (30-55); VENOUS BLOOD PH 7.22 (7.32-7.43)
--- NOTE | 2017-08-03 08:59 | RAD ---
HISTORY: sob COMPARISON: 07/25/2017 FINDINGS: LUNGS: No active pulmonary disease. PLEURA: Right apical pleural thickening unchanged. CARDIOVASCULAR: Normal. OSSEOUS STRUCTURES: Thoracolumbar spinal fixation. VISUALIZED UPPER ABDOMEN: Normal. OTHER FINDINGS: None. IMPRESSION: Right apical pleural thickening, nonspecific. No infiltrate.
[2017-08-03] MEDS ORDERED: metroNIDAZOLE IV 500 mg/100 ml 500 MG/100 ML BAG IVPB SCH (09:15)
[2017-08-03] MEDS ORDERED: Cefepime 1gm in NS 100ml 1 GM/100 ML BAG IVPB SCH (10:00)
[2017-08-03] MEDS ORDERED: Propofol 10 mg/ml Inj (20 ML) ONE (10:05)
[2017-08-03] MEDS ORDERED: Etomidate 20 mg/10ml Inj IV ONE (10:05)
--- NOTE | 2017-08-03 10:30 | CP.CCUPN ---
Addendum entered and electronically signed by Sugey Beard DO 08/03/17 12:09 : As per ID: continue cefepime, add Flagyl and gave a dose of IV Vancomycin pending blood cx, urine cx; will continue Cefepime for the osteomyelitis; Addendum entered and electronically signed by Sugey Beard DO 08/03/17 11:58 : Hb 7.6 to 9.8 after 2pRBC. Levo 8 now. No stress steroid due to ulcers. Original Note: <Sugey Beard - Last Filed: 08/03/17 11:36> CCU Subjective - Physician Review Subjective (Free Text): 08/03/17 11:26 Got EGD by bedside. tolerate well. No abd pain. CCU Objective - Vital Signs / Intake & Output Vital Signs (Last 4 hours): Vital Signs Pulse Resp BP Pulse Ox 08/03/17 09:20 116 H 16 90 L 08/03/17 09:10 115 H 13 84 L 08/03/17 09:00 110 H 14 107/62 100 08/03/17 08:50 121 H 15 87 L 08/03/17 08:40 117 H 13 100 08/03/17 08:30 120 H 13 101/62 75 L 08/03/17 08:20 118 H 14 76 L 08/03/17 08:14 129 H 16 08/03/17 08:10 123 H 17 100 08/03/17 08:00 110 H 14 116/59 L 68 L 08/03/17 07:50 115 H 13 100 08/03/17 07:40 107 H 11 L 87 L 08/03/17 07:30 122 H 23 103/59 L 100 08/03/17 07:20 133 H 20 81 L 08/03/17 07:10 115 H 18 91 L 08/03/17 07:00 114 H 20 88/59 L 94 L 08/03/17 06:50 118 H 16 96 08/03/17 06:40 105 H 19 60 L 08/03/17 06:31 111 H 14 92/54 L 86 L Intake and Output (Last 8hrs): Intake & Output 08/02/17 08/03/17 08/03/17 22:59 06:59 14:59 Intake Total 325 3010 165 Output Total 0 Balance 325 3010 165 Weight 149 lb 11.2 oz 149 lb 3.2 oz Intake: IV 2350 165 Right Upper arm 2350 Oral 10 Blood Product 325 650 Red Blood Cells Cpd As1 325 Lr Unit [id number] Output: Urine 0 Urine, Voided 0 Other: # Bowel Movements 2 - Physical Exam Head: Positive for: Atraumatic Pupils: Positive for: PERRL Conjunctiva: Positive for: Other (pale) Mouth: Positive for: Dry Pharnyx: Negative for: ERYTHEMA, Strider Nose (Internal): Positive for: No Active Bleeding Neck: Positive for: Normal Range of Motion. Negative for: Meningeal Signs Respiratory/Chest: Positive for: Rales. Negative for: Respiratory Distress, Accessory Muscle Use Cardiovascular: Positive for: Murmurs, Irregular Rhythm Abdomen: Negative for: Tenderness, Distention Rectal: Positive for: Occult Blood. Negative for: Gross Blood, Melena Back: Positive for: Decubitus Ulcer Upper Extremity: Positive for: NORMAL PULSES, Other (dialysis site to left upper extremity clean and intact). Negative for: Edema Lower Extremity: Positive for: Edema (edema noted to left foot, capillary refill < 2s on pressor), Other Neurological: Positive for: Motor Func Grossly Intact, Normal Sensory Function Skin: Positive for: Erythematous (to left foot as noted above) Psychiatric: Positive for: Alert - Medications Active Medications: Active Medications Generic Name Dose Route Start Last Admin Trade Name Freq PRN Reason Stop Dose Admin Digoxin 0.125 mg 08/03/17 14:00 Digoxin PO 1400 FINN Pantoprazole Sodium 40 mg in 100 mls @ 20 mls/hr 08/02/17 19:45 08/03/17 07: 56 Protonix 40mg Ivpb IVPB 20 mls/hr .Q5H FINN Administration Norepinephrine Bitartrate 8 mg 508 mls @ 15.24 mls/hr 08/02/17 20:12 07:00 / Sodium Chloride IV 6 mcg/min .Q24H PRN 22.86 mls/hr TITRATE PER MD ORDER Titration Protocol 4 MCG/MIN Cefepime HCl 1 gm in 100 mls @ 100 mls/hr 08/03/17 10:00 08/03/17 09:45 Maxipime 1gm IVPB 100 mls/hr Q24H FINN Administration Protocol Metronidazole 500 mg in 100 mls @ 100 mls/hr 08/03/17 09:15 08/03/17 09:45 Flagyl IVPB 100 mls/hr Q8 [facility] Administration Protocol Midodrine 5 mg 08/03/17 10:00 08/03/17 09:51 Proamatine PO Not Given TID [facility] Verapamil HCl 2.5 mg 08/03/17 09:56 Verapamil Inj IVP Q4H PRN for heart rate >120 - Patient Studies Lab Studies: Lab Studies 08/03/17 08/03/17 08/03/17 Range/Units 08:06 05:00 05:00 WBC 21.3 H D (4.5-11.0) 10^3/ul RBC 2.49 L (3.5-6.1) 10^6/uL Hgb 7.6 L (12.0-16.0) g/dL Hct 22.7 L (36.0-48.0) % MCV 91.2 (80.0-105.0) fl MCH 30.5 (25.0-35.0) pg MCHC 33.5 (31.0-37.0) g/dl RDW 15.2 H (11.5-14.5) % Plt Count 82 L (120.0-450.0) 10^3/uL MPV 10.6 (7.0-11.0) fl Gran % 85.9 H (50.0-68.0) % Lymph % (Auto) 10.6 L (22.0-35.0) % Josephine % (Auto) 2.8 (1.0-6.0) % Eos % (Auto) 0.5 L (1.5-5.0) % Baso % (Auto) 0.2 (0.0-3.0) % Gran # 18.32 H (1.4-6.5) Lymph # (Auto) 2.3 (1.2-3.4) Josephine # (Auto) 0.6 (0.1-0.6) Eos # (Auto) 0.1 (0.0-0.7) Baso # (Auto) 0.05 (0.0-2.0) K/mm3 PT (9.4-12.5) SECONDS INR (0.93-1.08) pO2 120 H (30-55) mm/Hg VBG pH 7.22 L (7.32-7.43) VBG pCO2 62.0 H (40-60) VBG HCO3 25.4 (21-28) mmol/l VBG Total CO2 27.3 (22-28) mmol.L VBG O2 Sat (Calc) 99.4 H (40-65) % VBG Base Excess -3.5 L (0.0-2.0) mmol/L VBG Potassium 4.8 (3.6-5.2) mmol/L Sodium 139.0 144 (132-148) mmol/L Chloride 107.0 104 (98-107) mmol/L Glucose 104 (65-105) mg/dl Lactate 1.5 (0.7-2.1) mmol/L FiO2 21.0 % Potassium 4.7 (3.6-5.0) mmol/L Carbon Dioxide 24 (21-33) mmol/L Anion Gap 21 H (10-20) BUN 127 H* (7-21) mg/dL Creatinine 4.6 H (0.7-1.2) mg/dl Est GFR ( Amer) 12 Est GFR (Non-Af Amer) 10 Random Glucose 93 (70-110) mg/dL Calcium 7.9 L (8.4-10.5) mg/dL Total Bilirubin 0.9 (0.2-1.3) mg/dL AST 25 (14-36) U/L ALT 40 (7-56) U/L Alkaline Phosphatase 110 (38-126) U/L Total Protein 5.1 L (5.8-8.3) g/dL Albumin 2.3 L (3.0-4.8) g/dL Globulin 2.7 gm/dL Albumin/Globulin Ratio 0.8 L (1.1-1.8) Venous Blood Potassium 4.8 (3.6-5.2) mmol/L 08/03/17 08/03/17 Range/Units 05:00 05:00 WBC (4.5-11.0) 10^3/ul RBC (3.5-6.1) 10^6/uL Hgb (12.0-16.0) g/dL Hct (36.0-48.0) % MCV (80.0-105.0) fl MCH (25.0-35.0) pg MCHC (31.0-37.0) g/dl RDW (11.5-14.5) % Plt Count (120.0-450.0) 10^3/uL MPV (7.0-11.0) fl Gran % (50.0-68.0) % Lymph % (Auto) (22.0-35.0) % Josephine % (Auto) (1.0-6.0) % Eos % (Auto) (1.5-5.0) % Baso % (Auto) (0.0-3.0) % Gran # (1.4-6.5) Lymph # (Auto) (1.2-3.4) Josephine # (Auto) (0.1-0.6) Eos # (Auto) (0.0-0.7) Baso # (Auto) (0.0-2.0) K/mm3 PT 16.1 H (9.4-12.5) SECONDS INR 1.39 H (0.93-1.08) pO2 223 H (30-55) mm/Hg VBG pH 7.35 (7.32-7.43) VBG pCO2 44.0 (40-60) VBG HCO3 24.3 (21-28) mmol/l VBG Total CO2 25.7 (22-28) mmol.L VBG O2 Sat (Calc) 100.3 H (40-65) % VBG Base Excess -1.5 L (0.0-2.0) mmol/L VBG Potassium 4.8 (3.6-5.2) mmol/L Sodium 139.0 (132-148) mmol/L Chloride 108.0 H (98-107) mmol/L Glucose 92 (65-105) mg/dl Lactate 2.0 (0.7-2.1) mmol/L FiO2 21.0 % Potassium (3.6-5.0) mmol/L Carbon Dioxide (21-33) mmol/L Anion Gap (10-20) BUN (7-21) mg/dL Creatinine (0.7-1.2) mg/dl Est GFR ( Amer) Est GFR (Non-Af Amer) Random Glucose (70-110) mg/dL Calcium (8.4-10.5) mg/dL Total Bilirubin (0.2-1.3) mg/dL AST (14-36) U/L ALT (7-56) U/L Alkaline Phosphatase (38-126) U/L Total Protein (5.8-8.3) g/dL Albumin (3.0-4.8) g/dL Globulin gm/dL Albumin/Globulin Ratio (1.1-1.8) Venous Blood Potassium 4.8 (3.6-5.2) mmol/L Laboratory Results - last 24 hr 08/03/17 08/03/17 08/03/17 05:00 05:00 05:00 WBC 21.3 H D RBC 2.49 L Hgb 7.6 L Hct 22.7 L MCV 91.2 MCH 30.5 MCHC 33.5 RDW 15.2 H Plt Count 82 L MPV 10.6 Gran % 85.9 H Lymph % (Auto) 10.6 L Josephine % (Auto) 2.8 Eos % (Auto) 0.5 L Baso % (Auto) 0.2 Gran # 18.32 H Lymph # (Auto) 2.3 Josephine # (Auto) 0.6 Eos # (Auto) 0.1 Baso # (Auto) 0.05 PT 16.1 H INR 1.39 H pO2 223 H VBG pH 7.35 VBG pCO2 44.0 VBG HCO3 24.3 VBG Total CO2 25.7 VBG O2 Sat (Calc) 100.3 H VBG Base Excess -1.5 L VBG Potassium 4.8 Sodium 139.0 Chloride 108.0 H Glucose 92 Lactate 2.0 FiO2 21.0 Potassium Carbon Dioxide Anion Gap BUN Creatinine Est GFR ( Amer) Est GFR (Non-Af Amer) Random Glucose Calcium Total Bilirubin AST ALT Alkaline Phosphatase Total Protein Albumin Globulin Albumin/Globulin Ratio Venous Blood Potassium 4.8 08/03/17 08/03/17 05:00 08:06 WBC RBC Hgb Hct MCV MCH MCHC RDW Plt Count MPV Gran % Lymph % (Auto) Josephine % (Auto) Eos % (Auto) Baso % (Auto) Gran # Lymph # (Auto) Josephine # (Auto) Eos # (Auto) Baso # (Auto) PT INR pO2 120 H VBG pH 7.22 L VBG pCO2 62.0 H VBG HCO3 25.4 VBG Total CO2 27.3 VBG O2 Sat (Calc) 99.4 H VBG Base Excess -3.5 L VBG Potassium 4.8 Sodium 144 139.0 Chloride 104 107.0 Glucose 104 Lactate 1.5 FiO2 21.0 Potassium 4.7 Carbon Dioxide 24 Anion Gap 21 H BUN 127 H* Creatinine 4.6 H Est GFR ( Amer) 12 Est GFR (Non-Af Amer) 10 Random Glucose 93 Calcium 7.9 L Total Bilirubin 0.9 AST 25 ALT 40 Alkaline Phosphatase 110 Total Protein 5.1 L Albumin 2.3 L Globulin 2.7 Albumin/Globulin Ratio 0.8 L Venous Blood Potassium 4.8 EKG/Cardiology Studies: Cardiology / EKG Studies 08/03/17 09:38 EKG [ELECTROCARDIOGRAM] Stat Comment: Reason For Exam: trops elevated Critical Care Progress Note - Nutrition Nutrition: Nutrition Category Date Time Status NPO Diet [DIET] Diets 08/02/17 Dinner Ordered Assessment/Plan - Assessment and Plan (Free Text) Plan: Ms Lang, 61 F, had left foot wound with osteomyelitis, A-fib on warfarin, severe PAD, ESRD/anuric (last dialysis Monday), Hypotension, hypothyroidism, Multiple Myeloma (Dx > 10 years ago) to be on cefepime 4-6 weeks, discharge to [facility] last Monday. [place], daughter observed her having a lot of pain, dark vomitus x 1. Dark stool x 2 before transfer to ED. Overnight, 300cc melenoic stool x 2. She was originally Dialysis on MWF, but in [facility] TTS. She got 3pRBC and 2FFP A: Hemorrhagic 2/2 GI bleed vs septic shock from L foot osteomyelitis/R foot heel ulcer R/O sepsis causeing coagulopathy Neuro lethargic, easily awaken Cardiology baseline BP 80s/50s Currently on Levophed drip (6), will titrate as necessary Midodrine 5 mg PO TID - NPO Digoxin 0.125 Hold BP medications Elevated troponins likely due to ESRD Pulmonology Nasal cannula as needed ____CXR now and PM CXR: mild fluid overload, POx 90s on 4L laying down Gastroenterology Bedside endoscopy: clean based esophageal and duo Protonix drip NPO Monitor H/H Plan: repeat EGD in 2 days, colonoscopy Endocrine Maintain euglycemia Renal ESRD last Monday Dr. Sloan, Nephrology Kayexcelate 30 gm given in the ED Replete electrolytes as needed Infectious Diseases Given Vancomycin in the ED Ordered for a dose of Cefepime ID consulted Will trend the lactate Heme/Onc Given Vitamin K in the ED Transfused 3rd pRBC, 2nd FFP H/H Q6 Prophylaxis Protonix drip VTE contraindicated s/r/d/w Dr. Bolanos <Kin Bolanos - Last Filed: 08/03/17 12:18> CCU Objective - Vital Signs / Intake & Output Vital Signs (Last 4 hours): Vital Signs Pulse Resp BP Pulse Ox 08/03/17 10:57 100 H 16 81/42 L 08/03/17 09:20 116 H 16 90 L 08/03/17 09:10 115 H 13 84 L 08/03/17 09:00 110 H 14 107/62 100 08/03/17 08:50 121 H 15 87 L 08/03/17 08:40 117 H 13 100 08/03/17 08:30 120 H 13 101/62 75 L 08/03/17 08:20 118 H 14 76 L 08/03/17 08:14 129 H 16 Intake and Output (Last 8hrs): Intake & Output 08/02/17 08/03/17 08/03/17 22:59 06:59 14:59 Intake Total 325 3010 275 Output Total 0 Balance 325 3010 275 Weight 149 lb 11.2 oz 149 lb 3.2 oz Intake: IV 2350 275 Right Upper arm 2350 Oral 10 Blood Product 325 650 Red Blood Cells Cpd As1 325 Lr Unit [id number] Output: Urine 0 Urine, Voided 0 Other: # Bowel Movements 2 - Medications Active Medications: Active Medications Generic Name Dose Route Start Last Admin Trade Name Freq PRN Reason Stop Dose Admin Digoxin 0.125 mg 08/03/17 14:00 Digoxin PO 1400 FINN Pantoprazole Sodium 40 mg in 100 mls @ 20 mls/hr 08/02/17 19:45 08/03/17 07: 56 Protonix 40mg Ivpb IVPB 20 mls/hr .Q5H FINN Administration Norepinephrine Bitartrate 8 mg 508 mls @ 15.24 mls/hr 08/02/17 20:12 12:00 / Sodium Chloride IV 10 mcg/min .Q24H PRN 38.1 mls/hr TITRATE PER MD ORDER Titration Protocol 4 MCG/MIN Cefepime HCl 1 gm in 100 mls @ 100 mls/hr 08/03/17 10:00 08/03/17 09:45 Maxipime 1gm IVPB 100 mls/hr Q24H FINN Administration Protocol Metronidazole 500 mg in 100 mls @ 100 mls/hr 08/03/17 09:15 08/03/17 09:45 Flagyl IVPB 100 mls/hr Q8 FINN Administration Protocol Midodrine 5 mg 08/03/17 10:00 08/03/17 09:51 Proamatine PO Not Given TID FNIN Verapamil HCl 2.5 mg 08/03/17 09:56 Verapamil Inj IVP Q4H PRN for heart rate >120 - Patient Studies Lab Studies: Lab Studies 08/03/17 08/03/17 08/03/17 Range/Units 11:30 08:06 05:00 WBC (4.5-11.0) 10^3/ul RBC (3.5-6.1) 10^6/uL Hgb 9.8 L D (12.0-16.0) g/dL Hct 29.3 L (36.0-48.0) % MCV (80.0-105.0) fl MCH (25.0-35.0) pg MCHC (31.0-37.0) g/dl RDW (11.5-14.5) % Plt Count (120.0-450.0) 10^3/uL MPV (7.0-11.0) fl Gran % (50.0-68.0) % Lymph % (Auto) (22.0-35.0) % Josephine % (Auto) (1.0-6.0) % Eos % (Auto) (1.5-5.0) % Baso % (Auto) (0.0-3.0) % Gran # (1.4-6.5) Lymph # (Auto) (1.2-3.4) Josephine # (Auto) (0.1-0.6) Eos # (Auto) (0.0-0.7) Baso # (Auto) (0.0-2.0) K/mm3 PT (9.4-12.5) SECONDS INR (0.93-1.08) pO2 120 H (30-55) mm/Hg VBG pH 7.22 L (7.32-7.43) VBG pCO2 62.0 H (40-60) VBG HCO3 25.4 (21-28) mmol/l VBG Total CO2 27.3 (22-28) mmol.L VBG O2 Sat (Calc) 99.4 H (40-65) % VBG Base Excess -3.5 L (0.0-2.0) mmol/L VBG Potassium 4.8 (3.6-5.2) mmol/L Sodium 139.0 144 (132-148) mmol/L Chloride 107.0 104 (98-107) mmol/L Glucose 104 (65-105) mg/dl Lactate 1.5 (0.7-2.1) mmol/L FiO2 21.0 % Potassium 4.7 (3.6-5.0) mmol/L Carbon Dioxide 24 (21-33) mmol/L Anion Gap 21 H (10-20) BUN 127 H* (7-21) mg/dL Creatinine 4.6 H (0.7-1.2) mg/dl Est GFR ( Amer) 12 Est GFR (Non-Af Amer) 10 Random Glucose 93 (70-110) mg/dL Calcium 7.9 L (8.4-10.5) mg/dL Total Bilirubin 0.9 (0.2-1.3) mg/dL AST 25 (14-36) U/L ALT 40 (7-56) U/L Alkaline Phosphatase 110 (38-126) U/L Total Protein 5.1 L (5.8-8.3) g/dL Albumin 2.3 L (3.0-4.8) g/dL Globulin 2.7 gm/dL Albumin/Globulin Ratio 0.8 L (1.1-1.8) Venous Blood Potassium 4.8 (3.6-5.2) mmol/L 08/03/17 08/03/17 08/03/17 Range/Units 05:00 05:00 05:00 WBC 21.3 H D (4.5-11.0) 10^3/ul RBC 2.49 L (3.5-6.1) 10^6/uL Hgb 7.6 L (12.0-16.0) g/dL Hct 22.7 L (36.0-48.0) % MCV 91.2 (80.0-105.0) fl MCH 30.5 (25.0-35.0) pg MCHC 33.5 (31.0-37.0) g/dl RDW 15.2 H (11.5-14.5) % Plt Count 82 L (120.0-450.0) 10^3/uL MPV 10.6 (7.0-11.0) fl Gran % 85.9 H (50.0-68.0) % Lymph % (Auto) 10.6 L (22.0-35.0) % Josephine % (Auto) 2.8 (1.0-6.0) % Eos % (Auto) 0.5 L (1.5-5.0) % Baso % (Auto) 0.2 (0.0-3.0) % Gran # 18.32 H (1.4-6.5) Lymph # (Auto) 2.3 (1.2-3.4) Josephine # (Auto) 0.6 (0.1-0.6) Eos # (Auto) 0.1 (0.0-0.7) Baso # (Auto) 0.05 (0.0-2.0) K/mm3 PT 16.1 H (9.4-12.5) SECONDS INR 1.39 H (0.93-1.08) pO2 223 H (30-55) mm/Hg VBG pH 7.35 (7.32-7.43) VBG pCO2 44.0 (40-60) VBG HCO3 24.3 (21-28) mmol/l VBG Total CO2 25.7 (22-28) mmol.L VBG O2 Sat (Calc) 100.3 H (40-65) % VBG Base Excess -1.5 L (0.0-2.0) mmol/L VBG Potassium 4.8 (3.6-5.2) mmol/L Sodium 139.0 (132-148) mmol/L Chloride 108.0 H (98-107) mmol/L Glucose 92 (65-105) mg/dl Lactate 2.0 (0.7-2.1) mmol/L FiO2 21.0 % Potassium (3.6-5.0) mmol/L Carbon Dioxide (21-33) mmol/L Anion Gap (10-20) BUN (7-21) mg/dL Creatinine (0.7-1.2) mg/dl Est GFR ( Amer) Est GFR (Non-Af Amer) Random Glucose (70-110) mg/dL Calcium (8.4-10.5) mg/dL Total Bilirubin (0.2-1.3) mg/dL AST (14-36) U/L ALT (7-56) U/L Alkaline Phosphatase (38-126) U/L Total Protein (5.8-8.3) g/dL Albumin (3.0-4.8) g/dL Globulin gm/dL Albumin/Globulin Ratio (1.1-1.8) Venous Blood Potassium 4.8 (3.6-5.2) mmol/L Laboratory Results - last 24 hr 08/03/17 08/03/17 08/03/17 05:00 05:00 05:00 WBC 21.3 H D RBC 2.49 L Hgb 7.6 L Hct 22.7 L MCV 91.2 MCH 30.5 MCHC 33.5 RDW 15.2 H Plt Count 82 L MPV 10.6 Gran % 85.9 H Lymph % (Auto) 10.6 L Josephine % (Auto) 2.8 Eos % (Auto) 0.5 L Baso % (Auto) 0.2 Gran # 18.32 H Lymph # (Auto) 2.3 Josephine # (Auto) 0.6 Eos # (Auto) 0.1 Baso # (Auto) 0.05 PT 16.1 H INR 1.39 H pO2 223 H VBG pH 7.35 VBG pCO2 44.0 VBG HCO3 24.3 VBG Total CO2 25.7 VBG O2 Sat (Calc) 100.3 H VBG Base Excess -1.5 L VBG Potassium 4.8 Sodium 139.0 Chloride 108.0 H Glucose 92 Lactate 2.0 FiO2 21.0 Potassium Carbon Dioxide Anion Gap BUN Creatinine Est GFR ( Amer) Est GFR (Non-Af Amer) Random Glucose Calcium Total Bilirubin AST ALT Alkaline Phosphatase Total Protein Albumin Globulin Albumin/Globulin Ratio Venous Blood Potassium 4.8 08/03/17 08/03/17 08/03/17 05:00 08:06 11:30 WBC RBC Hgb 9.8 L D Hct 29.3 L MCV MCH MCHC RDW Plt Count MPV Gran % Lymph % (Auto) Josephine % (Auto) Eos % (Auto) Baso % (Auto) Gran # Lymph # (Auto) Josephine # (Auto) Eos # (Auto) Baso # (Auto) PT INR pO2 120 H VBG pH 7.22 L VBG pCO2 62.0 H VBG HCO3 25.4 VBG Total CO2 27.3 VBG O2 Sat (Calc) 99.4 H VBG Base Excess -3.5 L VBG Potassium 4.8 Sodium 144 139.0 Chloride 104 107.0 Glucose 104 Lactate 1.5 FiO2 21.0 Potassium 4.7 Carbon Dioxide 24 Anion Gap 21 H BUN 127 H* Creatinine 4.6 H Est GFR ( Amer) 12 Est GFR (Non-Af Amer) 10 Random Glucose 93 Calcium 7.9 L Total Bilirubin 0.9 AST 25 ALT 40 Alkaline Phosphatase 110 Total Protein 5.1 L Albumin 2.3 L Globulin 2.7 Albumin/Globulin Ratio 0.8 L Venous Blood Potassium 4.8 EKG/Cardiology Studies: Cardiology / EKG Studies 08/03/17 09:38 EKG [ELECTROCARDIOGRAM] Stat Comment: Reason For Exam: trops elevated Critical Care Progress Note - Nutrition Nutrition: Nutrition Category Date Time Status NPO Diet [DIET] Diets 08/02/17 Dinner Ordered Assessment/Plan - Assessment and Plan (Free Text) Plan: Patient seen and examined on rounds with resident, agree with note with following additions/exceptions: 1 F, had left foot wound with osteomyelitis, A-fib on warfarin, severe PAD, ESRD /anuric (last dialysis Monday), Hypotension, hypothyroidism, Multiple Myeloma a /w hemorrhagic shock and septic shock, given 3u PRBC, and 2U FFP, s/p EGD today which showed ulcers, no active bleeding. Currently the patient is on Levophed 8mcg/min, SBP 120s, awake, alert, afebrile. GI, renal, consulted. On broad spectrum abx. ID following. Septic Shock Hemorrhagic Shock GIB Anemia ESRD on HD Recommend: - supp o2 as needed - duonebs PRN - follow up Pulm - Broad spectrum abx as per ID, follow up cultures, procal - Vasopressor support, stress dose steroids - monitor HH, transfuse goal HH>9 - GI follow up - ECHO - Renal consult, for possible HD - PPI - NPO - repeat EGD in 2 days as per GI, may need colonoscopy - GI ppx, - DVT ppx, SCDs - Monitor in MICU Criticalc are time 40 minutes
[2017-08-03] MEDS ORDERED: Simethicone 40 mg/0.6 ml Liquid (30 ml) ONE (10:41)
--- NOTE | 2017-08-03 10:58 | CARD ---
APPROVED REPORT EKG Measurement Heart [id number] <Conclusion> Atrial fibrillation with rapid ventricular response Low voltage QRS Left anterior fascicular block Possible Anterolateral infarct, age undetermined Abnormal ECG
[2017-08-03 11:47] LABS: HEMOGLOBIN 9.8 g/dL (12.0-16.0)
[2017-08-03 12:01] LABS: MEAN CELL VOLUME 88.9 fl (80.0-105.0); MEAN CORPUSCULAR HEMOGLOBIN 29.9 pg (25.0-35.0); MEAN CORPUSCULAR HGB CONC 33.7 g/dl (31.0-37.0); MEAN PLATELET VOLUME 11.7 fl (7.0-11.0); RBC 3.24 10^6/uL (3.5-6.1); RED CELL DISTRIBUTION WIDTH 15.4 % (11.5-14.5)
--- NOTE | 2017-08-03 12:02 | RAD ---
HISTORY: r/o fluid overload COMPARISON: 08/03/2017 at 5:44 a.m. FINDINGS: LUNGS: No active pulmonary disease. PLEURA: Blunting of both costophrenic angles possibly reflecting small pleural effusions. Right apical pleural thickening unchanged. CARDIOVASCULAR: Congestive change. Right subclavian multi lumen central venous catheter. OSSEOUS STRUCTURES: No significant abnormalities. VISUALIZED UPPER ABDOMEN: Normal. OTHER FINDINGS: None. IMPRESSION: Congestive change. Possible small bilateral pleural effusion. Persistent right apical pleural thickening.
--- NOTE | 2017-08-03 12:05 | CP.PCM.CON ---
History of Present Illness - History of Present Illness History of Present Illness: 61 year old female with PMH of ESRD on HD, multiple myeloma S/P chemotherapy and radiation therapy, atrial fibrillation on anticoagulation was recently in [facility] because of left hallux infected ulcer with osteomyelitis. She had Serratia growing and was put on Cefepime to complete 4-6 weeks. She is now back in [facility] because of bloody stools and an episode of hematemesis. The patient also has generalized weakness. She denies headache, no dizziness, no fever or chills, no abdominal pain, no chest pain, no SOB at rest, no cough or rhinorrhea, no diarrhea, no dysuria. In the ED, the patient is noted to have leukocytosis and tachycardia as well. Infectious Diseases consult is requested to further evaluate and manage. Review of Systems - Review of Systems All systems: reviewed and no additional remarkable complaints except (as per HPI ) Past Patient History - Infectious Disease Hx of Infectious Diseases: None - Past Social History Smoking Status: Never Smoked - CARDIAC Hx Atrial Fibrillation: Yes Hx Pacemaker: No Hx Peripheral Edema: Yes (ble +1 pitting dry leathery skin) Hx Peripheral Vascular Disease: Yes Other/Comment: left foot cool to touch - PULMONARY Other/Comment: pt had sleep study and was dx with sleep apnea by dr noel, could not tolerate cpap at home needs to follow up with dr noel but has not been feeling well - NEUROLOGICAL Hx Neurological Disorder: No - RENAL Date of Last Dialysis Treatment: 08/01/17 Hx Renal Failure: Yes - ENDOCRINE/METABOLIC Hx Endocrine Disorders: No - HEMATOLOGICAL/ONCOLOGICAL Hx Cancer: Yes Other/Comment: myeloma, osteomyelitis - INTEGUMENTARY Hx Dermatological Problems: Yes Other/Comment: ble discolored +1 pitting edema leathery skin, generalized dry flakey skin over body, dry skin to buttocks no openings, left foot toes ardry flakey skin both feete dry hard 1/2 nail missing from great toe, closed blister to top of foot, ischemic ulceration to left foot, painful, dry skin and toes r ft - MUSCULOSKELETAL/RHEUMATOLOGICAL Hx Falls: No - GASTROINTESTINAL Hx Gastrointestinal Disorders: Yes (weight loss poor appetite) - GENITOURINARY/GYNECOLOGICAL Hx Genitourinary Disorders: Yes (gangrenous cystitis) - PSYCHIATRIC Hx Anxiety: Yes Hx Emotional Abuse: No Hx Physical Abuse: No Hx Substance Use: No - SURGICAL HISTORY Hx Cholecystectomy: Yes (2007) Other/Comment: left arm av fistula, r arm port in and out post chemo when dx with multiple myeloma, angiogram rle 07/04/17 dr vale barakat, fistulagram - ANESTHESIA Hx Anesthesia Reactions: Yes (HIGH TOLERANCE) Hx Malignant Hyperthermia: No Meds Allergies/Adverse Reactions: Allergies Allergy/AdvReac Type Severity Reaction Status Date / Time IV CONTRAST Allergy RASH Uncoded 07/24/17 07:23 - Medications Medications: Current Medications Digoxin (Digoxin) 0.125 mg PO 1400 FINN Pantoprazole Sodium (Protonix 40mg Ivpb) 40 mg in 100 mls @ 20 mls/hr IVPB .Q5H FINN Last Admin: 08/02/17 19:54 Dose: 20 mls/hr Norepinephrine Bitartrate 8 mg (/ Sodium Chloride) 508 mls @ 15.24 mls/hr IV .Q24H PRN; Protocol; 4 MCG/MIN PRN Reason: TITRATE PER MD ORDER Last Admin: 08/02/17 20:20 Dose: 4 mcg/min, 15.24 mls/hr Cefepime HCl (Maxipime 1gm) 1 gm in 100 mls @ 100 mls/hr IVPB STAT STA PRN Reason: Protocol Stop: 08/02/17 22:10 Midodrine (Proamatine) 5 mg PO TID [facility] Physical Exam - Constitutional Appears: Chronically Ill, Other (somewhat lethargic but easily arousable and responds to questions and is conversant) - Head Exam Head Exam: NORMAL INSPECTION - ENT Exam ENT Exam: Mucous Membranes Moist - Neck Exam Neck exam: Negative for: Lymphadenopathy, Meningismus - Respiratory Exam Respiratory Exam: Decreased Breath Sounds - Cardiovascular Exam Cardiovascular Exam: +S1, +S2 - GI/Abdominal Exam GI & Abdominal Exam: Soft. absent: Tenderness - Extremities Exam Additional comments: left foot with dressings in place Results - Vital Signs Recent Vital Signs: Last Vital Signs Temp 98 F 08/02/17 20:44 Pulse 91 H 08/02/17 20:44 Resp 19 08/02/17 20:44 BP 95/51 L 08/02/17 20:44 Pulse Ox 95 08/02/17 20:01 - Labs Result Diagrams: 08/03/17 11:30 08/03/17 05:00 Assessment & Plan - Assessment and Plan (Free Text) Plan: Assessment systemic inflammatory response syndrome, consider due to acute GI bleeding left hallux infected ulcer with skin and skin structure infection with osteomyelitis, growing Serratia from the wound ESRD on HD multiple myeloma S/P chemotherapy and radiation therapy atrial fibrillation on anticoagulation Plan continue cefepime, add Flagyl and gave a dose of IV Vancomycin pending blood cx , urine cx; will continue Cefepime for the osteomyelitis; follow up further plans of GI will monitor clinically
[2017-08-03 12:14] LABS: WHITE BLOOD COUNT 25.7 10^3/ul (4.5-11.0)
[2017-08-03] MEDS: Norepinephrine 8 MG in Sodium Chloride 0.9% 500 ML IV PRN (12:35)
[2017-08-03] MEDS ORDERED: Digoxin 125 mcg (0.125 mg) Tab PO SCH (14:00)
[2017-08-03] MEDS ORDERED: Amiodarone 150 mg/D5W 100 ml 150 MG/100 ML BAG IVPB ONE (14:52)
[2017-08-03 16:13] VITALS: BP 101/47; PULSE 113; RESP 14; TEMP 97.9; O2SAT 91
--- NOTE | 2017-08-03 18:59 | CON ---
DATE: 08/03/2017 REASON FOR CONSULTATION: Severe anemia, shortness of breath, hypercoagulable state, ESRD. HISTORY OF PRESENT ILLNESS: A 61-year-old lady known to me from outpatient dialysis, recent hospital evaluation. The patient was discharged on 07/28 to [facility] for rehabilitation. The patient was diagnosed with osteomyelitis during that admission. She was receiving antibiotics. The patient has a history of atrial fibrillation. She has been on Coumadin. She was brought to the emergency room yesterday because of one episode of coffee-ground vomitus and some rectal bleeding as per the daughter. In the emergency room, the patient had three large melanotic bowel movements. She was found to have an elevated INR. Her INR was therapeutic. She was found to be hypotensive. Her blood pressure was 74/48 at initial presentation. She was found to be tachycardic. Heart rate was 114. She was also found to be very weak. Her initial hemoglobin was 8.7. The patient received 1 unit of blood yesterday, but her repeat hemoglobin this morning was 7.6. The patient is currently seen in the ICU. She was admitted to the ICU for management of her acute GI bleed. The patient has received 3 units of blood so far. She has received 2 units of FFP and also has received 2 liters of fluid. The patient underwent endoscopy this morning. She was found to have an esophageal ulcer with a clean base and a duodenal ulcer with a clean base. No active GI bleed. In the ICU, currently, she is tachypneic. She is hypotensive, on Levophed. Her blood pressure is 90/45, heart rate is 117. Her total intake is 3300 since admission. She remains on pressors. She is on Levophed at 10 mcg per kilogram per minute. Her BUN is 127 and creatinine is 4.7. PAST MEDICAL AND SURGICAL HISTORY: Multiple myeloma, atrial fibrillation, ESRD, recent history of weight loss, osteomyelitis, secondary hyperparathyroidism. FAMILY HISTORY: Noncontributory. SOCIAL HISTORY: No smoking, no alcohol use, no IV drug abuse. ALLERGIES: IV CONTRAST. CURRENT MEDICATIONS: Digoxin 0.125, Flagyl 500 every 8 hours, Maxipime 1 g daily, Levophed 12 mcg per minute, ProAmatine, Protonix, verapamil 2.5 IV push every 4 hours. REVIEW OF SYSTEMS: All systems are reviewed, pertinent positives as mentioned in history of presenting illness, rest unremarkable. PHYSICAL EXAMINATION GENERAL: Elderly lady lying in bed, in [id number] respiratory distress. VITAL SIGNS: Blood pressure 90/45, heart rate 117, respiratory rate 18-20, temperature 97.8. HEENT: Normocephalic, atraumatic, positive pallor. NECK: Supple, no JVD. LUNGS: Bilateral equal air entry, bilateral crackles jail up, equal expansion. CARDIAC: S1 and S2, regular rate and rhythm, no murmur, no rub. ABDOMEN: Obese, distended, soft, nontender, bowel sounds present. EXTREMITIES: Chronic stasis changes, tough leathery skin. INTAKE AND OUTPUT: 3335/0. LABORATORY DATA: WBC 26, hemoglobin 9.8, hematocrit 29, platelets 100. Sodium 144, potassium 4.7, chloride 104, CO2 of 24, BUN 127, creatinine 4.6, glucose 93, calcium 7.9, albumin 2.3, corrected calcium is 9, digoxin 1.3. Chest x-ray, congestive change, possible bilateral pleural effusions, persistent right apical pleural thickening. ASSESSMENT: 1. Acute gastrointestinal bleed, significant bleed. The patient's hemoglobin was 15 on 07/28. She came in with a hemoglobin of 8.7, this subsequently dropped to 7.6 despite 1 unit of blood transfusion. 2. Endoscopy revealing no active bleeding at this time, but she has a duodenal and esophageal ulcer. 3. Osteomyelitis. 4. Hemorrhagic shock, hypotension, tachycardia. 5. History of multiple myeloma. 6. End-stage renal disease. 7. Rising WBC count. PLAN: 1. The patient has received 3 units of blood, 2 units of FFP, 2 liters of fluid. Currently, the patient is volume overloaded and in mild respiratory failure. 2. Long discussion with Dr. Bolanos, ICU attending. The patient needs ultrafiltration at the minimum today. 3. Today is her dialysis day, ideally she should get dialysis, but she may not be able to tolerate it because of her hemodynamic status and hence ultrafiltration is advised. 4. Continue antibiotics for previous osteomyelitis. 5. Panculture again. 6. Monitor H and H. 7. Continue to hold Coumadin. Case discussed at length with ICU team. More than 35 minutes spent in the care of this critically ill patient. Breana Schrader MD [facility] # [id number]
--- NOTE | 2017-08-03 23:55 | CARD ---
APPROVED REPORT EKG Measurement Heart [id number] <Conclusion> Atrial fibrillation Low voltage QRS Septal infarct, age undetermined Lateral infarct, age undetermined Abnormal ECG
--- NOTE | 2017-08-04 01:31 | CON ---
DATE: 08/03/2017 PULMONARY CRITICAL CARE CONSULT REFERRING PHYSICIAN: Gabrielle Branham MD. REASON FOR CONSULT: Hemorrhagic shock, anemia, shortness of breath, history of renal failure, dialysis dependent. HISTORY OF PRESENT ILLNESS: This is a 61-year-old female with past medical history significant for renal failure, dialysis dependent, recently discharged from [facility], has a history of atrial fibrillation, osteomyelitis, multiple myeloma, hyperparathyroidism, has been on anticoagulation. Admitted to ER with GI bleed, has a melanotic stool with iatrogenic coagulopathy. She was hypotensive and present in the emergency room. Blood pressure was in the . She was resuscitated with packed RBCs, received total 3 units of RBCs. Had endoscopy done shows esophageal and gastric ulcer, but nonbleeding. There was some blood in the gastric fundus, presently seen in the Intensive Care Unit on pressors. She is anuric, sleepy, arousable. Denying any cough or chest pain. No abdominal pain. No leg pain. PAST MEDICAL HISTORY: As per history of present illness. SOCIAL HISTORY: Nonsmoker, nonalcoholic. FAMILY HISTORY: No significant cardiopulmonary disease reported. ALLERGIES: NONE KNOWN, BASICALLY IV CONTRAST, I BELIEVE FROM KIDNEY FAILURE POINT OF VIEW. MEDICATIONS: She is on Levophed, cefepime 1 g IV daily, verapamil IV p.r.n. basis, Protonix IV, digoxin, Flagyl, received 3 units of packed RBCs. REVIEW OF SYSTEMS: She is sleepy, arousable. No headache. No rhinitis. No cough. No chest pain. Denies any nausea. No abdominal pain. Has a melena. No leg pain. No leg swelling. PHYSICAL EXAMINATION: GENERAL: Lying in the bed, sleepy and arousable. VITAL SIGNS: Temp is 98, heart rate is 110, respiratory rate is 20, blood pressure was about 90/50, pulse ox was 96% on nasal cannula. HEENT: Moist mucous membrane. Crowded airway. NECK: Supple. No JVD. LUNGS: Have a few scattered rhonchi and basilar crackles. HEART: S1 and S2. ABDOMEN: Soft, nontender. No organomegaly. EXTREMITIES: No edema. NEUROLOGICAL: Awake and alert. Follows simple command. LABORATORY DATA: Shows hemoglobin on admission was 8.2 and dropped down to 7.6. Last hemoglobin is 9.8, hematocrit 29.3, WBC 25,000, platelet is 100. High INR of 1.39. VBG showed pH 7.22, pCO2 is 62, O2 of 120 on nasal cannula. Sodium 144, potassium 4.7, chloride 104, bicarbonate 24, BUN 127, creatinine 4.6, glucose at 93, calcium 7.9, AST of 25, ALT 40, alk phos is 110, albumin is 2.3. Microbiology: Blood culture has been negative. Last chest x-ray which is done around noontime or so shows congestive changes, small bilateral pleural effusion with apical thickening. IMPRESSION AND PLAN: Hemorrhagic shock, requiring multiunit packed red blood cells, also required Levophed. Renal failure with bilateral small pleural effusion, history of atrial fibrillation, multiple myeloma. Case discussed with Intensive Care Unit resident. Agreed with the present management. If need to, we will transfuse more. Will be seen by Nephrology. Decision is made to get her to the facility where dialysis is available. Temporarily, at [place], there is no dialysis available, but the patient is still stable. It is a good idea to transfer her there. Will not give any fluid at present time. As long as H&H stable, may hold even transfusion. Try to keep heart rate below 80. Follow up labs in the morning. Thank you and we will follow with you. Mile Nichols MD
--- NOTE | 2017-08-04 05:48 | CON ---
DATE: REASON FOR CONSULTATION: Atrial fibrillation, on Coumadin, multiple myeloma, end-stage renal disease, admitted with black tarry stool, elevated BNP and positive borderline troponin, cardiac evaluation. BRIEF CLINICAL HISTORY: A 61-year-old female with past medical history significant for multiple myeloma; end-stage renal disease, on dialysis; history of atrial fibrillation, on anticoagulation; was in [facility], noticed dark tarry stools, so the patient was transferred to [facility]. Initial admitting hemoglobin, the patient had 8.7, got 2 units of blood this morning, again the hemoglobin dropped to 7.6. The patient has elevated BNP and borderline troponin positive. The patient denies any chest pain. Denies any shortness of breath. Denies any palpitations. Currently in ICU 129, bed 1, getting blood transfusion. PAST MEDICAL HISTORY: Past history significant for atrial fibrillation, history of multiple myeloma; history of end-stage renal disease, on dialysis secondary to multiple myeloma and dialysis since 2001; history of gangrenous cystitis; history of peripheral arterial disease; history of recent intervention done by Interventional Radiology Dr. Morales and small vessel disease, medical treatment recommended; history of atrial fibrillation for more than 5 years, being followed by Dr. Jraed Villalta. SOCIAL HISTORY: Denies any smoking. Denies any history of alcohol abuse. CURRENT MEDICATIONS: The patient is taking tramadol, Coumadin 2 mg daily, Renagel, metoprolol, Sensipar and Fosamax 70 mg daily. ALLERGY: IV CONTRAST, GETS PEELING OF THE SKIN OF THE HAND. RECENT CARDIAC WORKUP: As follows; the patient had echocardiography on 07/25/2017, read by Dr. Yeung, that shows dilated RA, dilated right ventricle, normal size and systolic function of left ventricle consistent with RV pressure volume overload, mild concentric LVH, severe tricuspid regurgitation, moderate pulmonary hypertension, calculated ejection fraction 68% and RV systolic pressure of 39 mmHg recorded, read by Dr. Yeung dated 07/25/2017. REVIEW OF SYSTEMS: As per HPI. PHYSICAL EXAMINATION: VITAL SIGNS: Temperature afebrile, heart rate 121, blood pressure 107/62. HEENT: PERRLA. Extraocular muscles intact. NECK: Supple. No carotid bruit. No thyromegaly. CHEST: Clear to auscultation. HEART: S1 and S2 regular. ABDOMEN: Soft. EXTREMITIES: Clubbing and cyanosis negative. LABORATORY DATA: Blood workup as follows, WBC 21.3, hemoglobin 7.6, hematocrit 22.7, platelet count 82. Chemistry shows sodium 140, potassium 4.2 , chloride 104, carbon dioxide 24, anion gap of 21, BUN 127, creatinine 4.6. INR 1.39. EKG shows atrial fibrillation, heart rate 98. IMPRESSION: A 61-year-old female with past medical history significant for end-stage renal disease secondary to multiple myeloma, on dialysis since 2001; history of chronic atrial fibrillation of more than 5 years, on anticoagulation, being followed by Dr. Jared Villalta; history of gangrenous cystitis; history of severe peripheral arterial diseases, status post peripheral angiogram by the interventional radiologist Dr. Morales, medical treatment recommended, small vessel disease; history of gangrenous cystitis. Admitted from the [facility] because of black tarry stool, severely decreased hemoglobin, status post packed red blood cell transfusion, now presents with atrial fibrillation with rapid ventricular rate. Last echocardiogram showed preserved left ventricular function, right ventricular systolic pressure 43, dilated right atrium, right ventricle. RECOMMENDATION: Monitor H and H. Hold anticoagulation. We will closely follow with you and then we will put verapamil 2.5 every 4 hours p.r.n. for heart rate more than 120. We will follow with you. Overall, the patient's condition is critical. Long-term prognosis is guarded. Thank you Dr. Branham for providing us the opportunity in taking care of the patient, Ada Lang. Mile Martin MD
--- NOTE | 2017-08-04 06:13 | HP ---
DATE OF EXAM: 08/02/2017 CHIEF COMPLAINT: GI problem. HISTORY OF PRESENT ILLNESS: Ms. Rickey Cablalero is a 61-year-old female with history of osteomyelitis, past medical history of end-stage renal disease on hemodialysis on Monday, Monday and Monday, has atrial fibrillation on Coumadin, has multiple myeloma with PE, status post chemotherapy and radiation therapy, who presented to the emergency department from [facility] with high INR, vomiting blood, and bloody bowel movements. Patient states that she has had episodes of vomiting on the day of admission, reports as bloody; and patient had single bowel movement with blood. Patient reports that feeling fatigue, tired, weak, shortness of breath, has persistent decline of left foot with dressing change. We admitted the patient in the unit and called consult with milieu technician, Dr. Schrader; ID, Dr. Rancho Vanegas. Patient needs dialysis, getting antibiotics in the unit. PAST MEDICAL HISTORY: Atrial fibrillation, history of peripheral edema, left foot cool to touch, renal failure on hemodialysis, history of multiple myeloma, osteomyelitis, gangrenous cystitis, anxiety, cholecystectomy, left arm AV fistula, right port in and out, post chemotherapy for multiple myeloma, angiogram done, fistulogram done. FAMILY HISTORY: Father and mother, noncontributory. ALLERGIES: PATIENT IS ALLERGIC WITH IV CONTRAST. HABITS: Never smoked, no drugs, no ethanol. HOME MEDICATIONS: Sensipar, vitamins, midodrine, sulfasalazine, nephro vitamins, tramadol. REVIEW OF SYSTEMS: Patient was seen and examined at the bedside in the unit, looking comfortable. Feels fatigued, but no fever. No visual changes. No hearing changes. Shortness of breath. No coughing of sputum or wheezing. No chest pain. No syncope, having feeling of orthopnea. Has vomiting, hematochezia, hematemesis. No abdominal pain. No vaginal bleeding. No dizziness or focal weakness. PHYSICAL EXAMINATION: VITAL SIGNS: Temperature 98, pulse 91, respiratory rate 19, blood pressure 95/51, highest was 116/47, pulse oximetry 95%. HEENT: Head: Normocephalic, atraumatic. Eyes: PERRLA. Extraocular movements are intact. Conjunctivae are clear. Nose patent. Mucous membrane moist. NECK: Supple. No carotid bruit. No JVD or thyromegaly. CHEST: Positive wheezing bilaterally. ABDOMEN: Soft, nontender. No organomegaly. EXTREMITIES: Normal pulses, no edema of upper extremities. Lower extremities; edema noted to the left foot, pulses not palpable. There is serosanguineous drainage from the dorsum of the foot. NEUROLOGICAL: Patient is awake. Follows simple commands. LABORATORY DATA: White blood cells 14.6, hemoglobin 8.7, hematocrit 27.5, platelets 103. Sodium 142, potassium 5.5, BUN 117, creatinine 4.4, glucose 81. ASSESSMENT AND PLAN: Ms. Ada Lang has hyperkalemia, renal insufficiency, leukocytosis, anemia, and thrombocytosis. Patient has a history of osteomyelitis. She is on Coumadin with coagulopathy, atrial fibrillation, peripheral edema, peripheral vascular disease, left foot cool to touch, multiple myeloma, osteomyelitis. Patient is admitted. ID consult is called. Patient has a history of gangrenous cystitis. Patient needs dialysis because patient is not stable. We will stabilize the patient in the [facility] unit, and after stabilization, may be transferred to [facility]. Discussion done with the staff. Appreciated Dr. Schrader's and Dr. Vanegas's input. Continue antibiotics as per Dr. Vanegas. We will follow up. Gabrielle Branham MD
--- NOTE | 2017-08-04 19:10 | DS ---
CHIEF COMPLAINT: GI bleeding, coagulopathy. HISTORY OF PRESENT ILLNESS: Ms. Ada Lang, 61-year-old female with past medical history of osteomyelitis; atrial fibrillation; renal insufficiency, hemodialysis 3 times a week; had atrial fibrillation, was on Coumadin; history of multiple myeloma, treated with chemotherapy, radiation therapy, came to the emergency room at [facility] on 08/02/2017 from [facility]. Patient was not stable. Blood pressure was dropping and we admitted the patient, stabilized. Now patient will need dialysis and had problem in [facility] getting dialysis. Now, with family permission, we are transferring patient from [facility] to [facility] for dialysis and for continuity of care. PAST MEDICAL HISTORY: Atrial fibrillation, peripheral vascular disease, left foot cool to touch. Patient had sleep study and was diagnosed with sleep apnea by Dr. Nichols. Does not tolerate CPAP at home, need to follow up with Dr. Nichols; history of osteomyelitis. FAMILY HISTORY: Father and mother, noncontributory. HABITS: Never smoked. No drugs. No ethanol. ALLERGIES: PATIENT IS ALLERGIC TO IV CONTRAST. HOME MEDICATIONS: Reviewed by me. REVIEW OF SYSTEMS: Patient was seen and examined at the bedside in her room, looking comfortable. No nausea, vomiting. Feeling fatigued and tired. Denies headache or dizziness. No fever. No abdominal pain. No chest pain or shortness of breath at rest. No coughing, rhinorrhea, diarrhea, or dysuria, but patient has leukocytosis and tachycardia as well. Patient need dialysis and that is why we are transferring patient to [facility]. PHYSICAL EXAMINATION: VITAL SIGNS: Temperature 97.9, pulse 113, respiratory rate 14, blood pressure 91/63. HEENT: Head: Normocephalic, atraumatic. Eyes: PERRLA. Extraocular muscles intact. Conjunctivae clear. Nose patent. Mucous membranes moist. NECK: Supple. No carotid bruit, JVD or thyromegaly. CHEST: Bilaterally symmetrical. HEART: S1, S2 positive. LUNGS: Wheezing bilaterally. ABDOMEN: Soft, nontender. No organomegaly. EXTREMITIES: There is trace edema. ASSESSMENT AND PLAN: Ms. Ada Lang, a 61-year-old lady, with systemic inflammatory response syndrome, uncontrolled due to acute GI bleeding; left hallux infected ulcers with skin and skin structure infection with osteomyelitis, growing Serratia from the wound; end-stage renal disease, on hemodialysis; multiple myeloma, status post , and radiation therapy; atrial fibrillation, on anticoagulation. We will continue cefepime and Flagyl, did give dose of vancomycin. Multiple myeloma, status post chemotherapy and radiation therapy. We will continue cefepime. Flagyl is added and vancomycin. Seen by Infectious Disease, Dr. Rancho Vanegas. Seen by Dr. Breana Schrader. Hemorrhagic shock, hypotension, tachycardia, coagulopathy. Monitoring hemoglobin and hematocrit. Continue holding Coumadin. Patient is in need of hemodialysis but in [place], we have some problem. We are transferring patient to [facility]. I will do followup there. Gabrielle Branham MD MTDD
== END 2017-08-03 16:00 | disposition short-term general hospital (02) | DRG 871 ==
LOC: ED 17:01 → ERH 19:46 → CCU 21:15
PROVIDERS: ADMIT Internal Medicine; ATTEND Internal Medicine
PROC: 30233K1 Transfusion of Nonautologous Frozen Plasma into Peripheral Vein, Percutaneous Approach (ICD-10-PCS; 2017-08-02)
PROC: 30233N1 Transfusion of Nonautologous Red Blood Cells into Peripheral Vein, Percutaneous Approach (ICD-10-PCS; 2017-08-02)
PROC: 05HM33Z Insertion of Infusion Device into Right Internal Jugular Vein, Percutaneous Approach (ICD-10-PCS; 2017-08-03)
PROC: B543ZZA Ultrasonography of Right Jugular Veins, Guidance (ICD-10-PCS; 2017-08-03)
PROC: 0DJ08ZZ Inspection of Upper Intestinal Tract, Via Natural or Artificial Opening Endoscopic (ICD-10-PCS; principal; 2017-08-03 10:45)
DX: A41.9 Sepsis, unspecified organism (principal); N18.6 End stage renal disease; R57.8 Other shock; R65.21 Severe sepsis with septic shock; K92.2 Gastrointestinal hemorrhage, unspecified; C90.00 Multiple myeloma not having achieved remission; M86.9 Osteomyelitis, unspecified; N25.81 Secondary hyperparathyroidism of renal origin; L97.419 Non-pressure chronic ulcer of right heel and midfoot with unspecified severity; K22.10 Ulcer of esophagus without bleeding; E87.5 Hyperkalemia; I48.2 Chronic atrial fibrillation; I73.9 Peripheral vascular disease, unspecified; D50.0 Iron deficiency anemia secondary to blood loss (chronic); K26.9 Duodenal ulcer, unspecified as acute or chronic, without hemorrhage or perforation; K25.7 Chronic gastric ulcer without hemorrhage or perforation; Z99.2 Dependence on renal dialysis; Z79.01 Long term (current) use of anticoagulants; Z92.21 Personal history of antineoplastic chemotherapy; Z92.3 Personal history of irradiation; G47.30 Sleep apnea, unspecified